=== PATIENT | female | born 1965 | race Caucasian/White ===

== ENCOUNTER 2018-01-18 13:18 | Emergency (ER) | payer MEDICAID, SELFPAY ==
[2018-01-18 13:27] VITALS: BP 118/73; PULSE 61; RESP 16; TEMP 36.7; O2SAT 94
[2018-01-18 13:47] VITALS: RESP 18
--- NOTE | 2018-01-18 14:03 | W.ED.GENAD ---
Discharge Plan Disposition Patient Disposition: HOME Condition: Stable Discharge Details Chief Complaint: Chest Pain Clinical Impression: Chest pain Primary Care Provider: Bertha Castillo ED Provider: Abbi Galindo Home Meds and New Rx's Prescriptions: Continue gabapentin 300 MG capsule 300 - 600 mg PO BID RF: 0 omeprazole 20 MG capsule,delayed release(DR/EC) 20 mg PO DAILY RF: 0 aspirin [Aspir-81] 81 MG tablet,delayed release (DR/EC) 81 mg PO DAILY Qty: 120 RF: 0 lisinopril 20 MG tablet 20 mg PO DAILY Qty: 30 RF: 1 atorvastatin 20 MG tablet 20 mg PO HS Qty: 30 RF: 1 fluoxetine [Prozac] 20 MG capsule 20 mg PO DAILY RF: 0 acetaminophen [Mapap Extra Strength] 500 MG tablet 1,000 mg PO PRN PRNRF: 0 Discharge Instructions Instructions: Chest Pain (ED) Additional Instructions: Please return immediately to the emergency department if you develop any new or worsening symptoms or if you become otherwise concerned. It is extremely important that you make an appointment to be seen this week by your primary care doctor in follow-up for this visit. Referrals: Bertha Castillo [Primary Care Provider] - Discharge Data Discharge Date/Time-TO BE ENTERED AT DEPARTURE: 01/18/18 19:27 Medical Decision Making MDM Narrative Medical decision making narrative: Lazara Gasca is a 53 y/o woman with history of hypertension, hyperlipidemia presenting to the emergency department with sharp left-sided chest pain that began while walking, did not worsen with continued walking, did not improve quickly with rest, but has resolved since arriving in the emergency department. On exam patient is very well and nontoxic-appearing. She has benign cardiopulmonary exam. Concern for muscular skeletal versus GERD versus ACS versus PE. Plan for EKG, chest x-ray, screening labs, telemetry. Will monitor and reassess. Patient reports that she took ASA prior to arrival. Patient has remained pain-free throughout her ER visit. Repeat EKG unchanged. Labs are nondiagnostic, repeat troponin okay. Patient with significant risk factors, however nature of chest pain atypical for ACS. Discussed admission to the hospital for monitoring/stress versus outpatient stress test and patient elects for outpatient follow-up with cardiology and outpatient stress test. Lengthy discussion with patient regarding return to emergency department precautions and importance of outpatient follow-up with PCP, cardiology, and stress test this week. She is amenable to the plan. Medical Records Medical records reviewed: Yes I reviewed the patient's medical records. Imaging Data Radiologic Study: Attestation: I personally reviewed and interpreted this imaging study as follows: Radiologist's impression: PA AND LATERAL CHEST: Comparison 07/13/17. The heart is normal in size. The lungs are clear. The mediastinal structures and pleura appear intact. CONCLUSION: Normal chest. Lab Data Lab results reviewed: Yes I reviewed the patient's lab results. ECG Data Attestation: I personally reviewed and interpreted this ECG (s) as follows: Interpretation: EKG shows normal sinus rhythm at 60 with left axis, poor R-wave progression, no acute ischemic changes. No STEMI, nondiagnostic EKG EKG shows sinus bradycardia at 51 with left axis, poor R-wave progression, no acute ischemic changes, unchanged from prior HPI - General Adult General Mode of arrival: ambulatory. Date/Time Provider Initiated Documentation: 01/18/18 14:03. Limitations to Documentation: no limitations. Information obtained by: patient, RN notes reviewed and old records reviewed. HPI Narrative: Lazara Gasca is a 53 y/o woman with h/o HLD, HTN, GERD presenting to the emergency department with chest pain. Patient reports that she was walking today when she noticed sharp pain in her left chest. Pain was mild. C/o tingling in the fingers of her left as well. Patient reports that she continued to walk home and felt no increase or decrease in the pain. Patient reports that resting did not change it. She reports that since arriving in the emergency department her pain has resolved completely. She denies cough, shortness of breath, palpitations, any other pain, nausea, vomiting, diarrhea, fevers, recent illness, recent travel. Never had similar pain in the past. Patient reports that she walks a similar distance at a similar rate frequently without any symptoms. Patient reports she had a stress test 1 year ago that was negative. Related Data Home Medications Medication Instructions Recorded Confirmed aspirin [Aspir-81] 81 mg PO DAILY #120 tablet. 09/15/16 01/18/18 atorvastatin 20 mg PO HS #30 tablet 09/15/16 01/18/18 lisinopril 20 mg PO DAILY #30 tablet 09/15/16 01/18/18 gabapentin 300 - 600 mg PO BID tab-cap 01/26/17 01/18/18 omeprazole 20 mg PO DAILY tab-cap 01/26/17 01/18/18 acetaminophen [Mapap Extra 1,000 mg PO PRN PRN 05/24/17 01/18/18 Strength] fluoxetine [Prozac] 20 mg PO DAILY 07/13/17 01/18/18 Previous Rx's Medication Instructions Recorded aspirin [Aspir-81] 81 mg PO DAILY #120 tablet. 09/15/16 atorvastatin 20 mg PO HS #30 tablet 09/15/16 lisinopril 20 mg PO DAILY #30 tablet 09/15/16 Allergies Allergy/AdvReac Type Severity Reaction Status Date / Time phenytoin [From Dilantin] Allergy Mild Skin Rash Unverified 01/18/18 13:30 clonidine AdvReac Mild Other (See Unverified 01/18/18 13:30 Comment) tramadol AdvReac Mild Nausea Unverified 01/18/18 13:30 General Stated Complaint: Chest Pain ARCELIA: 2 Review of Systems Review of Systems Constitutional: denies fevers Eyes: denies eye pain ENT: denies facial pain, dental pain, sore throat Cardiovascular: reports chest pain Respiratory: denies SOB, cough GI: denies abdominal pain, vomiting, diarrhea : denies flank pain MSK: denies back pain, neck pain, arthralgias, myalgias Skin: denies rash Neuro: denies headaches, lightheadedness, weakness PFSH Medical History Chest pain, unspecified Crushing injury Degeneration of lumbosacral intervertebral disc HTN (hypertension) History of heart attack Hyperlipidemia Low back pain Lumbar spondylosis Myofascial pain Sacroiliitis Social History Smoking/Tobacco Use Status: Never Exam Narrative Exam Narrative: Constitutional: well and [id number], pleasant, conversing normally HENT: head atraumatic, normocephalic normal inspection, mucous membranes moist Eyes: conjunctiva normal, sclera normal, pupils 3mm b/l Neck: no stridor, normal ROM, trachea midline Chest: normal inspection Resp: normal work of breathing, LCTAB Cardio: normal rate, normal rhythm, no murmur appreciated GI: abdomen soft, non-tender, non-distended Back: normal inspection, no rash Skin: warm, dry, normal color, no rash Neuro: alert, not altered, grossly non-focal, normal tone Ext: no edema Psych: normal mood, normal affect, normal behavior Course Vital Signs Temperature 36.7 C 01/18/18 13:27 Pulse 61 01/18/18 13:27 Respiratory Rate 16 01/18/18 13:27 Blood Pressure 118/73 01/18/18 13:27 Pulse Oximetry 94 L 01/18/18 13:27 Temperature 36.7 C 01/18/18 13:27 Pulse 61 01/18/18 13:27 Respiratory Rate 18 01/18/18 13:47 Blood Pressure 118/73 01/18/18 13:27 Pulse Oximetry 94 L 01/18/18 13:27
--- NOTE | 2018-01-18 14:12 | DI.RAD_ITS ---
SYMPTOMS/DIAGNOSIS: CHEST PAIN PA AND LATERAL CHEST: Comparison 07/13/17. The heart is normal in size. The lungs are clear. The mediastinal structures and pleura appear intact. CONCLUSION: Normal chest.
[2018-01-18 14:27] LABS: Abs Immature Grans 0.02 k/cumm (0.0-0.09); Absolute Basophil Count 0.04 k/cumm (0.0-0.2); Absolute Eosinophil Count 0.24 k/cumm (0.0-0.7); Absolute Monocyte Count 0.92 k/cumm (0.11-0.7); Absolute Neutrophil Count 4.82 k/cumm (1.2-6.7); Basophils % 0.5; Eosinophils % 2.7; Immature Grans % 0.2; Lymphocytes % 31.7; Mean Corp. HGB Concentration 32.5 g/dL (32.0-36.0); Mean Corpuscular Volume 89.3 fL (80-95); Monocytes % 10.4; Neutrophils % 54.5; Platelet Count 309 x1000/uL (130-400); RBC 4.48 m/cumm (4.00-5.20); RBC Distribution Width 13.3 % (11.7-14.6); White Blood Cell Count 8.84 k/cumm (4.4-10.8)
[2018-01-18 14:46] LABS: ALT 28 U/L (12-78); AST 19 U/L (15-37); Albumin 4.1 g/dL (3.4-5.0); Alkaline Phosphatase 93 U/L (46-116); BUN 19 mg/dL (7-18); Bilirubin, Total 0.5 mg/dL (0.2-1.0); CREATININE 0.92 mg/dL (0.55-1.02); Calcium 8.8 mg/dL (8.5-10.1); Chloride 104 mmol/L (98-107); Glucose 86 mg/dL (70-100); Sodium 140 mmol/L (136-145); Total Protein 7.6 g/dL (6.4-8.2)
[2018-01-18 14:49] LABS: Troponin I < 0.02 ng/mL (0.00-0.06)
[2018-01-18 15:03] LABS: D-Dimer 252 ng/mlFEU (<500)
[2018-01-18 15:43] VITALS: BP 120/73; PULSE 59; RESP 16; TEMP 36.9; O2SAT 95
[2018-01-18 18:14] LABS: Troponin I < 0.02 ng/mL (0.00-0.06)
--- NOTE | 2018-01-18 18:52 | ED.GENADUL_ITS ---
Discharge Plan Disposition Patient Disposition: HOME Condition: Stable Discharge Details Chief Complaint: Chest Pain Clinical Impression: Chest pain Primary Care Provider: Bertha Castillo ED Provider: Abbi Galindo Home Meds and New Rx's Prescriptions: Continue gabapentin 300 MG capsule 300 - 600 mg PO BID RF: 0 omeprazole 20 MG capsule,delayed release(DR/EC) 20 mg PO DAILY RF: 0 aspirin [Aspir-81] 81 MG tablet,delayed release (DR/EC) 81 mg PO DAILY Qty: 120 RF: 0 lisinopril 20 MG tablet 20 mg PO DAILY Qty: 30 RF: 1 atorvastatin 20 MG tablet 20 mg PO HS Qty: 30 RF: 1 fluoxetine [Prozac] 20 MG capsule 20 mg PO DAILY RF: 0 acetaminophen [Mapap Extra Strength] 500 MG tablet 1,000 mg PO PRN PRNRF: 0 Discharge Instructions Instructions: Chest Pain (ED) Additional Instructions: Please return immediately to the emergency department if you develop any new or worsening symptoms or if you become otherwise concerned. It is extremely important that you make an appointment to be seen this week by your primary care doctor in follow-up for this visit. Referrals: Bertha Castillo [Primary Care Provider] - Discharge Data Discharge Date/Time-TO BE ENTERED AT DEPARTURE: 01/18/18 19:27 Medical Decision Making MDM Narrative Medical decision making narrative: Lazara Gasca is a 53 y/o woman with history of hypertension, hyperlipidemia presenting to the emergency department with sharp left-sided chest pain that began while walking, did not worsen with continued walking, did not improve quickly with rest, but has resolved since arriving in the emergency department. On exam patient is very well and nontoxic -appearing. She has benign cardiopulmonary exam. Concern for muscular skeletal versus GERD versus ACS versus PE. Plan for EKG, chest x-ray, screening labs, telemetry. Will monitor and reassess. Patient reports that she took ASA prior to arrival. Patient has remained pain-free throughout her ER visit. Repeat EKG unchanged. Labs are nondiagnostic, repeat troponin okay. Patient with significant risk factors, however nature of chest pain atypical for ACS. Discussed admission to the hospital for monitoring/stress versus outpatient stress test and patient elects for outpatient follow-up with cardiology and outpatient stress test. Lengthy discussion with patient regarding return to emergency department precautions and importance of outpatient follow-up with PCP, cardiology, and stress test this week. She is amenable to the plan. Medical Records Medical records reviewed: Yes I reviewed the patient's medical records. Imaging Data Radiologic Study: Attestation: I personally reviewed and interpreted this imaging study as follows: Radiologist's impression: PA AND LATERAL CHEST: Comparison 07/13/17. The heart is normal in size. The lungs are clear. The mediastinal structures and pleura appear intact. CONCLUSION: Normal chest. Lab Data Lab results reviewed: Yes I reviewed the patient's lab results. ECG Data Attestation: I personally reviewed and interpreted this ECG (s) as follows: Interpretation: EKG shows normal sinus rhythm at 60 with left axis, poor R-wave progression, no acute ischemic changes. No STEMI, nondiagnostic EKG EKG shows sinus bradycardia at 51 with left axis, poor R-wave progression, no acute ischemic changes, unchanged from prior HPI - General Adult General Mode of arrival: ambulatory . Date/Time Provider Initiated Documentation: 01/18/18 14:03 . Limitations to Documentation: no limitations . Information obtained by: patient, RN notes reviewed and old records reviewed . HPI Narrative: Lazara Gasca is a 53 y/o woman with h/o HLD, HTN, GERD presenting to the emergency department with chest pain. Patient reports that she was walking today when she noticed sharp pain in her left chest. Pain was mild. C/o tingling in the fingers of her left as well. Patient reports that she continued to walk home and felt no increase or decrease in the pain. Patient reports that resting did not change it. She reports that since arriving in the emergency department her pain has resolved completely. She denies cough, shortness of breath, palpitations, any other pain, nausea, vomiting, diarrhea, fevers, recent illness, recent travel. Never had similar pain in the past. Patient reports that she walks a similar distance at a similar rate frequently without any symptoms. Patient reports she had a stress test 1 year ago that was negative. Related Data Home Medications Medication Instructions Recorded Confirmed aspirin [Aspir-81] 81 mg PO DAILY #120 tablet. 09/15/16 01/18/18 atorvastatin 20 mg PO HS #30 tablet 09/15/16 01/18/18 lisinopril 20 mg PO DAILY #30 tablet 09/15/16 01/18/18 gabapentin 300 - 600 mg PO BID tab-cap 01/26/17 01/18/18 omeprazole 20 mg PO DAILY tab-cap 01/26/17 01/18/18 acetaminophen [Mapap Extra 1,000 mg PO PRN PRN 05/24/17 01/18/18 Strength] fluoxetine [Prozac] 20 mg PO DAILY 07/13/17 01/18/18 Previous Rx's Medication Instructions Recorded aspirin [Aspir-81] 81 mg PO DAILY #120 tablet. 09/15/16 atorvastatin 20 mg PO HS #30 tablet 09/15/16 lisinopril 20 mg PO DAILY #30 tablet 09/15/16 Allergies Allergy/AdvReac Type Severity Reaction Status Date / Time phenytoin [From Dilantin] Allergy Mild Skin Rash Unverified 01/18/18 13:30 clonidine AdvReac Mild Other (See Unverified 01/18/18 13:30 Comment) tramadol AdvReac Mild Nausea Unverified 01/18/18 13:30 General Stated Complaint: Chest Pain ARCELIA: 2 Review of Systems Review of Systems Constitutional: denies fevers Eyes: denies eye pain ENT: denies facial pain, dental pain, sore throat Cardiovascular: reports chest pain Respiratory: denies SOB, cough GI: denies abdominal pain, vomiting, diarrhea : denies flank pain MSK: denies back pain, neck pain, arthralgias, myalgias Skin: denies rash Neuro: denies headaches, lightheadedness, weakness PFSH Medical History Chest pain, unspecified Crushing injury Degeneration of lumbosacral intervertebral disc HTN (hypertension) History of heart attack Hyperlipidemia Low back pain Lumbar spondylosis Myofascial pain Sacroiliitis Social History Smoking/Tobacco Use Status: Never Exam Narrative Exam Narrative: Constitutional: well and [id number], pleasant, conversing normally HENT: head atraumatic, normocephalic normal inspection, mucous membranes moist Eyes: conjunctiva normal, sclera normal, pupils 3mm b/l Neck: no stridor, normal ROM, trachea midline Chest: normal inspection Resp: normal work of breathing, LCTAB Cardio: normal rate, normal rhythm, no murmur appreciated GI: abdomen soft, non-tender, non-distended Back: normal inspection, no rash Skin: warm, dry, normal color, no rash Neuro: alert, not altered, grossly non-focal, normal tone Ext: no edema Psych: normal mood, normal affect, normal behavior Course Vital Signs Temperature 36.7 C 01/18/18 13:27 Pulse 61 01/18/18 13:27 Respiratory Rate 16 01/18/18 13:27 Blood Pressure 118/73 01/18/18 13:27 Pulse Oximetry 94 L 01/18/18 13:27 Temperature 36.7 C 01/18/18 13:27 Pulse 61 01/18/18 13:27 Respiratory Rate 18 01/18/18 13:47 Blood Pressure 118/73 01/18/18 13:27 Pulse Oximetry 94 L 01/18/18 13:27
--- NOTE | 2018-01-19 09:41 | PDOC.ERCMPRO ---
Care Management Progress Note 01/19/18-Pt seen on 01/18/18 for chest pain by Dr. Lora Galindo. F/U referral for this week faxed to [facility] as Jasper Castillo is Pt's PCP.
--- NOTE | 2018-01-19 09:42 | CMPROGNOTE_ITS ---
Care Management Progress Note 01/19/18-Pt seen on 01/18/18 for chest pain by Dr. Lora Galindo. F/U referral for this week faxed to [facility] as Jasper Castillo is Pt's PCP.
== END 2018-01-18 19:27 | disposition home or self-care (01) ==
PROVIDERS: Emergency Provider Student in an Organized Health Care Education/Training Program; PCP Nurse Practitioner Family
DX: R07.9 Chest pain, unspecified (principal); I25.2 Old myocardial infarction; I10 Essential (primary) hypertension
CPT/HCPCS: 36415; 80053; 93005; 99285; 71046; 84484; 85025; 85379; 93010

== ENCOUNTER 2018-04-19 10:43 | Day surgery (SDC) | payer MEDICAID, SELFPAY ==
--- NOTE | 2018-04-19 06:40 | W.COLOREPORT ---
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 Gasca is a pleasant 53-year-old female who was seen in the office for a screening colonoscopy. Risks, benefits and complications have been reviewed. Complications include but are not limited to bleeding, pain, perforation, missed small lesion/polyp, sore throat, aspiration and adverse reaction to the medications. Questions were entertained and answered to their satisfaction and they wished to proceed. No guarantees were given or implied. Prep: Miralax/Dulcolax Procedure Start Time: 13:29 Procedure End Time: 14:07 Retraction Time: 22 minutes Findings: Multiple adenomatous polyps Procedure Description: After informed consent was obtained the patient was taken to the procedure room and placed in a left decubitous position. Monitors were applied and a time out was done. The patients name, date of , procedure, allergies to medications and metal in their body was reviewed. The patient was then sedated. Once sedated and comfortable a rectal exam was done. External exam was normal. Internal exam revealed a normal sphincter tone and no palpable masses. The scope was then introduced and retro-flexed. No internal hemorrhoids were identified. The scope was then advanced to the cecum without difficulty. The TI and appendiceal orifice were identified. The prep was adequate. The scope was then slowly retracted over 22 minutes back into the rectum. Multiple polyps removed with cold forceps. One in the ascending colon, one in the transverse colon, one in the descending colon and 2 in the rectum. The scope was removed and the patient was woken up and taken back to Same day surgery in stable condition. The patient tolerated the procedure well and there were no immediate complications. Follow up: The patient should follow up in 3-5 years unless they develop changes in bowel habits or other new gastrointestinal complaints.
--- NOTE | 2018-04-19 06:41 | W.PM.DSUDISC ---
Discharge Plan Disposition Patient Disposition: HOME Condition: Good Discharge Details Reason For Visit: Colon Cancer Screening Attending Provider: Chloe Garland Primary Care Provider: Bertha Castillo Home Meds and New Rx's Prescriptions: Continued gabapentin 300 MG capsule 300 - 600 mg PO BID RF: 0 omeprazole 20 MG capsule,delayed release(DR/EC) 20 mg PO DAILY RF: 0 aspirin [Aspir-81] 81 MG tablet,delayed release (DR/EC) 81 mg PO DAILY Qty: 120 RF: 0 lisinopril 20 MG tablet 20 mg PO DAILY Qty: 30 RF: 1 atorvastatin 20 MG tablet 20 mg PO HS Qty: 30 RF: 1 fluoxetine [Prozac] 20 MG capsule 20 mg PO DAILY RF: 0 acetaminophen [Mapap Extra Strength] 500 MG tablet 1,000 mg PO PRN PRNRF: 0 Discontinued polyethylene glycol 3350 17 gram/dose powder 255 g PO ONCE Qty: 255 RF: 0 bisacodyl [Dulcolax (bisacodyl)] 5 mg tablet,delayed release (DR/EC) 5 mg PO ONCE Qty: 4 RF: 0 Discharge Instructions Instructions: Colonoscopy (DC), Colorectal Polyps (DC) Additional Instructions: Findings: Multiple polyps Follow up: 3-5 years New Medications: none Please call if you develop: fevers >101.5 Nausea or Vomiting Abdominal pain that is not transient DAY SURGERY UNIT POST COLONOSCOPY INSTRUCTIONS 1. Because there will be medication in your system for the next 24 hours, you may feel a little sleepy. Your coordination will be affected. Therefore: a. Do not drive or operate dangerous equipment for 24 hours. b. Do not drink alcohol beverages for 24 hours (not even beer). c. Plan to go home and rest for the day. 2. Generally there are no restrictions on your activity after a day or so has gone by, but you may feel a bit fatigued for a few days. 3 After you arrive home you may have a light meal and return to a normal diet as you can tolerate it without feeling sick to your stomach. 4. After surgery, you may feel pain or discomfort. This should be only transient, but if it persists please contact your doctor. 5. If there are any questions regarding the findings of your procedure, please feel free to contact your doctor. 6. If you are unable to contact your doctor with a problem, contact the hospital at [phone]. 7. Continue all your regular medications unless directed otherwise. I understand the above instructions and have no questions. Signature of Patient or Responsible Adult Escort Date/Time Name of Responsible Adult Escort Signature of Nurse Date/Time Activity:: Activity as Tolerated Diet:: As Tolerated Discharge Orders Discharge Orders: Discharge Order (Routine); Ordered 04/19/18 Ordered By: Chloe Garland DS: Diagnosis Discharge Diagnosis (1) Colorectal polyps: Status: Acute
[2018-04-19 11:18] VITALS: BP 128/76; PULSE 50; RESP 16; TEMP 37.4; O2SAT 98
[2018-04-19] MEDS: Lactated Ringers 1,000 ML 80 ML IV (11:35)
--- NOTE | 2018-04-19 13:50 | BOWEL_PTH ---
PATIENT: Lazara Gasca LOC: [facility] U#:[id number] AGE/SX: 53/F ROOM: RE04/19/[address]: Chloe Garland MD : [id number] BED: DIS: 04/19/2018 SPEC #: [id number] RECD: 04/19/18 18:13 STATUS: ANGUS REQ #: [id number] LUCAS: 04/19/18 13:[address]: Chloe Garland DEPT: Surgical Specimen RECD BY: Jovita Henson ENTERED: 04/19/18 18:14 SP TYPE: Bowel OTHR DR: Bertha Castillo Tissues: 1 - BIOPSY BOWEL 2 - BIOPSY BOWEL 3 - BIOPSY BOWEL 4 - BIOPSY BOWEL Procedures: GROSS AND MICRO LEVEL 4 Comments: [id number]
[2018-04-19 14:45] VITALS: BP 139/80; PULSE 49; RESP 16; TEMP 37.1; O2SAT 98
== END 2018-04-19 15:22 | disposition home or self-care (01) ==
LOC: SUR 10:44
PROVIDERS: PCP Nurse Practitioner Family; Visit Provider Surgery
PROC: 0DJD8ZZ Inspection of Lower Intestinal Tract, Via Natural or Artificial Opening Endoscopic (ICD-10-PCS; CPT 45378; principal; 2018-04-19 13:45)
DX: Z12.11 Encounter for screening for malignant neoplasm of colon (principal); D12.2 Benign neoplasm of ascending colon; D12.3 Benign neoplasm of transverse colon; D12.4 Benign neoplasm of descending colon; K62.1 Rectal polyp; I10 Essential (primary) hypertension
CPT/HCPCS: 45380; 88305

== ENCOUNTER 2018-05-03 15:31 | Outpatient (REF) | payer MEDICAID, SELFPAY ==
[2018-05-06 12:53] LABS: CA 125 7 U/mL (0-30)
== END 2018-05-03 15:51 ==
LOC: NCHCN 15:31
PROVIDERS: PCP Nurse Practitioner Family; Visit Provider Nurse Practitioner Family
DX: R10.32 Left lower quadrant pain (principal); Z80.41 Family history of malignant neoplasm of ovary
CPT/HCPCS: 86304

== ENCOUNTER 2018-06-28 15:10 | Outpatient (CLI) | payer MEDICAID, SELFPAY ==
--- NOTE | 2018-07-05 08:21 | HOLTER_ITS ---
HOLTER MONITOR DATE OF DICTATION July 03, 2018 TIME OF RECORDING June 28, 2018 DATE OF ANALYSIS July 01, 2018 REFERRING PHYSICIAN Rina Jay M.D. INDICATION Bradycardia. FINDINGS 1. Baseline sinus rhythm, 46-112 beats per minute, average 60 beats per minute. 2. Rare PAC, 6/2 days, No SVT, no AF. 3. Rare PVC, 1 couplet, and 1 triplet in 2 days, no VT. 4. No pauses. 5. SYMPTOMS - Chest pain x1 with sinus rhythm, 73 beats per minute. lightheaded x2 with sinus b radycardia, 54 and 58 beats per minute. Olegario Lloyd M.D. JF/greg T- 07/05/2018
== END 2018-06-28 15:30 ==
PROVIDERS: PCP Nurse Practitioner Family; Visit Provider Family Medicine
DX: R00.1 Bradycardia, unspecified (principal)
CPT/HCPCS: 93225

== ENCOUNTER 2018-07-01 09:14 | Outpatient (CLI) | payer MEDICAID, SELFPAY | END 2018-07-01 09:34 | PROVIDERS: PCP Nurse Practitioner Family; Visit Provider Family Medicine | DX: R00.1 Bradycardia, unspecified (principal) | CPT/HCPCS: 93226 ==

== ENCOUNTER 2018-08-07 17:23 | Emergency (ER) | payer MEDICAID, SELFPAY ==
[2018-08-07 17:26] VITALS: BP 129/68; PULSE 58; RESP 18; TEMP 36.8; O2SAT 95
--- NOTE | 2018-08-07 17:32 | DI.RAD_ITS ---
SYMPTOM/DIAGNOSIS: PAIN LT 5TH METATARSAL LEFT FOOT: Three views. No bone or joint abnormality is identified. The soft tissues are unremarkable. IMPRESSION: Negative examination.
--- NOTE | 2018-08-07 17:33 | W.ED.GENAD ---
Discharge Plan Disposition Patient Disposition: HOME Condition: Improving Discharge Details Chief Complaint: Orthopedic Clinical Impression: Strain of left foot Primary Care Provider: Bertha Castillo ED Provider: Thony Monroy Home Meds and New Rx's Prescriptions: Continued gabapentin 300 MG capsule 300 - 600 mg PO BID RF: 0 omeprazole 20 MG capsule,delayed release(DR/EC) 20 mg PO DAILY RF: 0 aspirin [Aspir-81] 81 MG tablet,delayed release (DR/EC) 81 mg PO DAILY Qty: 120 RF: 0 lisinopril 20 MG tablet 20 mg PO DAILY Qty: 30 RF: 1 atorvastatin 20 MG tablet 20 mg PO HS Qty: 30 RF: 1 fluoxetine [Prozac] 20 MG capsule 20 mg PO DAILY RF: 0 ibuprofen [Ibuprofen IB] 200 mg Tablet 600 mg PO QID PRNRF: 0 acetaminophen [Mapap Extra Strength] 500 MG tablet 1,000 mg PO PRN PRNRF: 0 Discharge Instructions Additional Instructions: Please wear a postop shoe or a hard soled shoe such as a clog for 2-3 weeks as needed. You may also obtain a carbon shank as a foot bed insert to keep a normal athletic shoes stiff. Use Tylenol if needed for pain in addition to ibuprofen. Return if you develop a fever, redness, worsening discomfort or any other concerns. Please follow-up with Bertha Castillo in clinic for recheck if not improving in 1 week's time. Medical Decision Making 53-year-old female presents with left lateral foot pain over 2 weeks time. Is atraumatic without history of injury. She has been ambulatory. she has not had a fever or rash. Her vital signs are unremarkable. She is tender along the fifth metatarsal proximally on exam. X-ray without underlying bony injury. Discussed with the patient she may have strain or subtle stress fracture that is not apparent on x-ray. Will treat with a postop shoe or hard soled shoe such as clog, which I discussed with her. She will follow-up in clinic for recheck if not improving. HPI General Mode of arrival: ambulatory. Date/Time Provider Initiated Documentation: 08/07/18 17:23. Limitations to Documentation: no limitations. Information obtained by: patient. History of Present Illness 53 year old F presents to the emergency department with the chief complaint of Left lateral foot pain for 2 weeks, worse today, worse with walking, described as moderate, Quality is described as aching and dull, and is localized to the left and lower extremity. Patient reports no radiation. Patient started experiencing this day(s) and it has been intermittent. Rest improves symptom(s), Other factors that worsen symptoms (Weightbearing) . Patient notes no other symptoms. and other (No injury); denies rash. Patient did receive the following treatments prior to arrival, NSAID Related Data Home Medications Medication Instructions Recorded Confirmed aspirin [Aspir-81] 81 mg PO DAILY #120 tablet. 09/15/16 08/07/18 atorvastatin 20 mg PO HS #30 tablet 09/15/16 08/07/18 lisinopril 20 mg PO DAILY #30 tablet 09/15/16 08/07/18 gabapentin 300 - 600 mg PO BID tab-cap 01/26/17 08/07/18 omeprazole 20 mg PO DAILY tab-cap 01/26/17 08/07/18 acetaminophen [Mapap Extra 1,000 mg PO PRN PRN 05/24/17 08/07/18 Strength] fluoxetine [Prozac] 20 mg PO DAILY 07/13/17 08/07/18 ibuprofen [Ibuprofen IB] 600 mg PO QID PRN 08/07/18 08/07/18 Previous Rx's Medication Instructions Recorded aspirin [Aspir-81] 81 mg PO DAILY #120 tablet. 09/15/16 atorvastatin 20 mg PO HS #30 tablet 09/15/16 lisinopril 20 mg PO DAILY #30 tablet 09/15/16 Allergies Allergy/AdvReac Type Severity Reaction Status Date / Time phenytoin [From Dilantin] Allergy Mild Skin Rash Unverified 08/07/18 17:30 trazodone Allergy Mild Verified 08/07/18 17:30 clonidine AdvReac Mild Other (See Unverified 08/07/18 17:30 Comment) tramadol AdvReac Mild Nausea Unverified 08/07/18 17:30 General Stated Complaint: Orthopedic ARCELIA: 4 Review of Systems Review of Systems 6 systems reviewed and otherwise negative. No numbness or tingling, no injury, no rash [facility] Medical History Colorectal polyps (Acute ~04/19/18) Chest pain, unspecified Crushing injury Degeneration of lumbosacral intervertebral disc HTN (hypertension) History of heart attack Hyperlipidemia Low back pain Lumbar spondylosis Myofascial pain Sacroiliitis Surgical History H/O colonoscopy (Chronic ~04/19/18) Social History Smoking/Tobacco Use Status: Never Alcohol Intake: never Drug use: Never Substance use type: does not use Do you feel safe at home: Yes Do you feel safe in your relationship?: Yes Exam Narrative Exam Narrative: GEN: awake, alert, oriented 3. Pleasant, well groomed, interactive. HEAD: Normocephalic, atraumatic EYES: PERRL, EOMI EXT: Full ROM, no edema, no rash. Tender left lateral foot, most at proximal metatarsal. 2+ DP. Sensation intact throughout. Capillary refill less than 2 seconds Neuro: Grossly normal neurologic exam, conversant, interactive. Psych: Speech fluent, thoughts congruent, affect normal Course Vital Signs Temperature 36.8 C 08/07/18 17:26 Pulse 58 L 08/07/18 17:26 Respiratory Rate 18 08/07/18 17:26 Blood Pressure 129/68 08/07/18 17:26 Pulse Oximetry 95 08/07/18 17:26 Temperature 36.8 C 08/07/18 17:26 Temperature Source Temporal Artery Scan 08/07/18 17:26 Pulse 58 L 08/07/18 17:26 Respiratory Rate 18 08/07/18 17:26 Respiratory Effort Non-Labored 08/07/18 17:29 Blood Pressure 129/68 08/07/18 17:26 Blood Pressure Position Sitting 08/07/18 17:26 Pulse Oximetry 95 08/07/18 17:26 Oxygen Delivery Method Room Air 08/07/18 17:26 Oxygen Flow Rate 0 08/07/18 17:26 Pain Level 4 08/07/18 17:31
--- NOTE | 2018-08-07 17:36 | ED.GENADUL_ITS ---
Discharge Plan Disposition Patient Disposition: HOME Condition: Improving Discharge Details Chief Complaint: Orthopedic Clinical Impression: Strain of left foot Primary Care Provider: Bertha Castillo ED Provider: Thony Monroy Home Meds and New Rx's Prescriptions: Continued gabapentin 300 MG capsule 300 - 600 mg PO BID RF: 0 omeprazole 20 MG capsule,delayed release(DR/EC) 20 mg PO DAILY RF: 0 aspirin [Aspir-81] 81 MG tablet,delayed release (DR/EC) 81 mg PO DAILY Qty: 120 RF: 0 lisinopril 20 MG tablet 20 mg PO DAILY Qty: 30 RF: 1 atorvastatin 20 MG tablet 20 mg PO HS Qty: 30 RF: 1 fluoxetine [Prozac] 20 MG capsule 20 mg PO DAILY RF: 0 ibuprofen [Ibuprofen IB] 200 mg Tablet 600 mg PO QID PRNRF: 0 acetaminophen [Mapap Extra Strength] 500 MG tablet 1,000 mg PO PRN PRNRF: 0 Discharge Instructions Additional Instructions: Please wear a postop shoe or a hard soled shoe such as a clog for 2-3 weeks as needed. You may also obtain a carbon shank as a foot bed insert to keep a normal athletic shoes stiff. Use Tylenol if needed for pain in addition to ibuprofen. Return if you develop a fever, redness, worsening discomfort or any other concerns. Please follow-up with Bertha Castillo in clinic for recheck if not improving in 1 week's time. Medical Decision Making 53-year-old female presents with left lateral foot pain over 2 weeks time. Is atraumatic without history of injury. She has been ambulatory. she has not had a fever or rash. Her vital signs are unremarkable. She is tender along the fifth metatarsal proximally on exam. X-ray without underlying bony injury. Discussed with the patient she may have strain or subtle stress fracture that is not apparent on x-ray. Will treat with a postop shoe or hard soled shoe such as clog, which I discussed with her. She will follow-up in clinic for recheck if not improving. HPI General Mode of arrival: ambulatory . Date/Time Provider Initiated Documentation: 08/07/18 17:23 . Limitations to Documentation: no limitations . Information obtained by: patient . History of Present Illness 53 year old F presents to the emergency department with the chief complaint of Left lateral foot pain for 2 weeks, worse today, worse with walking, described as moderate, Quality is described as aching and dull, and is localized to the left and lower extremity. Patient reports no radiation. Patient started experiencing this day(s) and it has been intermittent. Rest improves symptom(s), Other factors that worsen symptoms (Weightbearing) . Patient notes no other symptoms. and other (No injury); denies rash. Patient did receive the following treatments prior to arrival, NSAID Related Data Home Medications Medication Instructions Recorded Confirmed aspirin [Aspir-81] 81 mg PO DAILY #120 tablet. 09/15/16 08/07/18 atorvastatin 20 mg PO HS #30 tablet 09/15/16 08/07/18 lisinopril 20 mg PO DAILY #30 tablet 09/15/16 08/07/18 gabapentin 300 - 600 mg PO BID tab-cap 01/26/17 08/07/18 omeprazole 20 mg PO DAILY tab-cap 01/26/17 08/07/18 acetaminophen [Mapap Extra 1,000 mg PO PRN PRN 05/24/17 08/07/18 Strength] fluoxetine [Prozac] 20 mg PO DAILY 07/13/17 08/07/18 ibuprofen [Ibuprofen IB] 600 mg PO QID PRN 08/07/18 08/07/18 Previous Rx's Medication Instructions Recorded aspirin [Aspir-81] 81 mg PO DAILY #120 tablet. 09/15/16 atorvastatin 20 mg PO HS #30 tablet 09/15/16 lisinopril 20 mg PO DAILY #30 tablet 09/15/16 Allergies Allergy/AdvReac Type Severity Reaction Status Date / Time phenytoin [From Dilantin] Allergy Mild Skin Rash Unverified 08/07/18 17:30 trazodone Allergy Mild Verified 08/07/18 17:30 clonidine AdvReac Mild Other (See Unverified 08/07/18 17:30 Comment) tramadol AdvReac Mild Nausea Unverified 08/07/18 17:30 General Stated Complaint: Orthopedic ARCELIA: 4 Review of Systems Review of Systems 6 systems reviewed and otherwise negative. No numbness or tingling, no injury, no rash [facility] Medical History Colorectal polyps (Acute ~04/19/18) Chest pain, unspecified Crushing injury Degeneration of lumbosacral intervertebral disc HTN (hypertension) History of heart attack Hyperlipidemia Low back pain Lumbar spondylosis Myofascial pain Sacroiliitis Surgical History H/O colonoscopy (Chronic ~04/19/18) Social History Smoking/Tobacco Use Status: Never Alcohol Intake: never Drug use: Never Substance use type: does not use Do you feel safe at home: Yes Do you feel safe in your relationship?: Yes Exam Narrative Exam Narrative: GEN: awake, alert, oriented 3. Pleasant, well groomed, interactive. HEAD: Normocephalic, atraumatic EYES: PERRL, EOMI EXT: Full ROM, no edema, no rash. Tender left lateral foot, most at proximal metatarsal. 2+ DP. Sensation intact throughout. Capillary refill less than 2 seconds Neuro: Grossly normal neurologic exam, conversant, interactive. Psych: Speech fluent, thoughts congruent, affect normal Course Vital Signs Temperature 36.8 C 08/07/18 17:26 Pulse 58 L 08/07/18 17:26 Respiratory Rate 18 08/07/18 17:26 Blood Pressure 129/68 08/07/18 17:26 Pulse Oximetry 95 08/07/18 17:26 Temperature 36.8 C 08/07/18 17:26 Temperature Source Temporal Artery Scan 08/07/18 17:26 Pulse 58 L 08/07/18 17:26 Respiratory Rate 18 08/07/18 17:26 Respiratory Effort Non-Labored 08/07/18 17:29 Blood Pressure 129/68 08/07/18 17:26 Blood Pressure Position Sitting 08/07/18 17:26 Pulse Oximetry 95 08/07/18 17:26 Oxygen Delivery Method Room Air 08/07/18 17:26 Oxygen Flow Rate 0 08/07/18 17:26 Pain Level 4 08/07/18 17:31
--- NOTE | 2018-08-07 17:57 | DI.VRAD_ITS ---
EXAM: XR Right Foot Complete, 3 or more Views EXAM DATE/TIME: 08/07/2018 5:33 PM CLINICAL HISTORY: 53 years old, female; Pain; Foot; Left; Patient HX: Pain lateral prox left 5th metatar TECHNIQUE: Imaging protocol: XR Right foot 3 or more views. COMPARISON: No relevant prior studies available. FINDINGS: Bones/joints: Osseous anatomic alignment is well preserved. No acutely displaced fracture or dislocation. Joint spaces are well preserved. Soft tissues: Normal. IMPRESSION: Negative for acute skeletal pathology. Dictated and Authenticated by: Jesse Jacinto MD. Ordering:JHONATHAN Bhandari MD
== END 2018-08-07 18:03 | disposition home or self-care (01) ==
PROVIDERS: Emergency Provider Emergency Medicine; PCP Nurse Practitioner Family
DX: S96.912A Strain of unspecified muscle and tendon at ankle and foot level, left foot, initial encounter (principal); X58.XXXA Exposure to other specified factors, initial encounter
CPT/HCPCS: 29515; 99283; 73630; 99282

== ENCOUNTER 2018-12-01 07:26 | Emergency (ER) | payer MEDICAID, SELFPAY ==
[2018-12-01 07:29] VITALS: BP 140/71; PULSE 87; RESP 16; TEMP 36.7; O2SAT 97
--- NOTE | 2018-12-01 07:39 | ED.GENADUL_ITS ---
Discharge Plan Disposition Patient Disposition: STILL A PATIENT Condition: Good Discharge Details Chief Complaint: Headache Clinical Impression: Headache, migraine Primary Care Provider: Bertha Castillo ED Provider: Garth Noble Home Meds and New Rx's Prescriptions: New ondansetron 4 mg tablet,disintegrating 4 mg PO Q8H PRN (Reason: nausea and vomiting) Qty: 30 RF: 0 No Action gabapentin 300 MG capsule 300 - 600 mg PO BID RF: 0 omeprazole 20 MG capsule,delayed release(DR/EC) 20 mg PO DAILY RF: 0 aspirin [Aspir-81] 81 MG tablet,delayed release (DR/EC) 81 mg PO DAILY Qty: 120 RF: 0 lisinopril 20 MG tablet 20 mg PO DAILY Qty: 30 RF: 1 atorvastatin 20 MG tablet 20 mg PO HS Qty: 30 RF: 1 fluoxetine [Prozac] 20 MG capsule 20 mg PO DAILY RF: 0 ibuprofen [Ibuprofen IB] 200 mg Tablet 600 mg PO QID PRNRF: 0 acetaminophen [Mapap Extra Strength] 500 MG tablet 1,000 mg PO PRN PRNRF: 0 Discharge Instructions Instructions: Acute Headache (ED) Additional Instructions: Please avoid caffeine, processed food, and nitrates, please rest for the rest of the day. Please drink 8 to 10 cups of water per day. If you notice any worsening of your symptoms, or any new symptoms such as vomiting, diarrhea, fever, chills, shortness of breath, chest pain, numbness, weakness, or fainting , please return immediately to the emergency department for reevaluation. Please follow up with your primary care provider as soon as possible for reassessment and reevaluation. As always, it was a pleasure participating in your medical care today. Referrals: Bertha Castillo [Primary Care Provider] - Medical Decision Making <Mike Earl DO - Last Filed: 12/01/18 07:44> This is a very pleasant 53-year-old female past medical history of migraines, hypertension high cholesterol who presents for migraine headache. She had her headache started 3 days ago, unfortunately it only mildly improved with the sumatriptan. It is consistent with previous headaches that she has had in the past, including when she has had negative neuroimaging. She denies any red flags of fever chills neck pain or trauma. She feels that her symptoms are consistent with her previous migraine headaches. Exam demonstrates no focal neurologic deficits, normal vital signs, no other significant abnormalities. At this time signs and symptoms appear clinically consistent with migraine headache. We will give a migraine cocktail, rehydrate and reassess. No clear indication for further laboratory or imaging work-up at this time. Signs and symptoms are clinically inconsistent with meningitis, severe intracranial hemorrhage, or other acute process. The case will be signed out to my colleague Dr. Garth Noble for final disposition after migraine cocktail. <Garth Noble MD - Last Filed: 12/01/18 09:12> pt signed out to me pending reassessment after migraine meds. on my exam she is in no distress resting comfortably in bed in no distress. She has no focal neuro deficits and is ambulating unassisted with normal steady gait. MERINO is not worse of her life and started slowly and seems unlikely sah and no fevers, neck stiffness to suggest funnel coater infection. No findings on exam or history to suggest cavernous sinus thrombosis or cerebral venous thrombosis. She is feeling better and feels well enough to go home. will prescribe prn zofran and return precautions given HPI <Mike Earl DO - Last Filed: 12/01/18 07:44> General Date/Time Provider Initiated Documentation: 12/01/18 07:27 . HPI Narrative: This is a pleasant 53-year-old female with a past medical history of hypertension, high cholesterol, who presents today for evaluation of headache. She has a history of migraines in the past, she often takes sumatriptan for this, unfortunately this did not help her current headache. Headache is been present for the last 3 days, this sumatriptan did slightly improve her headache down from a 10 out of 10 to an 8 out of 10. Because she is unable to take multiple doses secondary to pharmaceutical recommendation she is coming here for headache relief. She states the headache is consistent with her previous migraines that she has had. It is made worse by loud noises, it is improved mildly by the sumatriptan. No associated fevers or neck pain. She denies any trauma. She has had neuroimaging in the past in conjunction with these headaches which was benign. The patient denies any headache red flags of worst headache of life, thunderclap headache, neck pain, fever, chills, concerning family history of polycystic kidney disease, Marfan syndrome, Meagan-Danlos syndrome, abdominal aortic aneurysm, aortic dissection, or intracranial aneurysm. Related Data Home Medications Medication Instructions Recorded Confirmed aspirin [Aspir-81] 81 mg PO DAILY #120 tablet. 09/15/16 08/07/18 atorvastatin 20 mg PO HS #30 tablet 09/15/16 08/07/18 lisinopril 20 mg PO DAILY #30 tablet 09/15/16 08/07/18 gabapentin 300 - 600 mg PO BID tab-cap 01/26/17 08/07/18 omeprazole 20 mg PO DAILY tab-cap 01/26/17 08/07/18 acetaminophen [Mapap Extra 1,000 mg PO PRN PRN 05/24/17 08/07/18 Strength] fluoxetine [Prozac] 20 mg PO DAILY 07/13/17 08/07/18 ibuprofen [Ibuprofen IB] 600 mg PO QID PRN 08/07/18 08/07/18 ondansetron 4 mg PO Q8H PRN #30 tab 12/01/18 Previous Rx's Medication Instructions Recorded aspirin [Aspir-81] 81 mg PO DAILY #120 tablet. 09/15/16 atorvastatin 20 mg PO HS #30 tablet 09/15/16 lisinopril 20 mg PO DAILY #30 tablet 09/15/16 ondansetron 4 mg PO Q8H PRN #30 tab 12/01/18 Allergies Allergy/AdvReac Type Severity Reaction Status Date / Time phenytoin [From Dilantin] Allergy Mild Skin Rash Unverified 08/07/18 17:30 trazodone Allergy Mild Verified 08/07/18 17:30 clonidine AdvReac Mild Other (See Unverified 08/07/18 17:30 Comment) tramadol AdvReac Mild Nausea Unverified 08/07/18 17:30 General Stated Complaint: Headache ARCELIA: 3 Review of Systems <Mike Earl DO - Last Filed: 12/01/18 07:44> Review of Systems All systems reviewed & are unremarkable except as noted in HPI and below PFSH <Mike Earl DO - Last Filed: 12/01/18 07:44> Social History Smoking/Tobacco Use Status: Never Alcohol Intake: never Drug use: Never Substance use type: does not use Do you feel safe at home: Yes Do you feel safe in your relationship?: Yes Exam <Mike Sherrie DO Mady - Last Filed: 12/01/18 07:44> Narrative Exam Narrative: 1.Const: Well-nourished, Well-developed, appearing stated age 2.Eyes: PERRL, no conjunctival injection, and symmetrical lids. 3.ENT: Atraumatic external nose and ears. Moist MM. Neck: Symmetric, trachea m idline, No thyromegaly. Patient demonstrates good movement of cervical neck. There is no nuchal rigidity, no nuchal tenderness. Patient is able to flex the neck without any difficulty or significant pain. Negative Kernig's and Brudzinski sign. 4.CVS: +S1/S2, No murmurs or gallops. Peripheral pulses 2+ and equal in all extremities. Brisk capillary refill in all extremities. 5.RESP: Unlabored respiratory effort. Clear to auscultation bilaterally. No wheezes rales or rhonchi 6.GI: Soft, Nontender/Nondistended, No hepatosplenomegaly. No guarding or rebound. 7.MSK: Normocephalic/Atraumatic, Extremities w/o deformity or ttp No cyanosis or clubbing, Normal movement of all extremities 8.Skin: Warm, Dry. No rashes or lesions. 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 Sensation grossly intact, no focal neurologic deficits. All 6 cardinal planes of vision are fully intact. No evidence of rotatory or vertical nystagmus. The patient demonstrated a normal [id number], good dexterity. There was no evidence of dysdiadochokinesia. Patient was able to ambulate without difficulty. There was no wide-based gait. Romberg, and [id number] are both normal on testing. Sensation was intact bilaterally as well as muscle strength bilaterally for all extremities. Patient was able to verbalize butter cup with no slurring, or miss pronunciation. 10.Psych: (AAO) x3. Appropriate mood and affect Course <Mike Sherrie DO Mady - Last Filed: 12/01/18 07:44> Vital Signs Temperature 36.7 C 12/01/18 07:29 Pulse 87 12/01/18 07:29 Respiratory Rate 16 07/31/19 07:29 Blood Pressure 140/71 12/01/18 07:29 Pulse Oximetry 97 12/01/18 07:29 Temperature 36.7 C 12/01/18 07:29 Temperature Source Temporal Artery Scan 12/01/18 07:29 Pulse 87 12/01/18 07:29 Respiratory Rate 16 12/01/18 07:29 Blood Pressure 140/71 12/01/18 07:29 Blood Pressure Position Sitting 12/01/18 07:29 Pulse Oximetry 97 12/01/18 07:29 Oxygen Delivery Method Room Air 12/01/18 07:29 Oxygen Flow Rate 0 12/01/18 07:29 Pain Level 8 12/01/18 07:29 Sign Out <Mike Earl DO - Last Filed: 12/01/18 07:44> Sign Out Data: Sign Out Comment: Pending resolution of headache after migraine cocktail. No clinical evidence of severe intracranial hemorrhage, or nuchal rigidity suggesting meningitis. Last updated by Mike Earl DO at 12/01/18 07:44
[2018-12-01] MEDS: Normal Saline 1,000 ML 1000 ML IV (07:47)
[2018-12-01] MEDS: Acetaminophen 500 MG TAB 1000 MG PO (07:57)
[2018-12-01] MEDS: diphenhydrAMINE 50 MG/ML VIAL 25 MG IVP (07:57)
[2018-12-01] MEDS: Ketorolac 15 MG/ML VIAL IVP (07:58)
[2018-12-01] MEDS: methylPREDNISolone SUCC 125 MG VIAL IVP (07:58)
[2018-12-01] MEDS: Prochlorperazine 10 MG/2 ML VIAL IVP (07:58)
--- NOTE | 2018-12-01 07:58 | NUR.NOTE ---
pt medicated as per mdo Nursing Note:
[2018-12-01 09:16] VITALS: BP 132/76; PULSE 81; RESP 16; TEMP 36.9; O2SAT 98
--- NOTE | 2018-12-01 09:17 | NUR.NOTE ---
iv removed dc reviewed with pt able to verblize understanding ambualtory steady on dc Nursing Note:
== END 2018-12-01 09:16 | disposition still patient (30) ==
PROVIDERS: Emergency Provider Emergency Medicine; PCP Nurse Practitioner Family
DX: G43.909 Migraine, unspecified, not intractable, without status migrainosus (principal); I10 Essential (primary) hypertension
CPT/HCPCS: 96361; 96374; 96375; 99284; J0780; J1200; J1885; J2930

== ENCOUNTER 2018-12-09 12:53 | Emergency (ER) | payer MEDICAID, SELFPAY ==
[2018-12-09 12:57] VITALS: BP 158/71; PULSE 60; RESP 16; TEMP 36.7; O2SAT 97
--- NOTE | 2018-12-09 13:25 | ED.GENADUL_ITS ---
Discharge Plan Disposition Patient Disposition: HOME Condition: Improving Discharge Details Chief Complaint: GenMedical Clinical Impression: General ill feeling, Myalgia Primary Care Provider: Bertha Castillo ED Provider: Thony Monroy Home Meds and New Rx's Prescriptions: Continued gabapentin 300 MG capsule 300 - 600 mg PO BID RF: 0 omeprazole 20 MG capsule,delayed release(DR/EC) 20 mg PO DAILY RF: 0 aspirin [Aspir-81] 81 MG tablet,delayed release (DR/EC) 81 mg PO DAILY Qty: 120 RF: 0 lisinopril 20 MG tablet 20 mg PO DAILY Qty: 30 RF: 1 atorvastatin 20 MG tablet 20 mg PO HS Qty: 30 RF: 1 fluoxetine [Prozac] 20 MG capsule 20 mg PO DAILY RF: 0 ibuprofen [Ibuprofen IB] 200 mg Tablet 600 mg PO QID PRNRF: 0 acetaminophen [Mapap Extra Strength] 500 MG tablet 1,000 mg PO PRN PRNRF: 0 ondansetron 4 mg tablet,disintegrating 4 mg PO Q8H PRN (Reason: nausea and vomiting) Qty: 30 RF: 0 Discharge Instructions Instructions: Musculoskeletal Pain (ED) Additional Instructions: Home to rest today. Small, frequent sips of fluids to maintain hydration Tylenol for needed for discomfort. As we discussed, return if you develop a fever, rash, shortness of breath, or any other acute concerns Discharge Data Discharge Date/Time-TO BE ENTERED AT DEPARTURE: 12/09/18 14:32 Medical Decision Making 53-year-old female presents with left aching arm pain and note of blood pressure 152 its morning at home beginning approximately 7 30-8. She states that she is had 2 days of a mild headache, dry cough, muscle aches that is located to the left arm as well as the left calf. No rash, no fever, denies chest pain or shortness of breath. She arrives to the ED 158/71, pulse 60, normal oxygenation. Differential diagnosis today includes benign process such as viral syndrome, muscular pain, must exclude ACS. Review of records notes that she has had a number of evaluations for atypical chest complaints including had exercise stress test in 2018 that was unremarkable. Chest x-ray without acute findings. Her laboratories are normal. Following the administration of ketorolac and small amount of fluids, Lab Data Lab results reviewed: Yes I reviewed the patient's lab results. Laboratory Results - last 24 hr 12/09/18 12/09/18 13:34 13:34 WBC 7.24 RBC 4.41 Hgb 13.0 Hct 39.3 MCV 89.1 MCH 29.5 MCHC 33.1 RDW 13.0 Plt Count 306 MPV 9.4 Immature Gran % 0.3 Neutrophils % 49.1 Lymphocytes % 35.4 Monocytes % 11.3 Eosinophils % 3.6 Basophils % 0.3 Absolute Neutrophils 3.56 Absolute Lymphocytes 2.56 Absolute Monocytes 0.82 H Absolute Eosinophils 0.26 Absolute Basophils 0.02 Sodium 141 Potassium 3.8 Chloride 104 Carbon Dioxide 28.3 Anion Gap 8.7 BUN 11 Creatinine 0.84 Estimated GFR/1.73 m2 >= 60.00 Glucose 87 Calcium 9.2 Magnesium 2.0 Total Bilirubin 0.5 AST 12 L ALT 37 Alkaline Phosphatase 84 Troponin I < 0.05 Total Protein 7.5 Albumin 4.2 ECG Data Attestation: I personally reviewed and interpreted this ECG (s) as follows: Interpretation: Normal sinus rhythm with a bradycardic rate of 52, the QRS is narrow, there is no ST segment elevation prep HPI General Mode of arrival: ambulatory . Date/Time Provider Initiated Documentation: 12/09/18 13:16 . Limitations to Documentation: no limitations . Information obtained by: patient . History of Present Illness 53 year old F presents to the emergency department with the chief complaint of Headache, cough, left arm pain, described as mild, Quality is described as dull and constant, and is localized to the head, left and upper extremity. Patient reports no radiation. Patient started experiencing this hour(s) and it has been constant. No relieving factors improve symptom(s), No exacerbating factors reported . Patient notes no other symptoms.. Patient did receive the following treatments prior to arrival, other (Tylenol) Related Data Home Medications Medication Instructions Recorded Confirmed aspirin [Aspir-81] 81 mg PO DAILY #120 tablet. 09/15/16 12/09/18 atorvastatin 20 mg PO HS #30 tablet 09/15/16 12/09/18 lisinopril 20 mg PO DAILY #30 tablet 09/15/16 12/09/18 gabapentin 300 - 600 mg PO BID tab-cap 01/26/17 12/09/18 omeprazole 20 mg PO DAILY tab-cap 01/26/17 12/09/18 acetaminophen [Mapap Extra 1,000 mg PO PRN PRN 05/24/17 12/09/18 Strength] fluoxetine [Prozac] 20 mg PO DAILY 07/13/17 12/09/18 ibuprofen [Ibuprofen IB] 600 mg PO QID PRN 08/07/18 12/09/18 ondansetron 4 mg PO Q8H PRN #30 tab 12/01/18 12/09/18 Previous Rx's Medication Instructions Recorded aspirin [Aspir-81] 81 mg PO DAILY #120 tablet. 09/15/16 atorvastatin 20 mg PO HS #30 tablet 09/15/16 lisinopril 20 mg PO DAILY #30 tablet 09/15/16 ondansetron 4 mg PO Q8H PRN #30 tab 12/01/18 Allergies Allergy/AdvReac Type Severity Reaction Status Date / Time phenytoin [From Dilantin] Allergy Mild Skin Rash Unverified 12/09/18 13:36 trazodone Allergy Mild Verified 12/09/18 13:36 clonidine AdvReac Mild Other (See Unverified 12/09/18 13:36 Comment) tramadol AdvReac Mild Nausea Unverified 12/09/18 13:36 General Stated Complaint: GenMedical ARCELIA: 4 Review of Systems Review of Systems 8 systems reviewed and otherwise negative. [facility] Social History Smoking/Tobacco Use Status: Never Alcohol Intake: never Drug use: Never Substance use type: does not use Do you feel safe at home: Yes Do you feel safe in your relationship?: Yes Exam Narrative Exam Narrative: GEN: awake, alert, oriented 3. Pleasant, well groomed, interactive. HEAD: Normocephalic, atraumatic ENT: Mucous membranes moist, oropharynx unremarkable, External ear exam unremarkable EYES: PERRL, EOMI NECK: Full ROM, no JARED, no menigismus CHEST/RESP: Nontender, clear to auscultation bilateral, no wheeze/rhonchi/rales CARDIOVASCULAR: RRR, no murmur, rub lexis. 2+ Rad pulse bilateral ABDOMEN: Soft, nontender, no mass. +Bowel sounds EXT: Full ROM, no edema, no rash. Nontender. Neuro: Grossly normal neurologic exam, conversant, interactive. Psych: Speech fluent, thoughts congruent, affect normal Course Vital Signs Temperature 36.7 C 12/09/18 12:57 Pulse 60 12/09/18 12:57 Respiratory Rate 16 12/09/18 12:57 Blood Pressure 158/71 H 12/09/18 12:57 Pulse Oximetry 97 12/09/18 12:57 Temperature 36.7 C 12/09/18 12:57 Temperature Source Skin 12/09/18 12:57 Pulse 60 12/09/18 12:57 Respiratory Rate 16 12/09/18 12:57 Blood Pressure 158/71 H 12/09/18 12:57 Blood Pressure Position Sitting 12/09/18 12:57 Pulse Oximetry 97 12/09/18 12:57 Oxygen Delivery Method Room Air 12/09/18 12:57 Oxygen Flow Rate 0 12/09/18 12:57
[2018-12-09] MEDS: Ketorolac 30 MG/ML VIAL IVP (13:35)
[2018-12-09 13:37] VITALS: RESP 15
--- NOTE | 2018-12-09 13:50 | DI.RAD_ITS ---
SYMPTOMS/DIAGNOSIS: LT ARM PAIN PA AND LATERAL CHEST: The heart is normal in size. The lungs are clear. The mediastinal structures and pleura appear intact. CONCLUSION: Normal chest.
[2018-12-09 13:57] LABS: Abs Immature Grans 0.02 k/cumm (0.0-0.09); Absolute Basophil Count 0.02 k/cumm (0.0-0.2); Absolute Eosinophil Count 0.26 k/cumm (0.0-0.7); Absolute Lymphocyte Count 2.56 k/cumm (1.2-3.4); Absolute Monocyte Count 0.82 k/cumm (0.11-0.7); Absolute Neutrophil Count 3.56 k/cumm (1.2-6.7); Basophils % 0.3; Eosinophils % 3.6; HCT 39.3 % (36.0-46.0); Immature Grans % 0.3; Lymphocytes % 35.4; Mean Corp. HGB Concentration 33.1 g/dL (32.0-36.0); Mean Corpuscular Hemoglobin 29.5 pg (27.0-33.0); Mean Corpuscular Volume 89.1 fL (80-95); Mean Platelet Volume 9.4 fL (8.0-11.0); Monocytes % 11.3; Neutrophils % 49.1; Platelet Count 306 x1000/uL (130-400); RBC 4.41 m/cumm (4.00-5.20); White Blood Cell Count 7.24 k/cumm (4.4-10.8)
[2018-12-09 14:03] LABS: ALT 37 U/L (12-78); AST 12 U/L (15-37); Albumin 4.2 g/dL (3.4-5.0); Alkaline Phosphatase 84 U/L (46-116); Anion Gap 8.7 mmol/L (3-11); BUN 11 mg/dL (7-18); Bilirubin, Total 0.5 mg/dL (0.2-1.0); CO2 28.3 mmol/L (21.0-32.0); CREATININE 0.84 mg/dL (0.55-1.02); Calcium 9.2 mg/dL (8.5-10.1); Chloride 104 mmol/L (98-107); Glucose 87 mg/dL (70-100); Potassium 3.8 mmol/L (3.5-5.1); Sodium 141 mmol/L (136-145); Total Protein 7.5 g/dL (6.4-8.2)
[2018-12-09 14:05] LABS: Troponin I < 0.05 ng/mL (0.00-0.06)
[2018-12-09 14:26] VITALS: BP 142/79; PULSE 67; RESP 16; TEMP 36.9; O2SAT 98
== END 2018-12-09 14:32 | disposition home or self-care (01) ==
PROVIDERS: Emergency Provider Emergency Medicine; PCP Nurse Practitioner Family
DX: M79.10 Myalgia, unspecified site (principal); R51 Headache; R05 Cough; I10 Essential (primary) hypertension
CPT/HCPCS: 36415; 80053; 93005; 96374; 99285; 71046; 83735; 84484; 85025; 93010; 99284; J1885

== ENCOUNTER 2019-01-31 14:17 | Outpatient (CLI) | payer MEDICAID, SELFPAY ==
--- NOTE | 2019-01-31 14:27 | DI.RAD_ITS ---
EXAM: XR HUMERUS LT CLINICAL HISTORY: LT ARM PAIN, M79.602. TECHNIQUE: 2D digital imaging was performed. COMPARISON: No exams were available for comparison FINDINGS: BONES: No acute fracture is present. No bony destructive lesion is seen. Visualized portion of elbow and shoulder joints are unremarkable. SOFT TISSUE: Normal. IMPRESSION: Unremarkable radiographs of the left humerus.
== END 2019-01-31 14:37 ==
PROVIDERS: PCP Nurse Practitioner Family; Visit Provider Nurse Practitioner Family
DX: M79.602 Pain in left arm (principal)
CPT/HCPCS: 73060

== ENCOUNTER 2019-03-29 00:22 | Outpatient (CLI) | payer MEDICAID, SELFPAY ==
--- NOTE | 2019-03-29 10:16 | DI.MAMMO_ITS ---
EXAM: MAMMO SCREENING CLINICAL HISTORY: SCREENING Z12.39 TECHNIQUE: Mammograms were interpreted according to the usual protocol including computer analysis w [employer] CAD system, tomosynthesis and C-view imaging. COMPARISON: [id number] FINDINGS: The breasts are composed of scattered areas of fibroglandular densities, breast density category B. No suspicious masses or suspicious microcalcifications are seen. There has been no significant change . IMPRESSION: Category 1, negative mammogram. Yearly screening mammography is recommended. BI-RADS Cat 1 - Negative Breast Density - Category B - Scattered areas of fibroglandular density
== END 2019-03-29 00:42 ==
PROVIDERS: PCP Nurse Practitioner Family; Visit Provider Family Medicine
DX: Z12.31 Encounter for screening mammogram for malignant neoplasm of breast (principal)
CPT/HCPCS: 77063; 77067

== ENCOUNTER 2019-06-02 12:21 | Observation (INO) | payer MEDICAID, SELFPAY ==
[2019-06-02] VITALS (8 sets, daily range): BP systolic 118–143; BP diastolic 69–80; PULSE 50–62; RESP 14–18; TEMP 36.6–37.8; O2SAT 94–99
[2019-06-02 13:18] LABS: Bilirubin Negative (Negative); Blood Trace-intact (Negative); Clarity Clear (Clear); Glucose Negative (Negative); Ketones Negative (Negative); Leukocyte Esterase Negative (Negative); Nitrite Negative (Negative)
[2019-06-02 13:27] LABS: Bacteria Few HPF (Negative); C & S Indicated? No; Casts Negative LPF (Negative); Crystals Negative HPF (Negative); Epithelial Cells Negative HPF (Negative); Mucus Negative (Negative); Other Cells Negative (Negative); RBC 0-2 HPF (0-2); WBC Negative HPF (0-5)
--- NOTE | 2019-06-02 13:27 | W.ED.GENAD ---
Discharge Plan Disposition Patient Disposition: [facility] INPATIENT Condition: Serious Discharge Details Chief Complaint: Chest Pain Clinical Impression: Chest pain Primary Care Provider: Cheryle Perdomo ED Provider: Julius Galindo Home Meds and New Rx's Prescriptions: No Action omeprazole 20 MG capsule,delayed release(DR/EC) 20 mg PO DAILY RF: 0 meloxicam 15 mg tablet 15 mg PO DAILY RF: 0 fluoxetine [Prozac] 20 mg capsule 40 mg PO DAILY RF: 0 magnesium oxide 400 mg magnesium capsule 400 mg PO DAILY RF: 0 nitroglycerin [Nitrostat] 0.4 mg tablet, sublingual 0.4 mg SL Q5-15M PRNRF: 0 amlodipine 2.5 mg tablet 2.5 mg PO DAILY RF: 0 gabapentin 300 mg capsule 300 mg PO TID RF: 0 topiramate [Topamax] 25 mg tablet 25 mg PO QHS Qty: 30 RF: 5 aspirin [Aspir-81] 81 MG tablet,delayed release (DR/EC) 81 mg PO DAILY Qty: 120 RF: 0 lisinopril 20 MG tablet 20 mg PO DAILY Qty: 30 RF: 1 atorvastatin 20 MG tablet 20 mg PO HS Qty: 30 RF: 1 ibuprofen [Ibuprofen IB] 200 mg Tablet 600 mg PO QID PRNRF: 0 acetaminophen [Mapap Extra Strength] 500 MG tablet 1,000 mg PO PRN PRNRF: 0 Medical Decision Making 54-year-old female with history of hypertension hyperlipidemia presents with chest pressure that started this morning around 1030. Patient also with low abdominal pain radiating to her low back. Screening ECG was reviewed and interpreted by me: Sinus bradycardia 51 bpm, left axis deviation, no STEMI, nondiagnostic. Labs reviewed: Initial troponin negative. CTA of the chest abdomen pelvis was interpreted by radiology as negative. Second ECG was reviewed and interpreted by me: Sinus bradycardia 53 bpm, left axis deviation, no significant change from prior ECG. Patient was given nitroglycerin x2 and pain significantly improved from 5 out of 10 to less than 1 out of 10. Patient took baby aspirin this morning. She was given additional aspirin 243 mg. Plan will be to hospitalize the patient for further rule out for ACS. HPI General Mode of arrival: ambulatory. Date/Time Provider Initiated Documentation: 06/02/19 12:37. Limitations to Documentation: no limitations. Information obtained by: patient. HPI Narrative: 54-year-old female with history of hyperlipidemia and hypertension presents with chief complaint of chest pain. Pain started around 1030 this morning and has persisted. Pain is described as pressure. Pressure is moderate. Pressure is localized to retrosternal. Pain does not worsen with inspiration. No associated nausea, diaphoresis, or shortness of breath. No leg swelling or calf pain. Patient does note she is felt tired for a couple weeks. She is also had some mild to moderate lower midline abdominal pain today that has radiated to her back. Related Data Home Medications Medication Instructions Recorded Confirmed aspirin [Aspir-81] 81 mg PO DAILY #120 tablet. 09/15/16 06/02/19 atorvastatin 20 mg PO HS #30 tab 09/15/16 06/02/19 lisinopril 20 mg PO DAILY #30 tab 09/15/16 06/02/19 omeprazole 20 mg PO DAILY tab-cap 01/26/17 06/02/19 acetaminophen [Mapap Extra 1,000 mg PO PRN PRN 05/24/17 06/02/19 Strength] ibuprofen [Ibuprofen IB] 600 mg PO QID PRN 08/07/18 06/02/19 amlodipine 2.5 mg tablet 2.5 mg PO DAILY 01/14/19 06/02/19 fluoxetine 20 mg capsule 40 mg PO DAILY cap 01/14/19 06/02/19 gabapentin 300 mg capsule 300 mg PO TID tab-cap 01/14/19 06/02/19 magnesium oxide 400 mg PO DAILY 01/14/19 06/02/19 meloxicam 15 mg tablet 15 mg PO DAILY 01/14/19 06/02/19 nitroglycerin 0.4 mg sublingual 0.4 mg SL Q5-15M PRN 01/14/19 06/02/19 tablet topiramate 25 mg tablet 25 mg PO QHS #30 tab 03/23/19 06/02/19 Previous Rx's Medication Instructions Recorded aspirin [Aspir-81] 81 mg PO DAILY #120 tablet. 09/15/16 atorvastatin 20 mg PO HS #30 tab 09/15/16 lisinopril 20 mg PO DAILY #30 tab 09/15/16 topiramate 25 mg tablet 25 mg PO QHS #30 tab 03/23/19 Allergies Allergy/AdvReac Type Severity Reaction Status Date / Time phenytoin [From Dilantin] Allergy Mild Skin Rash Unverified 06/02/19 09:40 trazodone Allergy Mild Verified 06/02/19 09:40 clonidine AdvReac Mild Other (See Unverified 06/02/19 09:40 Comment) tramadol AdvReac Mild Nausea Unverified 06/02/19 09:40 General Stated Complaint: Chest Pain ARCELIA: 3 Review of Systems All systems reviewed & are unremarkable except as noted in HPI and below Constitutional Constitutional: Reports fatigue Cardiovascular Cardiovascular: Reports chest pain Gastrointestinal Gastrointestinal: Reports abdominal pain Endocrine Endocrine: Reports fatigue PFSH Medical History Bradycardia (Acute) Colorectal polyps (Acute ~04/19/18) Degeneration of lumbosacral intervertebral disc HTN (hypertension) Hyperlipidemia Knee pain (Acute) Low back pain Migraine headache without aura (Acute) Myofascial pain Otalgia of left ear (Acute) Prinzmetal angina (Acute) Sacroiliitis Spinal stenosis (Acute) Thoracic back pain (Acute) Varicose veins of left lower extremity (Acute) Surgical History H/O colonoscopy (Chronic ~04/19/18) S/P appendectomy (Acute) S/P cholecystectomy (Acute) S/P tubal ligation (Acute) Status post carpal tunnel release of both wrists (Acute) Family History Mother , age 69 Heart disease Lung cancer Father No problems noted. Sister , age 58 Depression Hyperlipidemia Bone cancer Sister Depression Sister No problems noted. Brother Heart disease Social History Smoking/Tobacco Use Status: Never Alcohol Intake: never Drug use: Never Substance use type: does not use Caregiver/Support person: No Household members: none Housing: apartment Number of Children: 2 Communication Needs: None Pets and animals: Yes Pets and animals: cat(s) Sexually active: Yes Do you think of yourself as: straight/heterosexual Current gender identity: male What is your relationship status?: How often do you talk on the phone with friends or family?: three or more times per week How often do you get together with friends or relatives?: twice per week How often do you attend nondenominational or jehovah's witness services?: 1-3 times per year Do you belong to any clubs or organized social groups?: no Panel score (0-1 are the most socially isolated patients): 1 What type of physical activity do you participate in: walking Duration: 15-30 minutes/day Frequency: daily Lizzy/Anabaptism: No preference Special lizzy needs: No Seatbelt use: always 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 Do you feel safe at home: Yes Do you feel safe in your relationship?: Yes Exam Const General: cooperative and no acute distress HENMT Mouth: moist mucous membranes Eyes Conjunctivae: normal conjunctivae Sclera: normal sclerae Neck Neck: trachea midline and supple Resp Auscultation: clear to auscultation bilaterally, no rales, no rhonchi and no wheezes Cardio Jugular venous pressure: no JVD Rate: regular rate and not tachycardic Rhythm: regular rhythm GI Palpation: soft, not firm, no guarding, no masses, not rigid and tender other (Mid lower abdomen) Auscultation: normal bowel sounds Skin General skin exam: no rashes or lesions noted Neuro General: alert, awake, oriented x3 and tone normal Extrem General: no edema Psych Appearance: grossly normal Mental Status: mental status grossly normal Speech and Movement: speech and movement normal Course Vital Signs Vital signs: Vital Signs Temperature 36.6 C 06/02/19 12:25 Pulse 62 06/02/19 12:25 Respiratory Rate 16 06/02/19 12:25 Blood Pressure 128/69 06/02/19 12:25 Pulse Oximetry 99 06/02/19 12:25 Temperature 36.6 C 06/02/19 12:25 Temperature Source Skin 06/02/19 12:25 Pulse 62 06/02/19 12:25 Respiratory Rate 16 06/02/19 12:25 Respiratory Effort 06/02/19 12:31 Blood Pressure 128/69 06/02/19 12:25 Blood Pressure Position Sitting 06/02/19 12:25 Pulse Oximetry 99 06/02/19 12:25 Oxygen Delivery Method Room Air 06/02/19 12:25 Oxygen Flow Rate 0 06/02/19 12:25 Pain Level 5 06/02/19 12:25 Comment 06/02/19 12:25 Lab/Test Results Lab/Test Results: Laboratory Tests Range/Units 06/02/19 13:00 Urine Color (Yellow) Yellow Urine Clarity (Clear) Clear Urine pH (5-8) 7.0 Ur Specific [place] (1.005-1.025) 1.020 Urine Protein (Negative) mg/dL Negative Urine Ketones (Negative) mg/dL Negative Urine Blood (Negative) Trace-intact H Urine Nitrite (Negative) Negative Urine Bilirubin (Negative) Negative Urine Urobilinogen (Up TO 0.2) EU/dL 1.0 H Ur Leukocyte Esterase (Negative) Negative Urine RBC (0-2) HPF 0-2 Urine WBC (0-5) HPF Negative Ur Epithelial Cells (Negative) HPF Negative Urine Crystals (Negative) HPF Negative Urine Bacteria (Negative) HPF Few Urine Casts (Negative) LPF Negative Urine Mucus (Negative) Negative Urine Other (Negative) Negative Ur Culture Indicated? No Urine Glucose (Negative) mg/dL Negative
--- NOTE | 2019-06-02 13:46 | NUR.NOTE ---
To room 1 with c/o abd pain, back pain and chest pressure. Pt reports feeling tired x several weeks, resolved in past few days. Yesterday developed abd pain and back pain. Denies fevers, N/V/D, last BM today, normal. Denies dysuria, frequency, urgency. SB on monitor. #20 to RAC, labs drawn. Plan for CT.
[2019-06-02 13:50] LABS: Abs Immature Grans 0.02 k/cumm (0.0-0.09); Absolute Basophil Count 0.02 k/cumm (0.0-0.2); Absolute Eosinophil Count 0.23 k/cumm (0.0-0.7); Absolute Lymphocyte Count 2.32 k/cumm (1.2-3.4); Absolute Monocyte Count 0.77 k/cumm (0.11-0.7); Absolute Neutrophil Count 4.21 k/cumm (1.2-6.7); Basophils % 0.3; HCT 40.5 % (36.0-46.0); HGB 13.4 g/dL (12.0-15.5); Immature Grans % 0.3 %; Lymphocytes % 30.6; Mean Corp. HGB Concentration 33.1 g/dL (32.0-36.0); Mean Corpuscular Hemoglobin 28.7 pg (27.0-33.0); Mean Corpuscular Volume 86.7 fL (80-95); Mean Platelet Volume 9.7 fL (8.0-11.0); Monocytes % 10.2; Neutrophils % 55.6; Platelet Count 325 x1000/uL (130-400); RBC 4.67 m/cumm (4.00-5.20); RBC Distribution Width 13.4 % (11.7-14.6); White Blood Cell Count 7.57 k/cumm (4.4-10.8)
[2019-06-02 14:10] LABS: ALT 29 U/L (14-59); AST 16 U/L (15-37); Albumin 4.1 g/dL (3.4-5.0); Alkaline Phosphatase 104 U/L (46-116); BUN 12 mg/dL (7-18); Bilirubin, Total 0.3 mg/dL (0.2-1.0); CREATININE 0.88 mg/dL (0.55-1.02); Calcium 8.7 mg/dL (8.5-10.1); Chloride 105 mmol/L (98-107); Glucose 97 mg/dL (74-106); Lipase 164 U/L (73-393); Potassium 3.8 mmol/L (3.5-5.1); Sodium 143 mmol/L (136-145); Total Protein 7.3 g/dL (6.4-8.2)
[2019-06-02 14:12] LABS: Troponin I < 0.05 ng/Ml (<0.06)
--- NOTE | 2019-06-02 14:50 | DI.CT_ITS ---
EXAM: CT THORAX ABD/PEL CTA CLINICAL HISTORY: chest pain and midline lower abd pain radia 2 back TECHNIQUE: COMPARISON: No exams were available for comparison FINDINGS: CT angiography of chest pelvis was bolus infusion of cc of Omnipaque 350. The lungs are clear and we ll expanded. No mediastinal or hilar adenopathy. No thoracic aortic aneurysm or dissection. No pul monary embolus. No pleural effusion or pneumothorax. There may be mild hepatic steatosis. Prior cholecystectomy and probable prior appendectomy noted. S pleen and pancreas appear normal. No biliary dilatation. Kidneys are unremarkable with incidental s mall renal cysts bilaterally. Adrenals are normal. Abdominal aorta is of normal diameter and no alan or vascular abnormality is seen involving branches of the abdominal aorta. No abdominal or pelvic ad enopathy. No focal bowel pathology. No significant abdominal wall hernia. No gross erosive or dest ructive lesion seen involving the bones. There are changes of vacuum disc phenomenon at L2-3 consist ent with disc degeneration with associated endplate sclerosis and prominent endplate hypertrophic mary nges, all consistent with degenerative change.. IMPRESSION: Negative CT angiography chest abdomen pelvis
[2019-06-02] MEDS: Omnipaque 350 MG/ML 100 ML BTL IJ (14:55)
[2019-06-02] MEDS: Normal Saline - Diluent 50 ML VIAL IV (14:56)
[2019-06-02] MEDS: Aspirin 81 MG CHEW 243 MG PO (16:12)
--- NOTE | 2019-06-02 16:24 | NUR.NOTE ---
Addendum entered by Ivonne Padilla 06/02/19 16:27: Per MD Galindo 2nd dose nitro given. Original Note: med wtih 243 asa a/o. Pain from 5 to 3 after 1 nitro SL.
--- NOTE | 2019-06-02 16:37 | NUR.NOTE ---
Pain from 3 to 1 after 2nd nitro. Pt reports 6/10 MERINO s/p nitro.
[2019-06-02] MEDS: Acetaminophen 500 MG TAB PO (16:52)
[2019-06-02 17:18] LABS: Troponin I < 0.05 ng/Ml (<0.06)
--- NOTE | 2019-06-02 18:06 | NUR.NOTE ---
Pt reports pain free at this time. Report to
[2019-06-02 19:01] LABS: HCG Qual (Urine) Negative
[2019-06-02] MEDS: Gabapentin 300 MG CAP PO (20:16)
[2019-06-02] MEDS: Enoxaparin 40 MG/0.4 ML SYR SC (20:16)
[2019-06-02] MEDS: Normal Saline 1,000 ML 100 ML IV (20:17)
--- NOTE | 2019-06-02 21:27 | W.PM.HP.N ---
Date of service: 06/02/19 Time of Service: 21:27 Assessment and Plan Assessment and plan (1) Chest pain: Status: Acute Assessment and plan: Patient's heart score is 3 which is a low probability.Given that she has had a prior cardiac work-up and seen a truck engine assembler and given her history of the nature of her chest discomfort and the fact that she is able to be physically active in her job without exertional dyspnea or exertional chest discomfort I think her probability of her symptoms being ischemic in origin are low probability. Nevertheless is been a couple years since her last stress test and she does have a significant family history and she cannot recall whether the stress test was just a plain treadmill or whether it was done with any imaging and therefore think she deserves a repeat stress test with MPI. If this is negative I would recommend that she have a formal GI evaluation with EGD since she has significant symptoms of GERD without a formal diagnosis. Her third troponin is come back negative at less than 0.05. We will go ahead and schedule her for a treadmill exercise test with nuclear MPI study in the morning. I will also check her other risk factors including glycohemoglobin A1c and check her lipid levels in the morning History of Present Illness History of Present Illness Chief Complaint: Chest pain Narrative: 54-year-old female non-smoker with past medical history significant for essential hypertension hyperlipidemia both well controlled on medications in a prior cardiac work-up for atypical chest pain approximately 1 to 2 years ago including a stress test and consultation with a truck engine assembler. 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 She states this began around 10:30 AM not associate with a physical activity. Not associated with any dyspnea or diaphoresis or radiating pain. She was evaluated in the emergency department by Dr. Julius Galindo and work-up included routine labs including serial troponins that were normal times the first 2 sets. 2 EKGs which were performed while she was having chest discomfort both of which were normal. CT angiography of the chest abdomen pelvis were performed and were negative for pulmonary embolism or aortic aneurysm. No abdominal or pelvic adenopathy was seen and no focal bowel pathology was seen. Patient was given nitroglycerin 0.4 mg x 2 doses at 4:13 PM and 4:27 PM with alleviation of her discomfort which is been present since 10:30 AM. Because of her multiple risk factors for coronary artery disease including hypertension, hyperlipidemia, postmenopausal state as well as a significant family history (mother had her first heart attack at age 48 and at age 69 from lung cancer, patient's brother had an AR at the age of 55, maternal aunts and uncles had coronary artery disease) it was decided admit the patient for further testing. Of note patient has seen truck engine assembler at [facility] because of her atypical chest pain and also for evaluation of sinus bradycardia. She reports she has had a ZIO Patch as well as prior stress tests. Review of Systems All systems reviewed & are unremarkable except as noted in HPI and below PFSH Medical History (Updated 06/02/19 @ 22:42 by Jc Staley) Bradycardia (Acute) Colorectal polyps (Resolved ~04/19/18) Degeneration of lumbosacral intervertebral disc HTN (hypertension) Hyperlipidemia Knee pain (Acute) Low back pain Migraine headache without aura (Acute) Myofascial pain Otalgia of left ear (Acute) Prinzmetal angina (Acute) Sacroiliitis Spinal stenosis (Acute) Thoracic back pain (Acute) Varicose veins of left lower extremity (Acute) Surgical History (Updated 06/02/19 @ 22:42 by Jc Staley) H/O colonoscopy (Chronic ~04/19/18) S/P appendectomy (Acute) S/P cholecystectomy (Acute) S/P tubal ligation (Acute) Status post carpal tunnel release of both wrists (Acute) Family History Mother , age 69 Heart disease Lung cancer Father No problems noted. Sister , age 58 Depression Hyperlipidemia Bone cancer Sister Depression Sister No problems noted. Brother Heart disease Social History Smoking/Tobacco Use Status: Never Alcohol Intake: never Drug use: Never Substance use type: does not use Caregiver/Support person: No Household members: none Housing: apartment Number of Children: 2 Communication Needs: None Pets and animals: Yes Pets and animals: cat(s) Sexually active: Yes Do you think of yourself as: straight/heterosexual Current gender identity: male What is your relationship status?: How often do you talk on the phone with friends or family?: three or more times per week How often do you get together with friends or relatives?: twice per week How often do you attend sikhism or baptism services?: 1-3 times per year Do you belong to any clubs or organized social groups?: no Panel score (0-1 are the most socially isolated patients): 1 What type of physical activity do you participate in: walking Duration: 15-30 minutes/day Frequency: daily Lizzy/Hoahaoism: No preference Special lizzy needs: No Seatbelt use: always Drive intox or ride w/intox dedicated regional driver: No Do you feel safe at home: Yes Do you feel safe in your relationship?: Yes Meds Home Medications and Allergies Home Medications Medication Instructions Recorded Confirmed Type aspirin [Aspir-81] 81 mg PO DAILY #120 tablet. 09/15/16 06/02/19 Rx atorvastatin 20 mg PO HS #30 tab 09/15/16 06/02/19 Rx lisinopril 20 mg PO DAILY #30 tab 09/15/16 06/02/19 Rx omeprazole 20 mg PO DAILY tab-cap 01/26/17 06/02/19 History acetaminophen [Mapap Extra 1,000 mg PO PRN PRN 05/24/17 06/02/19 History Strength] ibuprofen [Ibuprofen IB] 600 mg PO QID PRN 08/07/18 06/02/19 History amlodipine 2.5 mg tablet 2.5 mg PO DAILY 01/14/19 06/02/19 History fluoxetine 20 mg capsule 40 mg PO DAILY cap 01/14/19 06/02/19 History gabapentin 300 mg capsule 300 mg PO TID tab-cap 01/14/19 06/02/19 History magnesium oxide 400 mg PO DAILY 01/14/19 06/02/19 History meloxicam 15 mg tablet 15 mg PO DAILY 01/14/19 06/02/19 History nitroglycerin 0.4 mg sublingual 0.4 mg SL Q5-15M PRN 01/14/19 06/02/19 History tablet topiramate 25 mg tablet 25 mg PO QHS #30 tab 03/23/19 06/02/19 Rx Allergies Allergy/AdvReac Type Severity Reaction Status Date / Time phenytoin [From Dilantin] Allergy Mild Skin Rash Unverified 06/02/19 09:40 trazodone Allergy Mild Verified 06/02/19 09:40 clonidine AdvReac Mild Other (See Unverified 06/02/19 09:40 Comment) tramadol AdvReac Mild Nausea Unverified 06/02/19 09:40 Exam Narrative Exam Narrative: Pleasant middle-aged female in no acute distress alert and oriented person place time and circumstance lying in bed watching TV. HEENT unremarkable. Neck supple nontender with no JVD normal carotid pulses no thyromegaly. Lungs are clear to auscultation. Heart is bradycardic at a rate of 48 bpm with no murmur rub or gallop. Abdomen is soft and nontender with normal active bowel sounds no palpable masses no bruits. Extremities without peripheral cyanosis or edema. Neuro exam nonfocal with no gross motor or sensory deficits. Genitalia rectal exam deferred. Results Imaging EKG: image reviewed Labs Result diagrams: 06/02/19 13:40 06/02/19 13:40 Labs: Laboratory Results - last 24 hr 06/02/19 06/02/19 06/02/19 13:00 13:40 13:40 WBC 7.57 RBC 4.67 Hgb 13.4 Hct 40.5 MCV 86.7 MCH 28.7 MCHC 33.1 RDW 13.4 Plt Count 325 MPV 9.7 Immature Gran % 0.3 Neutrophils % 55.6 Lymphocytes % 30.6 Monocytes % 10.2 Eosinophils % 3.0 Basophils % 0.3 Absolute Neutrophils 4.21 Absolute Lymphocytes 2.32 Absolute Monocytes 0.77 H Absolute Eosinophils 0.23 Absolute Basophils 0.02 Sodium 143 Potassium 3.8 Chloride 105 Carbon Dioxide 26.0 Anion Gap 12.0 H BUN 12 Creatinine 0.88 Estimated GFR/1.73 m2 >= 60.00 Glucose 97 Calcium 8.7 Total Bilirubin 0.3 AST 16 ALT 29 Alkaline Phosphatase 104 Troponin I < 0.05 Total Protein 7.3 Albumin 4.1 Lipase 164 Urine Color Yellow Urine Clarity Clear Urine pH 7.0 Ur Specific [place] 1.020 Urine Protein Negative Urine Ketones Negative Urine Blood Trace-intact H Urine Nitrite Negative Urine Bilirubin Negative Urine Urobilinogen 1.0 H Ur Leukocyte Esterase Negative Urine RBC 0-2 Urine WBC Negative Ur Epithelial Cells Negative Urine Crystals Negative Urine Bacteria Few Urine Casts Negative Urine Mucus Negative Urine Other Negative Ur Culture Indicated? No Urine Glucose Negative Urine HCG, Qual Negative 06/02/19 16:50 WBC RBC Hgb Hct MCV MCH MCHC RDW Plt Count MPV Immature Gran % Neutrophils % Lymphocytes % Monocytes % Eosinophils % Basophils % Absolute Neutrophils Absolute Lymphocytes Absolute Monocytes Absolute Eosinophils Absolute Basophils Sodium Potassium Chloride Carbon Dioxide Anion Gap BUN Creatinine Estimated GFR/1.73 m2 Glucose Calcium Total Bilirubin AST ALT Alkaline Phosphatase Troponin I < 0.05 Total Protein Albumin Lipase Urine Color Urine Clarity Urine pH Ur Specific [place] Urine Protein Urine Ketones Urine Blood Urine Nitrite Urine Bilirubin Urine Urobilinogen Ur Leukocyte Esterase Urine RBC Urine WBC Ur Epithelial Cells Urine Crystals Urine Bacteria Urine Casts Urine Mucus Urine Other Ur Culture Indicated? Urine Glucose Urine HCG, Qual Last Vital Signs Temp 37.8 C H 06/02/19 18:27 Pulse 53 L 06/02/19 18:27 Resp 16 06/02/19 18:27 BP 132/73 06/02/19 18:27 Pulse Ox 96 06/02/19 18:27
[2019-06-02 22:09] LABS: Troponin I < 0.05 ng/Ml (<0.06)
[2019-06-02] MEDS: Topiramate 25 MG TAB PO (22:30)
[2019-06-02] MEDS: Atorvastatin 20 MG TAB PO (22:30)
[2019-06-02] MEDS: Normal Saline Flush 10 ML SYR IVP (22:31)
[2019-06-03 00:28] VITALS: BP 110/69; PULSE 54; RESP 18; TEMP 36.7; O2SAT 95
[2019-06-03] MEDS: Acetaminophen 325 MG TAB PO ×2 (02:56→08:55)
[2019-06-03 03:20] VITALS: BP 128/78; PULSE 46; RESP 18; TEMP 36.8; O2SAT 97
[2019-06-03 07:50] VITALS: BP 122/73; PULSE 46; RESP 18; TEMP 37; O2SAT 96
[2019-06-03 07:51] LABS: Calculated LDL 95 mg/dL (<100); Cholesterol 153 mg/dL (<200); HDL Cholesterol 35 mg/dL (40-60); Triglyceride 116 mg/dL (<150)
[2019-06-03] MEDS: Aspirin E.C. 81 MG TABEC PO (08:21)
[2019-06-03] MEDS: FLUoxetine 20 MG CAP 40 MG PO (08:21)
[2019-06-03] MEDS: Omeprazole 20 MG CAPCR PO (08:22)
[2019-06-03] MEDS: Magnesium Oxide 400 MG TAB PO (08:22)
[2019-06-03] MEDS: Lisinopril 20 MG TAB PO (08:22)
[2019-06-03] MEDS: amLODIPine 2.5 MG TAB PO (08:22)
[2019-06-03] MEDS: Gabapentin 300 MG CAP PO (08:22)
--- NOTE | 2019-06-03 10:55 | W.PM.DS.N ---
Date of service: 06/03/19 Time of Service: 10:56 DS: Diagnosis Discharge Diagnosis (1) Chest pain: Start date: 06/03/19 Start time: 10:56 Status: Acute Asessment and Plan: Does not appear ischemic. Resolved. Would recommend outpatient stress test due to family history. Also recommend follow up with GI as this could be a component of esophegeal spasm. She suffers severe GERD. Discharge Plan Disposition Patient Disposition: HOME Condition: Good Discharge Details Chief Complaint: Chest Pain Clinical Impression: Chest pain Reason For Visit: CHEST PAIN Admit Date/Time: 06/02/19 17:42 Admit Provider: Jc Staley Attending Provider: Jc Staley Primary Care Provider: Cheryle Perdomo ED Provider: Julius Galindo Hospital Course Hospital Course: 54 y.o female admitted from [facility] for chest pain. PMH of HLD, HTN, and GERD. CP resolved in ED yesterday with two doses of nitro. Overnight telemetry revealing SB 40-50's. Serial troponins negative. EKG x 2 normal in the ED CTA in ED normal. At this time she is appropriate for outpatient stress test. She feels well enough to go home. She is being discharged home. She denies CP, SOB N/V/D. Home Meds and New Rx's Prescriptions: Continued omeprazole 20 MG capsule,delayed release(DR/EC) 20 mg PO DAILY RF: 0 meloxicam 15 mg tablet 15 mg PO DAILY RF: 0 fluoxetine [Prozac] 20 mg capsule 40 mg PO DAILY RF: 0 magnesium oxide 400 mg magnesium capsule 400 mg PO DAILY RF: 0 nitroglycerin [Nitrostat] 0.4 mg tablet, sublingual 0.4 mg SL Q5-15M PRNRF: 0 amlodipine 2.5 mg tablet 2.5 mg PO DAILY RF: 0 gabapentin 300 mg capsule 300 mg PO TID RF: 0 topiramate [Topamax] 25 mg tablet 25 mg PO QHS Qty: 30 RF: 5 aspirin [Aspir-81] 81 MG tablet,delayed release (DR/EC) 81 mg PO DAILY Qty: 120 RF: 0 lisinopril 20 MG tablet 20 mg PO DAILY Qty: 30 RF: 1 atorvastatin 20 MG tablet 20 mg PO HS Qty: 30 RF: 1 ibuprofen [Ibuprofen IB] 200 mg Tablet 600 mg PO QID PRNRF: 0 acetaminophen [Mapap Extra Strength] 500 MG tablet 1,000 mg PO PRN PRNRF: 0 Discharge Instructions Instructions: Chest Pain (DC), Esophageal Spasm (GEN) Additional Instructions: Follow up with PCP as scheduled Follow up with outpatient nuclear for stress test. Activity:: Activity as Tolerated Equipment/Supplies:: No Equipment Needed Diet:: As Tolerated Discharge Orders Discharge Orders: Discharge Order (Routine); Ordered 06/03/19 Ordered By: Juju Maldonado Other Ambulatory Orders: Nuclear Medicine Stress Test (Outpt) (ONCE) Timeframe: [id number] Location: None Selected Ordered By: Juju Maldonado DS: Summary Status at Discharge Functional status at discharge: independent ambulation Overall status at discharge: patient is back to baseline Mental Status: mental status grossly normal Speech and Movement: speech and movement normal Mood: congruent mood Affect: normal affect Exam Narrative Exam Narrative: Pleasant middle-aged female in no acute distress alert and oriented person place time, sitting up in bed. HEENT unremarkable. Neck supple nontender with no JVD normal carotid pulses no thyromegaly. Lungs are clear to auscultation. Heart is bradycardic at a rate of 48 bpm with no murmur rub or gallop. Abdomen is soft and nontender with normal active bowel sounds no palpable masses no bruits. Extremities without peripheral cyanosis or edema. Neuro exam nonfocal with no gross motor or sensory deficits. Genitalia rectal exam deferred. Psych Mental Status: mental status grossly normal Speech and Movement: speech and movement normal Mood: congruent mood Affect: normal affect DS: Data Vitals/I&O Vitals and I&O: Vital Signs Temperature 37 C 06/03/19 07:50 Temperature Source Tympanic 06/03/19 07:50 Pulse 46 L 06/03/19 07:50 Pulse Rhythm Regular 06/03/19 09:00 Respiratory Rate 18 06/03/19 07:50 Respiratory Effort Non-Labored 06/03/19 09:00 Respiratory Depth Normal 06/03/19 09:00 Respiratory Pattern Normal 06/03/19 09:00 Blood Pressure 122/73 06/03/19 07:50 Blood Pressure Position Sitting 06/02/19 12:25 Pulse Oximetry 96 06/03/19 07:50 Oxygen Delivery Method Room Air 06/03/19 07:50 Oxygen Flow Rate 0 06/03/19 07:50 Pain Level 3 06/03/19 08:55 Comment 06/02/19 12:25 Intake & Output 06/02/19 06/02/19 06/03/19 11:59 23:59 11:59 Intake Total 660 / 660 1480 / 1480 Output Total 1700 / 1700 Balance 660 / 660 -220 / -220 Weight 73.028 kg 72.4 kg Intake: IV 10 10 1000 / 1000 Oral 650 / 650 480 / 480 Output: Urine 1700 / 1700 Other: Urine Color Yellow Urine Appearance Clear Urine Odor Normal Voiding Methods Toilet Data Completed and Pending Completed studies during hospitalization [Text1]: Exam(s) a CT:CT thorax & abd/pel CTA EXAM: CT THORAX ABD/PEL CTA CLINICAL HISTORY: chest pain and midline lower abd pain radia 2 back TECHNIQUE: COMPARISON: No exams were available for comparison FINDINGS: CT angiography of chest pelvis was bolus infusion of cc of Omnipaque 350. The lungs are clear and well expanded. No mediastinal or hilar adenopathy. No thoracic aortic aneurysm or dissection. No pulmonary embolus. No pleural effusion or pneumothorax. There may be mild hepatic steatosis. Prior cholecystectomy and probable prior appendectomy noted. Spleen and pancreas appear normal. No biliary dilatation. Kidneys are unremarkable with incidental small renal cysts bilaterally. Adrenals are normal. Abdominal aorta is of normal diameter and no major vascular abnormality is seen involving branches of the abdominal aorta. No abdominal or pelvic adenopathy. No focal bowel pathology. No significant abdominal wall hernia. No gross erosive or destructive lesion seen involving the bones. There are changes of vacuum disc phenomenon at L2-3 consistent with disc degeneration with associated endplate sclerosis and prominent endplate hypertrophic changes, all consistent with degenerative change.. IMPRESSION: Negative CT angiography chest abdomen pelvis Labs on day of discharge: Labs from last 24 hours 06/03/19 06/02/19 06/02/19 06:45 21:40 16:50 WBC RBC Hgb Hct MCV MCH MCHC RDW Plt Count MPV Immature Gran % Neutrophils % Lymphocytes % Monocytes % Eosinophils % Basophils % Absolute Neutrophils Absolute Lymphocytes Absolute Monocytes Absolute Eosinophils Absolute Basophils Sodium Potassium Chloride Carbon Dioxide Anion Gap BUN Creatinine Estimated GFR/1.73 m2 Glucose Calcium Total Bilirubin AST ALT Alkaline Phosphatase Troponin I < 0.05 < 0.05 Total Protein Albumin Triglycerides 116 Total Cholesterol 153 LDL Cholesterol, Calc 95 HDL Cholesterol 35 L Lipase Urine Color Urine Clarity Urine pH Ur Specific [place] Urine Protein Urine Ketones Urine Blood Urine Nitrite Urine Bilirubin Urine Urobilinogen Ur Leukocyte Esterase Urine RBC Urine WBC Ur Epithelial Cells Urine Crystals Urine Bacteria Urine Casts Urine Mucus Urine Other Ur Culture Indicated? Urine Glucose Urine HCG, Qual 06/02/19 06/02/19 06/02/19 13:40 13:40 13:00 WBC 7.57 RBC 4.67 Hgb 13.4 Hct 40.5 MCV 86.7 MCH 28.7 MCHC 33.1 RDW 13.4 Plt Count 325 MPV 9.7 Immature Gran % 0.3 Neutrophils % 55.6 Lymphocytes % 30.6 Monocytes % 10.2 Eosinophils % 3.0 Basophils % 0.3 Absolute Neutrophils 4.21 Absolute Lymphocytes 2.32 Absolute Monocytes 0.77 H Absolute Eosinophils 0.23 Absolute Basophils 0.02 Sodium 143 Potassium 3.8 Chloride 105 Carbon Dioxide 26.0 Anion Gap 12.0 H BUN 12 Creatinine 0.88 Estimated GFR/1.73 m2 >= 60.00 Glucose 97 Calcium 8.7 Total Bilirubin 0.3 AST 16 ALT 29 Alkaline Phosphatase 104 Troponin I < 0.05 Total Protein 7.3 Albumin 4.1 Triglycerides Total Cholesterol LDL Cholesterol, Calc HDL Cholesterol Lipase 164 Urine Color Yellow Urine Clarity Clear Urine pH 7.0 Ur Specific [place] 1.020 Urine Protein Negative Urine Ketones Negative Urine Blood Trace-intact H Urine Nitrite Negative Urine Bilirubin Negative Urine Urobilinogen 1.0 H Ur Leukocyte Esterase Negative Urine RBC 0-2 Urine WBC Negative Ur Epithelial Cells Negative Urine Crystals Negative Urine Bacteria Few Urine Casts Negative Urine Mucus Negative Urine Other Negative Ur Culture Indicated? No Urine Glucose Negative Urine HCG, Qual Negative PFSH Medical History Bradycardia (Acute) Colorectal polyps (Resolved ~04/19/18) Degeneration of lumbosacral intervertebral disc HTN (hypertension) Hyperlipidemia Knee pain (Acute) Low back pain Migraine headache without aura (Acute) Myofascial pain Otalgia of left ear (Acute) Prinzmetal angina (Acute) Sacroiliitis Spinal stenosis (Acute) Thoracic back pain (Acute) Varicose veins of left lower extremity (Acute) Surgical History H/O colonoscopy (Chronic ~04/19/18) S/P appendectomy (Acute) S/P cholecystectomy (Acute) S/P tubal ligation (Acute) Status post carpal tunnel release of both wrists (Acute) Family History Mother , age 69 Heart disease Lung cancer Father No problems noted. Sister , age 58 Depression Hyperlipidemia Bone cancer Sister Depression Sister No problems noted. Brother Heart disease Social History Smoking/Tobacco Use Status: Never Alcohol Intake: never Drug use: Never Substance use type: does not use Caregiver/Support person: No Household members: none Housing: apartment Number of Children: 2 Communication Needs: None Pets and animals: Yes Pets and animals: cat(s) Sexually active: Yes Do you think of yourself as: straight/heterosexual Current gender identity: male What is your relationship status?: How often do you talk on the phone with friends or family?: three or more times per week How often do you get together with friends or relatives?: twice per week How often do you attend sikhism or bahai services?: 1-3 times per year Do you belong to any clubs or organized social groups?: no Panel score (0-1 are the most socially isolated patients): 1 What type of physical activity do you participate in: walking Duration: 15-30 minutes/day Frequency: daily Lizzy/Hoahaoism: No preference Special lizzy needs: No Seatbelt use: always Drive intox or ride w/intox dedicated driver: No Do you feel safe at home: Yes Do you feel safe in your relationship?: Yes
[2019-06-03 11:10] VITALS: BP 127/73; PULSE 50; RESP 20; TEMP 37.1; O2SAT 95
--- NOTE | 2019-06-03 17:09 | INITIAL_ITS ---
- If Service Date Differs Date of service: 06/03/19 Time of Service: 17:09 Care Management Initial Assess REASON FOR HOSPITALIZATION:: Chest Pain PAST MEDICAL HISTORY/PAST SURGICAL HISTORY:: Medical History (Updated 06/02/19 @ 22:42 by Jc Staley). Bradycardia (Acute). Colorectal polyps (Resolved ~04/19/18). Degeneration of lumbosacral intervertebral disc. HTN (hypertension). Hyperlipidemia. Knee pain (Acute). Low back pain. Migraine headache without aura (Acute). Myofascial pain. Otalgia of left ear (Acute). Prinzmetal angina (Acute). Sacroiliitis. Spinal stenosis (Acute). Thoracic back pain (Acute). Varicose veins of left lower extremity (Acute). Surgical History (Updated 06/02/19 @ 22:42 by Jc Staley). H/O colonoscopy (Chronic ~04/19/18). S/P appendectomy (Acute). S/P cholecystectomy (Acute). S/P tubal ligation (Acute). Status post carpal tunnel release of both wrists (Acute) PREVIOUS FUNCTIONAL STATUS/SOCIAL/FAMILY SUPPORTS:: Lazara lives in [facility] in an apartment alone, and her boyfriend Finn lives in another apartment in her building. 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 She has two adult children, one who lives in [place], [place], and one who lives a couple hours away. Lazara uses [facility] transportation, but otherwise is independent at baseline. CURRENT FUNCTIONAL STATUS:: Lazara was sitting up in bed when CM met with her. Her boyfriend Finn was in the room. She reported that she will be going home soon, per MD. She also stated that she would have her MPI test as an outpatient. CM will continue to follow. ADVANCE DIRECTIVES:: None on file Has patient been provided with information about the portal?: Yes Did the patient sign up for the portal?: Yes (previously signed up) CODE STATUS:: Full Code INSURANCE COVERAGE / FINANCIAL ISSUES:: [employer] CURRENT HOME/COMMUNITY SERVICES/EQUIPMENT:: Lazara uses [facility]. PRIMARY CARE PHYSICIAN:: Cheryle Perdomo POTENTIAL DISCHARGE NEEDS:: Evaluations for further needs, follow up appointments PATIENT/FAMILY EDUCATION NEEDS:: Review discharge instructions regarding medications and activity levels, discussion of self care needs including ask me three ANTICIPATED BARRIERS TO DISCHARGE:: None identified at this time. TRANSPORTATION:: Lazara's boyfriend, Finn will drive her home via private vehicle. PLAN:: Anticipate Lazara will return home with no additional services once medically cleared. Her boyfriend, Finn will drive her home via private vehicle when ready. She will follow up with her PCP, and for her MPI outpatient, as recommended. CM will continue to follow.
--- NOTE | 2019-06-03 17:35 | PDOC.CMDIS ---
- If Service Date Differs Date of service: 06/03/19 Time of Service: 17:35 LACE Index Scoring Tool - Questions: Length of Stay (in days): 2 Acuity (Admit via E.D.?): Yes E.D. Visits: 4 - Answers: Total Score: 9 Risk of Readmission: Low Risk Care Management Discharge Reason for Hospitalization: Chest Pain Discharge Plan: Lazara will return home with no additional services at this time. Her boyfriend will drive her home via private vehicle. She will follow up with her PCP, and for her outpatient MPI test, as recommended. She is agreeable to the plan. Patient/Family Education Needs: Review discharge instructions regarding activity levels and medications, discussion of self care needs including ask me three
== END 2019-06-03 12:18 | disposition home or self-care (01) ==
LOC: ER 17:58 → MS 18:17
PROVIDERS: Admitting Provider Internal Medicine; Emergency Provider Student in an Organized Health Care Education/Training Program; PCP Nurse Practitioner; Visit Provider Internal Medicine
DX: R07.9 Chest pain, unspecified (principal); E78.5 Hyperlipidemia, unspecified; I10 Essential (primary) hypertension; K21.9 Gastro-esophageal reflux disease without esophagitis; F32.9 Major depressive disorder, single episode, unspecified
CPT/HCPCS: 36415; 74177; 80053; 80061; 83690; 93005; 99219; 99239; 99285; J1650; 81003; 81015; 81025; 84484; 85025; 93010; 99217; G0378; J3490

== ENCOUNTER 2019-06-20 01:18 | Outpatient (CLI) | payer MEDICAID, SELFPAY ==
--- NOTE | 2019-06-20 | DI.NM_ITS ---
APPROVED REPORT Exam: Exercise Treadmill Patient Location: Out-Patient Room/Bed: Stress Nurse: Steph Mckeon RN BMI: 25.82 Baseline Rhythm: Sinus Bradycardia Indications: Chest pain. Bradycardia. Medical History Medical History: Angina, Depression, HTN, Hyperlipidemia, GERD Cardiac Medications: Lisinopril. Amlodipine. Aspirin. Omeprazole. Atorvastatin., Allergies: Dilantin. Tramadol. Clonidine. Trazadone. Cardiac Risk Factors: HTN, Hyperlipidemia, FHX of CAD Pretest Chest Pain Characteristics: Non-exertional Chest pain Exercise History: Physically active Physical Disabilities: Back Lung Sounds: Clear to auscultation Heart Sounds: Bradycardia Stress Test Details Test: Exercise stress testing was performed using a Michael protocol. Nuclear Acquisition: Rest Tc-99m/Stress Tc-99m 1 day Rest Isotope: Tc-99m Sestamibi. Dose: 11.0 Date: 06/20/2019 Injection Time: 0930 Stress Isotope: Tc-99m Sestamibi. Dose: 37.0 Date: 06/20/2019 Injection Time: 1050 HR Resting HR Supine: 43 bpm Max Heart Rate (APMHR): 167 bpm Target HR (85% APMHR): 141 bpm Max HR Achieved: 150 bpm % of APMHR: 89 Recovery HR: 62 bpm HR response to stress: Normal HR response to stress BP Resting BP Supine: 140/80 mmHg Resting BP Standin/76 mmHg Max BP: 150/86 mmHg Recovery BP: 138/72 mmHg BP response to stress: Blunted blood pressure response to stress. ECG Resting ECG: Sinus Bradycardia Stress ECG: Sinus Tachycardia ST Change: No significant ST segment changes Arrhythmia: None Recovery ECG: Sinus Rhythm Recovery ST Change: No siginificant ST segment changes Recovery Arrhythmia: None Clinical Reason for Termination: Fatigue Stress Symptoms: General Fatigue Exercise duration: 6 min00 sec Highest Stage Reached: Stage 2: 2.5 mph at 12% grade. Exercise capacity: 7.05 METs Functional Capacity: Average Capacity Stress ECG Conclusion 1. Patient exercised on the Michael protocol and completed stage II, a workload of 7 METS. She achieve d 89% of predicted heart rate for age 2. She had no symptoms to suggest angina 3. Electrocardiographically there was no evidence of myocardial ischemia with exercise Protocol Used: Michael Protocol Stress Test Summary STAGE Time (mins) Speed (mph) Grade (%) HR BP SYMPTOMS METS Supine 43 140/80 Standing 49 138/76 1 3 1.7 10 107 148/86 4.6 2 6 2.5 12 150 150/86 7 3 9 3.4 14 10.2 4 12 4.2 16 12.9 5 15 5.0 18 17.2 1 min recovery 133 146/80 3 min recovery 62 144/72 6 min recovery 65 138/72 MPI Conclusion No evidence of myocardial ischemia or prior infarction. EF 58%
== END 2019-06-20 01:38 ==
PROVIDERS: PCP Nurse Practitioner; Visit Provider Nurse Practitioner Family
DX: R07.9 Chest pain, unspecified (principal); R00.1 Bradycardia, unspecified; I10 Essential (primary) hypertension; E78.5 Hyperlipidemia, unspecified; K21.9 Gastro-esophageal reflux disease without esophagitis; F32.9 Major depressive disorder, single episode, unspecified
CPT/HCPCS: 78452; 93017

== ENCOUNTER → 2019-12-12 14:32 | Outpatient (BNVA) | payer MEDICARE, MEDICAID, SELFPAY | PROVIDERS: PCP Nurse Practitioner; Referring Provider Nurse Practitioner; Visit Provider Nurse Practitioner Adult Health | DX: G43.009 Migraine without aura, not intractable, without status migrainosus (principal) | CPT/HCPCS: 99213 ==

== ENCOUNTER 2019-12-19 10:48 | Outpatient (CLI) | payer MEDICARE, MEDICAID, SELFPAY ==
--- NOTE | 2019-12-19 13:00 | DI.RAD_ITS ---
EXAM: XR KNEE RT 3V AP,LAT,MANSI CLINICAL HISTORY: pain medial joint, right knee, x 2 months, M25.561. TECHNIQUE: 2D digital imaging was performed. COMPARISON: No exams were available for comparison FINDINGS: BONES: No acute fracture is present. No bony destructive lesion is seen. JOINTS: The knee is normally aligned. No joint effusion is seen. Minimal periarticular spurring. SOFT TISSUE: Normal. IMPRESSION: Mild degenerative changes. DATA REPOSITORY: RADIATION DOSE DELIVERED:
== END 2019-12-19 11:08 ==
PROVIDERS: PCP Nurse Practitioner; Visit Provider Physician Assistant
DX: M17.11 Unilateral primary osteoarthritis, right knee (principal); M25.561 Pain in right knee
CPT/HCPCS: 73562

== ENCOUNTER → 2020-01-10 10:29 | Outpatient (BNVA) | payer MEDICARE, MEDICAID, SELFPAY | PROVIDERS: PCP Nurse Practitioner; Referring Provider Nurse Practitioner; Visit Provider Orthopaedic Surgery | DX: M25.561 Pain in right knee (principal); M70.51 Other bursitis of knee, right knee; M23.91 Unspecified internal derangement of right knee; I10 Essential (primary) hypertension | CPT/HCPCS: 99203; 99214 ==

== ENCOUNTER 2020-02-06 09:39 | Emergency (ER) | payer MEDICARE, MEDICAID, SELFPAY ==
[2020-02-06] VITALS (35 sets, daily range): BP systolic 109–137; BP diastolic 55–71; PULSE 46–78; RESP 12–24; TEMP 36.2–36.8; O2SAT 95–99
--- NOTE | 2020-02-06 09:30 | RT.EKG_ITS ---
APPROVED REPORT Exam: Resting ECG Patient Location: E HR:56 bpm ECG Measurements Heart Rate 56 AXIS OH 159 P 45 QRSd 96 QRS -35 QT 444 T 38 QTc 430 Conclusion Sinus bradycardia...rate< 60 sinus bradycardia at 56, left axis, non-specific ST changes and PRWP present on prior, non-diagnostic EKG
--- NOTE | 2020-02-06 09:40 | ED.GENADUL_ITS ---
Discharge Plan Disposition Patient Disposition: HOME Condition: Stable Discharge Details Clinical Impression: Chest pain, Hypokalemia Primary Care Provider: Cheryle Perdomo ED Provider: Gisela Jarvis Home Meds and New Rx's Prescriptions: Continued topiramate [Topamax] 50 mg tablet 50 mg PO QHS Qty: 30 RF: 2 prochlorperazine maleate 5 mg tablet See Rx Instructions PO TID PRN (Reason: nausea and vomiting) Qty: 30 RF: 2 amlodipine 2.5 mg tablet 2.5 mg PO DAILY Qty: 90 RF: 4 atorvastatin 20 mg tablet 20 mg PO HS Qty: 90 RF: 4 lisinopril 5 mg tablet 5 mg PO DAILY Qty: 90 RF: 4 magnesium oxide 400 mg magnesium capsule 400 mg PO DAILY RF: 0 nitroglycerin [Nitrostat] 0.4 mg tablet, sublingual 0.4 mg SL Q5-15M PRNRF: 0 gabapentin 300 mg capsule 300 mg PO TID Qty: 240 RF: 4 omeprazole 20 mg capsule,delayed release(DR/EC) 20 mg PO DAILY Qty: 90 RF: 3 fluoxetine 40 mg capsule 40 mg PO DAILY Qty: 90 RF: 3 aspirin [Aspir-81] 81 mg tablet,delayed release (DR/EC) 81 mg PO DAILY Qty: 120 RF: 3 ibuprofen [Ibuprofen IB] 200 mg Tablet 600 mg PO QID PRNRF: 0 acetaminophen [Mapap Extra Strength] 500 MG tablet 1,000 mg PO PRN PRNRF: 0 Discharge Instructions Instructions: Chest Pain (ED), Hypokalemia (ED) Additional Instructions: Please encourage water intake. Your labs and imaging are reassuring here today. However, I do feel that you need close follow-up with your outside salesman as well as repeat stress test. Please call to schedule follow-up appointment. I have also asked her care management team to help facilitate this appointment. If you develop fever/chills, increased pain, shortness of breath or other new/worsening symptoms please seek care urgently once again. Referrals: Cheryle Perdomo, DIVORCE MEDIATOR [Primary Care Provider] - Beny Toledo [ [facility] STAFF PHYSICIAN] - Discharge Data Discharge Date/Time-TO BE ENTERED AT DEPARTURE: 02/06/20 14:53 Medical Decision Making Patient is a pleasant 55-year-old female with past medical history pertinent for hypertension, hyperlipidemia, migraine, Prinzmetal angina. She is presenting today with chief complaint of chest pain. She reports that this weekend she was laying low secondary to a migraine. She reports that yesterday while lying around she began having some centralized chest discomfort. She reports that the chest discomfort has persisted. Denies any exacerbating factors, has not taken anything to help with her discomfort. She states that she awoke this morning with pain rating into the left shoulder and down the left arm. She denies any shortness of breath. No nausea. Denies any pain in the back. States that her migraine has been improving. Also noted her blood pressure be elevated at 150 which is unusual for her. Patient reports she took her medications this morning including metoprolol and baby aspirin. Exam reveals comfortable appearing, nontoxic female. Normal cardiac exam. No lower extremity edema. 2+ distal pulses in all extremities. Lungs are clear to auscultation. Concern for ACS. Patient's mother had TN at 50. Will give sublingual nitro, augment her aspirin, obtain baseline labs. EKG was reviewed by Dr. Galindo. Patient does have some abnormal T waves but this is unchanged from previous with no acute ischemic changes noted. Patient is bradycardic with a rate in the 50s but she did take her metoprolol this morning. Patient had a stress test in 2018. At that time overall impression was a normal study after maximal exercise. Patient reports that her chest pain is improving and is now down from 6 to a 4. However, her headache did get worse. Will give morphine to help with the persistent discomfort. Patient did drop her pressure to 109. Reassessed the patient. She reports her pain is much improved. Headache is now gone. I reviewed the chest x-ray did not appreciate any acute abnormalities, waiting for read from radiologist. Labs reviewed. No leukocytosis. Stable H&H. Potassium slightly low at 3.3, will replenish this orally here. Anion gap elevated 12.3, she is receiving fluids while here. Initial troponin is less than 0.05. Discussed these findings with the patient. We will continue to monitor. If symptoms worsen this morning I do feel that repeat troponin would be appropriate. Repeat troponin is less than 0.05. Repeat EKG unchanged. Patient continues to be asymptomatic since the initial intervention. Her symptoms are nonexertional. They are somewhat atypical. However, with her family history I am concerned for true anginal pain. I do feel that the patient would benefit from stress testing. She and I discussed inpatient versus outpatient management and she would prefer discharge home at this time. She does have a outside salesman in [place]. I have asked our care management team to help arrange for follow-up with them as well as outpatient stress test. Patient was given very strict return precautions. She lives locally. She does have nitro and I encouraged her to use this if her symptoms return. All of her questions and concerns were addressed and she is in agreement this plan. HPI General Mode of arrival: ambulatory . Date/Time Provider Initiated Documentation: 02/06/20 09:40 . Limitations to Documentation: no limitations . Information obtained by: patient, RN notes reviewed and old records reviewed . History of Present Illness 55 year old F presents to the emergency department with the chief complaint of chest pain, described as moderate, with intensity rated at 6. Quality is described as aching, and is localized to the chest. Patient extremity (left shoulder and down left arm). Patient started experiencing this day(s) (1) and it has been constant. No relieving factors improve symptom(s), No exacerbating factors reported . Patient notes chest pain and headaches (reports migraine over sara weekend, now improving); denies cough, diaphoresis, fever/chills, loss of appetite, nausea/vomiting, rash, shortness of breath and weakness. Patient did receive the following treatments prior to arrival, none Related Data Home Medications Medication Instructions Recorded Confirmed acetaminophen [Mapap Extra 1,000 mg PO PRN PRN 05/24/17 02/06/20 Strength] ibuprofen [Ibuprofen IB] 600 mg PO QID PRN 08/07/18 02/06/20 magnesium oxide 400 mg PO DAILY 01/14/19 02/06/20 nitroglycerin 0.4 mg sublingual 0.4 mg SL Q5-15M PRN 01/14/19 02/06/20 tablet gabapentin 300 mg capsule 300 mg PO TID #240 tab-cap 07/14/19 02/06/20 omeprazole 20 mg capsule,delayed 20 mg PO DAILY #90 tab-cap 07/26/19 02/06/20 release fluoxetine 40 mg capsule 40 mg PO DAILY #90 cap 09/07/19 02/06/20 amlodipine 2.5 mg tablet 2.5 mg PO DAILY #90 tab 10/04/19 02/06/20 atorvastatin 20 mg tablet 20 mg PO HS #90 tab 10/04/19 02/06/20 lisinopril 5 mg tablet 5 mg PO DAILY #90 tab 10/04/19 02/06/20 aspirin 81 mg tablet,delayed 81 mg PO DAILY #120 tablet. 11/29/19 02/06/20 release prochlorperazine maleate 5 mg See Rx Instructions PO TID PRN #30 12/12/19 02/06/20 tablet tab topiramate 50 mg tablet 50 mg PO QHS #30 tab 12/12/19 02/06/20 Previous Rx's Medication Instructions Recorded gabapentin 300 mg capsule 300 mg PO TID #240 tab-cap 07/14/19 omeprazole 20 mg capsule,delayed 20 mg PO DAILY #90 tab-cap 07/26/19 release fluoxetine 40 mg capsule 40 mg PO DAILY #90 cap 09/07/19 amlodipine 2.5 mg tablet 2.5 mg PO DAILY #90 tab 10/04/19 atorvastatin 20 mg tablet 20 mg PO HS #90 tab 10/04/19 lisinopril 5 mg tablet 5 mg PO DAILY #90 tab 10/04/19 aspirin 81 mg tablet,delayed 81 mg PO DAILY #120 tablet. 11/29/19 release prochlorperazine maleate 5 mg See Rx Instructions PO TID PRN #30 12/12/19 tablet tab topiramate 50 mg tablet 50 mg PO QHS #30 tab 12/12/19 Allergies Allergy/AdvReac Type Severity Reaction Status Date / Time phenytoin [From Dilantin] Allergy Mild Skin Rash Unverified 02/06/20 09:50 trazodone Allergy Mild Verified 02/06/20 09:50 clonidine AdvReac Mild Other (See Unverified 02/06/20 09:50 Comment) tramadol AdvReac Mild Nausea Unverified 02/06/20 09:50 General ARCELIA: 3 Review of Systems Constitutional Constitutional: Reports as per HPI, Denies chills, Denies fever(s), Reports headache(s), Denies lethargy and Denies poor appetite Eyes Eyes: Denies change in vision ENT Ears, Nose, Mouth, and Throat: Denies dizziness and Reports headache(s) Cardiovascular Cardiovascular: Reports as per HPI, Denies dyspnea and Denies dyspnea on exertion Respiratory Respiratory: Reports as per HPI, Denies chest congestion, Denies cough, Denies pain on inspiration, Denies pain with cough, Denies dyspnea, Denies dyspnea on exertion and Denies wheezing Gastrointestinal Gastrointestinal: Reports as per HPI, Denies abdominal pain, Denies diarrhea, Denies nausea and Denies vomiting Musculoskeletal Musculoskeletal: Reports as per HPI and Denies back pain Integumentary/Breasts Skin/Breast: Reports as per HPI and Denies rash Neurologic Neurologic: Reports as per HPI, Denies dizziness and Reports headache(s) Allergic/Immunologic Allergic/Immunologic: Denies wheezing [facility] [place] Medical History Bradycardia Colonoscopy planned Overdue for screening colonoscopy - 51 yrs old at 01/16/2016, no record of colo. Scheduled for screening colo 04/19/18 (consult 04/01/18) Colorectal polyps (~04/19/18) Degeneration of lumbosacral intervertebral disc Fatigue HTN (hypertension) Hyperlipidemia Internal derangement of right knee Knee pain Low back pain Migraine headache without aura Myofascial pain Otalgia of left ear Pes anserine bursitis Prinzmetal angina Sacroiliitis Spinal stenosis Thoracic back pain Varicose veins of left lower extremity Surgical History H/O colonoscopy (~04/19/18) S/P appendectomy S/P cholecystectomy S/P tubal ligation Status post carpal tunnel release of both wrists Family History Mother , age 69 Heart disease Lung cancer Father No problems noted. Sister , age 58 Depression Hyperlipidemia Bone cancer Sister Depression Sister No problems noted. Brother Heart disease Daughter Asthma Daughter No problems noted. Social History Smoking/Tobacco Use Status: Never Second Hand Exposure: No Alcohol Intake: former Drug use: Never Substance use type: does not use Caregiver/Support person: No Household members: none Housing: apartment Number of Children: 2 Communication Needs: None Pets and animals: Yes Pets and animals: cat(s) Sexually active: Yes Do you think of yourself as: straight/heterosexual Current gender identity: male What is your relationship status?: How often do you talk on the phone with friends or family?: three or more times per week How often do you get together with friends or relatives?: three or more times per week How often do you attend mosque or mandaeism services?: 1-3 times per year Do you belong to any clubs or organized social groups?: no Panel score (0-1 are the most socially isolated patients): 1 What type of physical activity do you participate in: walking Duration: < 15 minutes/day Frequency: 3-4 times per week Lizzy/Christianity: None Special lizzy needs: No Seatbelt use: always Helmet use: Yes Helmet use: always Drive intox or ride w/intox warehouse delivery driver: No Do you feel safe at home: Yes Do you feel safe in your relationship?: Yes Exam Const General: cooperative, healthy appearing, comfortable, no acute distress and well developed Nutritional Appearance: average body habitus and well nourished Orientation: alert, awake and oriented x3 HENMT Head: normal to inspection Ears: hearing grossly normal bilaterally Mouth: moist mucous membranes Chest Chest: normal inspection of the chest, normal palpation of entire chest wall and no crepitus Resp Effort & Inspection: normal respiratory effort, able to speak in complete sentences and no respiratory distress Auscultation: clear to auscultation bilaterally, no rales, no rhonchi and no wheezes Cardio Rate: regular rate Rhythm: regular rhythm Heart Sounds: S1 normal and S2 normal GI Inspection: normal to inspection, no edema and non-distended Palpation: soft, no hepatosplenomegaly, not firm, no guarding, not rigid and nontender Auscultation: normal bowel sounds Back/Spine/Pelvis Back: no CVA tenderness Thoracic/Lumbar Spine: thoracic and lumbar spine normal to inspection Skin General skin exam: no rashes or lesions noted Trauma: no lacerations or abrasions Neuro General: patient alert, patient awake and patient oriented x3 Cognition: normal cognition Speech: speech normal Gait: normal gait Extrem General: normal to inspection, capillary refill normal, no pedal edema, no calf tenderness and normal gait Psych Appearance: grossly normal and well kempt Mental Status: mental status grossly normal Speech and Movement: speech and movement normal
--- NOTE | 2020-02-06 09:45 | DI.RAD_ITS ---
EXAM: XR CHEST 2V PA LATERAL CLINICAL HISTORY: CP TECHNIQUE: 2D digital imaging was performed. COMPARISON: CR XR CHEST 2V PA LATERAL from 12/09/2018 FINDINGS: The heart is not enlarged. The lungs are clear and well expanded. No pleural effusion seen. Mediastin al contours appear intact. IMPRESSION: Normal chest RADIATION DOSE DELIVERED: Total DLP
[2020-02-06] MEDS: Aspirin 81 MG CHEW 243 MG CH (09:56)
[2020-02-06] MEDS: nitroGLYcerin 0.4 MG TAB SL (09:57)
[2020-02-06 10:34] LABS: Abs Immature Grans 0.01 10^3/uL (0.0-0.06); Absolute Basophil Count 0.04 10^3/uL (0.0-0.2); Absolute Eosinophil Count 0.24 10^3/uL (0.0-0.7); Absolute Lymphocyte Count 2.19 10^3/uL (1.2-3.4); Absolute Monocyte Count 0.52 10^3/uL (0.1-0.8); Absolute Neutrophil Count 3.23 10^3/uL (1.2-6.7); Basophils % 0.6; Eosinophils % 3.9; HCT 39.8 % (36.0-46.0); HGB 13.2 g/dL (11.2-15.7); Immature Grans % 0.2; Lymphocytes % 35.2; MCHC 33.2 % (32.0-36.0); MCV 87.5 fL (80-95); MPV 9.9 fL (8.0-11.0); Monocytes % 8.3; Neutrophils % 51.8; Nucleated RBC 0 %; Platelet Count 308 10^3/uL (130-400); RBC 4.55 10^6/uL (3.93-5.22); RDW 12.8 % (11.7-14.6); RDW-SD 40.6 fL; WBC 6.23 10^3/uL (4.4-10.8)
[2020-02-06 10:49] LABS: PTT Activated 22.7 sec (21.0-31.4); Prothrombin Time 10.1 sec (9.3-11.0)
[2020-02-06 10:57] LABS: ALT 53 U/L (14-59); AST 29 U/L (15-37); Alkaline Phosphatase 91 U/L (46-116); Anion Gap 12.3 mmol/L (3-11); BUN 9 mg/dL (7-18); Bilirubin, Total 0.7 mg/dL (0.2-1.0); CO2 23.7 mmol/L (21.0-32.0); CREATININE 0.95 mg/dL (0.55-1.02); Calcium 9.3 mg/dL (8.5-10.1); Chloride 104 mmol/L (98-107); Glucose 117 mg/dL (74-106); Potassium 3.3 mmol/L (3.5-5.1); Sodium 140 mmol/L (136-145); Total Protein 7.3 g/dL (6.4-8.2); Troponin I < 0.05 ng/mL (<0.06)
[2020-02-06] MEDS: Potassium Chloride 20 MEQ TABCR PO (11:14)
--- NOTE | 2020-02-06 12:45 | RT.EKG_ITS ---
APPROVED REPORT Exam: Resting ECG Patient Location: E HR:52 bpm ECG Measurements Heart Rate 52 AXIS RI 178 P 45 QRSd 91 QRS -29 QT 456 T -6 QTc 424 Conclusion Sinus bradycardia...rate< 60 Low voltage, precordial leads...precordial leads <1.0mV Nonspecific T abnormalities, anterior leads...T <-0.10mV, V2-V4 No STEMI, non-diagnostic EKG
[2020-02-06 13:19] LABS: Troponin I < 0.05 ng/mL (<0.06)
== END 2020-02-06 14:53 | disposition home or self-care (01) ==
PROVIDERS: Emergency Provider Physician Assistant; PCP Nurse Practitioner
DX: E87.6 Hypokalemia (principal); R07.9 Chest pain, unspecified; I10 Essential (primary) hypertension; I20.1 Angina pectoris with documented spasm
CPT/HCPCS: 36415; 80053; 93005; 96374; 99285; 71046; 83735; 84484; 85025; 85610; 85730; 93010

== ENCOUNTER → 2020-02-07 10:34 | Outpatient (BNVA) | payer MEDICARE, MEDICAID, SELFPAY | PROVIDERS: PCP Nurse Practitioner; Referring Provider Nurse Practitioner; Visit Provider Orthopaedic Surgery | DX: M70.51 Other bursitis of knee, right knee (principal); I10 Essential (primary) hypertension | CPT/HCPCS: 20610; 99213; J1030 ==

== ENCOUNTER 2020-02-18 11:50 | Observation (INO) | payer MEDICARE, MEDICAID, SELFPAY ==
[2020-02-18] VITALS (72 sets, daily range): BP systolic 96–154; BP diastolic 51–86; PULSE 46–75; RESP 12–28; TEMP 36.6–36.8; O2SAT 94–99
--- NOTE | 2020-02-18 11:45 | RT.EKG_ITS ---
APPROVED REPORT Exam: Resting ECG Patient Location: E HR:50 bpm ECG Measurements Heart Rate 50 AXIS HI 176 P 31 QRSd 99 QRS -30 QT 453 T 1 QTc 415 Conclusion Sinus bradycardia...rate< 60 no STEMI
[2020-02-18 12:18] LABS: Abs Immature Grans 0.02 10^3/uL (0.0-0.06); Absolute Basophil Count 0.05 10^3/uL (0.0-0.2); Absolute Eosinophil Count 0.22 10^3/uL (0.0-0.7); Absolute Lymphocyte Count 2.47 10^3/uL (1.2-3.4); Absolute Monocyte Count 0.83 10^3/uL (0.1-0.8); Absolute Neutrophil Count 4.49 10^3/uL (1.2-6.7); Basophils % 0.6; Eosinophils % 2.7; HCT 40.4 % (36.0-46.0); Immature Grans % 0.2; Lymphocytes % 30.6; MCH 28.3 pg (27.0-33.0); MCHC 32.2 % (32.0-36.0); MCV 87.8 fL (80-95); MPV 9.6 fL (8.0-11.0); Monocytes % 10.3; Neutrophils % 55.6; Nucleated RBC 0 %; Platelet Count 334 10^3/uL (130-400); RDW 12.8 % (11.7-14.6); RDW-SD 41.1 fL; WBC 8.08 10^3/uL (4.4-10.8)
--- NOTE | 2020-02-18 12:30 | DI.CT_ITS ---
EXAM: CT CHEST PE CTA CLINICAL HISTORY: chest pressure, dizzy, recent left calf pain. TECHNIQUE: Imaging Protocol: Axial CT angiography was performed with multi-slice acquisition and mu lti-planar and/or 3D reconstructions. CONTRAST MATERIAL: Intravenous: Omnipaque 350 Contrast volume:69 cc COMPARISON: CT CT THORAX ABD/PEL CTA from 06/02/2019 FINDINGS: Pulmonary Arteries: No evidence of filling defect to suggest pulmonary emboli. Tracheobronchial tree: Patent where visualized. Mediastinum and Cristine: No dominant adenopathy or fluid collection. Pulmonary parenchyma: Limited evaluation due to expiratory changes. No focal infiltrate Pleura: No effusion or pneumothorax. Heart: The heart is not dilated. No coronary artery calcifications are seen. Aorta: Thoracic aorta non-dilated. Upper abdomen: Unremarkable. Bones: Degenerative disc changes and Schmorl's nodes. Tubes, Catheters, and Lines: None IMPRESSION: No evidence of pulmonary embolism or other acute abnormality.. RADIATION DOSE DELIVERED: 441.75mGy.cm Total DLP DATA REPOSITORY: All CT scans at this facility are submitted to the National Radiology Data Registry (NRDR) Dose Index Registry (DIR) with the [employer] (ACR). RADIATION OPTIMIZATION: All CT scans at this facility use at least one of these dose optimization te chniques: automated exposure control; mA and/or kV adjustment per patient size (includes targeted exa ms where dose is matched to clinical indication); or iterative reconstruction.
[2020-02-18 12:33] LABS: ALT 32 U/L (14-59); AST 20 U/L (15-37); Albumin 4.1 g/dL (3.4-5.0); Alkaline Phosphatase 103 U/L (46-116); Anion Gap 9.1 mmol/L (3-11); BUN 10 mg/dL (7-18); Bilirubin, Total 0.6 mg/dL (0.2-1.0); CO2 23.9 mmol/L (21.0-32.0); CREATININE 0.89 mg/dL (0.55-1.02); Calcium 9.3 mg/dL (8.5-10.1); Chloride 104 mmol/L (98-107); Glucose 90 mg/dL (74-106); Potassium 3.5 mmol/L (3.5-5.1); Sodium 137 mmol/L (136-145); Total Protein 7.4 g/dL (6.4-8.2)
[2020-02-18 12:34] LABS: Troponin I < 0.05 ng/mL (<0.06)
--- NOTE | 2020-02-18 12:42 | W.ED.GENAD ---
Discharge Plan Disposition Patient Disposition: [facility] INPATIENT Condition: Serious Discharge Details Clinical Impression: Chest pain Primary Care Provider: Cheryle Perdomo ED Provider: Julius Galindo Home Meds and New Rx's Prescriptions: No Action topiramate [Topamax] 50 mg tablet 50 mg PO QHS Qty: 30 RF: 2 prochlorperazine maleate 5 mg tablet See Rx Instructions PO TID PRN (Reason: nausea and vomiting) Qty: 30 RF: 2 amlodipine 2.5 mg tablet 2.5 mg PO DAILY Qty: 90 RF: 4 atorvastatin 20 mg tablet 20 mg PO HS Qty: 90 RF: 4 lisinopril 5 mg tablet 5 mg PO DAILY Qty: 90 RF: 4 magnesium oxide 400 mg magnesium capsule 400 mg PO DAILY RF: 0 nitroglycerin [Nitrostat] 0.4 mg tablet, sublingual 0.4 mg SL Q5-15M PRNRF: 0 gabapentin 300 mg capsule 300 mg PO TID Qty: 240 RF: 4 omeprazole 20 mg capsule,delayed release(DR/EC) 20 mg PO DAILY Qty: 90 RF: 3 fluoxetine 40 mg capsule 40 mg PO DAILY Qty: 90 RF: 3 aspirin [Aspir-81] 81 mg tablet,delayed release (DR/EC) 81 mg PO DAILY Qty: 120 RF: 3 ibuprofen [Ibuprofen IB] 200 mg Tablet 600 mg PO QID PRNRF: 0 acetaminophen [Mapap Extra Strength] 500 MG tablet 1,000 mg PO PRN PRNRF: 0 Medical Decision Making 1258??55-year-old female with past medical history significant for hypertension, hypercholesterolemia, Prinzmetal angina, here with chest pain that is persistent over the past 1 to 2 hours, improved after single sublingual nitro, also with associated lightheadedness and diaphoresis. Concern for ACS. Screening ECG was reviewed and interpreted by me: Please see report, sinus bradycardia noted, no STEMI, no significant changes from prior ECG 02/06/2020. Plan to check troponin. Patient currently has low normal blood pressure. Patient received additional sublingual nitroglycerin after IV fluid bolus. Patient is saturating well in no respiratory distress but given dizziness and recent left calf pain, consider acute pulmonary embolism. Will obtain CT of the chest. --Patient reassessed: BP improved after light IV fluid bolus, patient given sublingual nitro and pain did improve from 4/10 to 2/10. Initial labs reviewed and nondiagnostic. Initial troponin negative. 1517 --repeat ECG was reviewed and interpreted by me: There are subtle dynamic changes noted in V2 V3 where T wave inversion seems more apparent. Plan to start nitroglycerin infusion and heparin infusion. Delta troponin pending. -- CT chest interpreted by radiology: IMPRESSION: 1. No pulmonary embolism or aortic dissection. 2. Interval increase in prominence of interstitial thickening with prominent interstitial vessels and patchy ground-glass densities favors pulmonary edema over infectious/inflammatory process. This could be cardiogenic with borderline enlarged heart. 3. Low lungs volume. Delta trop neg. Patient reassessed and chest pain-free on nitroglycerin infusion. Plan to admit. --I spoke with Dr. De La Rosa, on-call hospitalist, discussed ED presentation and course including diagnostics, he will admit the patient. A repeat ECG was obtained and reviewed and interpreted by me: No STEMI, T wave inversion in lead V2 slightly less pronounced but fairly similar, V3 persist. Lab Data Lab results reviewed: Yes I reviewed the patient's lab results. Labs: Laboratory Tests Range/Units 02/18/20 02/18/20 02/18/20 12:05 12:05 12:05 WBC (4.4-10.8) 10^3/uL 8.08 RBC (3.93-5.22) 10^6/uL 4.60 Hgb (11.2-15.7) g/dL 13.0 Hct (36.0-46.0) % 40.4 MCV (80-95) fL 87.8 MCH (27.0-33.0) pg 28.3 MCHC (32.0-36.0) % 32.2 RDW (11.7-14.6) % 12.8 Plt Count (130-400) 10^3/uL 334 MPV (8.0-11.0) fL 9.6 Immature Gran % 0.2 Neutrophils % 55.6 Lymphocytes % 30.6 Monocytes % 10.3 Eosinophils % 2.7 Basophils % 0.6 Nucleated RBC % % 0 Absolute Neutrophils (1.2-6.7) 10^3/uL 4.49 Absolute Lymphocytes (1.2-3.4) 10^3/uL 2.47 Absolute Monocytes (0.1-0.8) 10^3/uL 0.83 H Absolute Eosinophils (0.0-0.7) 10^3/uL 0.22 Absolute Basophils (0.0-0.2) 10^3/uL 0.05 APTT (21.0-31.4) sec 22.7 Sodium (136-145) mmol/L 137 Potassium (3.5-5.1) mmol/L 3.5 Chloride (98-107) mmol/L 104 Carbon Dioxide (21.0-32.0) mmol/L 23.9 Anion Gap (3-11) mmol/L 9.1 BUN (7-18) mg/dL 10 Creatinine (0.55-1.02) mg/dL 0.89 Estimated GFR/1.73 m2 (mL/min/1.73m2) >= 60.00 Glucose (74-106) mg/dL 90 Calcium (8.5-10.1) mg/dL 9.3 Total Bilirubin (0.2-1.0) mg/dL 0.6 AST (15-37) U/L 20 ALT (14-59) U/L 32 Alkaline Phosphatase (46-116) U/L 103 Troponin I (<0.06) ng/mL < 0.05 Total Protein (6.4-8.2) g/dL 7.4 Albumin (3.4-5.0) g/dL 4.1 Range/Units 02/18/20 15:05 WBC (4.4-10.8) 10^3/uL RBC (3.93-5.22) 10^6/uL Hgb (11.2-15.7) g/dL Hct (36.0-46.0) % MCV (80-95) fL MCH (27.0-33.0) pg MCHC (32.0-36.0) % RDW (11.7-14.6) % Plt Count (130-400) 10^3/uL MPV (8.0-11.0) fL Immature Gran % Neutrophils % Lymphocytes % Monocytes % Eosinophils % Basophils % Nucleated RBC % % Absolute Neutrophils (1.2-6.7) 10^3/uL Absolute Lymphocytes (1.2-3.4) 10^3/uL Absolute Monocytes (0.1-0.8) 10^3/uL Absolute Eosinophils (0.0-0.7) 10^3/uL Absolute Basophils (0.0-0.2) 10^3/uL APTT (21.0-31.4) sec Sodium (136-145) mmol/L Potassium (3.5-5.1) mmol/L Chloride (98-107) mmol/L Carbon Dioxide (21.0-32.0) mmol/L Anion Gap (3-11) mmol/L BUN (7-18) mg/dL Creatinine (0.55-1.02) mg/dL Estimated GFR/1.73 m2 (mL/min/1.73m2) Glucose (74-106) mg/dL Calcium (8.5-10.1) mg/dL Total Bilirubin (0.2-1.0) mg/dL AST (15-37) U/L ALT (14-59) U/L Alkaline Phosphatase (46-116) U/L Troponin I (<0.06) ng/mL < 0.05 Total Protein (6.4-8.2) g/dL Albumin (3.4-5.0) g/dL HPI General Mode of arrival: ambulatory. Date/Time Provider Initiated Documentation: 02/18/20 12:05. Limitations to Documentation: no limitations. Information obtained by: patient. HPI Narrative: 55-year-old female with past medical history pertinent for hypertension, hyperlipidemia, migraine, Prinzmetal angina, presents with chief complaint of chest pain. Patient notes she has had persistent chest pain since 11a this morning. Pain is localized to central chest and radiated to her left arm. She had associated lightheadedness as well as diaphoresis. Patient took sublingual nitroglycerin x1 and pain improved from 8/10-3/10. Pain has persisted and is currently 3/10. Patient does note that she has had some discomfort in her left calf recently with no swelling or inflammation. No pain currently. She denies shortness of breath at this time. Patient was seen here in the emergency department for migraine headache and also chest pain 12 days ago. She notes since discharge she has had intermittent chest discomfort, episodes brief in duration. Patient last had a stress test in 2018. Related Data Home Medications Medication Instructions Recorded Confirmed acetaminophen [Mapap Extra 1,000 mg PO PRN PRN 05/24/17 02/18/20 Strength] ibuprofen [Ibuprofen IB] 600 mg PO QID PRN 08/07/18 02/18/20 magnesium oxide 400 mg PO DAILY 01/14/19 02/18/20 nitroglycerin 0.4 mg sublingual 0.4 mg SL Q5-15M PRN 01/14/19 02/18/20 tablet gabapentin 300 mg capsule 300 mg PO TID #240 tab-cap 07/14/19 02/18/20 omeprazole 20 mg capsule,delayed 20 mg PO DAILY #90 tab-cap 07/26/19 02/18/20 release fluoxetine 40 mg capsule 40 mg PO DAILY #90 cap 09/07/19 02/18/20 amlodipine 2.5 mg tablet 2.5 mg PO DAILY #90 tab 10/04/19 02/18/20 atorvastatin 20 mg tablet 20 mg PO HS #90 tab 10/04/19 02/18/20 lisinopril 5 mg tablet 5 mg PO DAILY #90 tab 10/04/19 02/18/20 aspirin 81 mg tablet,delayed 81 mg PO DAILY #120 tablet. 11/29/19 02/18/20 release prochlorperazine maleate 5 mg See Rx Instructions PO TID PRN #30 12/12/19 02/18/20 tablet tab topiramate 50 mg tablet 50 mg PO QHS #30 tab 12/12/19 02/18/20 Previous Rx's Medication Instructions Recorded gabapentin 300 mg capsule 300 mg PO TID #240 tab-cap 07/14/19 omeprazole 20 mg capsule,delayed 20 mg PO DAILY #90 tab-cap 07/26/19 release fluoxetine 40 mg capsule 40 mg PO DAILY #90 cap 09/07/19 amlodipine 2.5 mg tablet 2.5 mg PO DAILY #90 tab 10/04/19 atorvastatin 20 mg tablet 20 mg PO HS #90 tab 10/04/19 lisinopril 5 mg tablet 5 mg PO DAILY #90 tab 10/04/19 aspirin 81 mg tablet,delayed 81 mg PO DAILY #120 tablet. 11/29/19 release prochlorperazine maleate 5 mg See Rx Instructions PO TID PRN #30 12/12/19 tablet tab topiramate 50 mg tablet 50 mg PO QHS #30 tab 12/12/19 Allergies Allergy/AdvReac Type Severity Reaction Status Date / Time phenytoin [From Dilantin] Allergy Mild Skin Rash Unverified 02/18/20 12:02 clonidine AdvReac Mild hypotension Unverified 02/18/20 12:17 tramadol AdvReac Mild Nausea Unverified 02/18/20 12:02 trazodone AdvReac Mild GI UPSET Verified 02/18/20 12:18 General Stated Complaint: Chest Pain ARCELIA: 2 Review of Systems All systems reviewed & are unremarkable except as noted in HPI and below Constitutional Constitutional: Denies fever(s) Cardiovascular Cardiovascular: Reports as per HPI Respiratory Respiratory: Reports as per HPI FORMERLY [facility], [facility] Medical History Bradycardia Colonoscopy planned Overdue for screening colonoscopy - 51 yrs old at 01/16/2016, no record of colo. Scheduled for screening colo 04/19/18 (consult 04/01/18) Colorectal polyps (~04/19/18) Degeneration of lumbosacral intervertebral disc Fatigue HTN (hypertension) Hyperlipidemia Internal derangement of right knee Knee pain Low back pain Migraine headache without aura Myofascial pain Otalgia of left ear Pes anserine bursitis Pes anserinus bursitis of right knee Injection: 02/07/20 Prinzmetal angina Sacroiliitis Spinal stenosis Thoracic back pain Varicose veins of left lower extremity Surgical History H/O colonoscopy (~04/19/18) S/P appendectomy S/P cholecystectomy S/P tubal ligation Status post carpal tunnel release of both wrists Family History Mother , age 69 Heart disease Lung cancer Father No problems noted. Sister , age 58 Depression Hyperlipidemia Bone cancer Sister Depression Sister No problems noted. Brother Heart disease Daughter Asthma Daughter No problems noted. Social History Smoking/Tobacco Use Status: Never Second Hand Exposure: No Alcohol Intake: former Drug use: Never Substance use type: does not use Caregiver/Support person: No Household members: none Housing: apartment Number of Children: 2 Communication Needs: None Pets and animals: Yes Pets and animals: cat(s) Sexually active: Yes Do you think of yourself as: straight/heterosexual Current gender identity: male What is your relationship status?: How often do you talk on the phone with friends or family?: three or more times per week How often do you get together with friends or relatives?: three or more times per week How often do you attend baptism or temple services?: 1-3 times per year Do you belong to any clubs or organized social groups?: no Panel score (0-1 are the most socially isolated patients): 1 What type of physical activity do you participate in: walking Duration: < 15 minutes/day Frequency: 3-4 times per week Lizzy/Congregation: None Special lizzy needs: No Seatbelt use: always Helmet use: Yes Helmet use: always Drive intox or ride w/intox drivers' cash clerk: No Do you feel safe at home: Yes Do you feel safe in your relationship?: Yes Exam Const General: cooperative and no acute distress HENMT Mouth: moist mucous membranes Eyes Conjunctivae: normal conjunctivae Sclera: normal sclerae Neck Neck: trachea midline and supple Resp Auscultation: clear to auscultation bilaterally, no rales, no rhonchi and no wheezes Cardio Rate: regular rate and not tachycardic Rhythm: regular rhythm GI Palpation: soft, not firm, no guarding, no masses, not rigid and nontender Skin General skin exam: no rashes or lesions noted Neuro General: patient alert, patient awake and tone normal Extrem General: no calf tenderness and no edema Psych Appearance: grossly normal Mental Status: mental status grossly normal Course Vital Signs Vital signs: Vital Signs Temperature 36.6 C 02/18/20 11:56 Pulse 56 L 02/18/20 11:56 Respiratory Rate 16 02/18/20 11:56 Blood Pressure 132/62 02/18/20 11:56 Pulse Oximetry 97 02/18/20 11:56 Temperature 36.6 C 02/18/20 11:56 Temperature Source Skin 02/18/20 11:56 Pulse 55 L 02/18/20 11:56 Pulse 60 02/18/20 11:56 Respiratory Rate 12 02/18/20 12:04 Respiratory Effort Non-Labored 02/18/20 12:04 Respiratory Depth Normal 02/18/20 12:04 Respiratory Pattern Normal 02/18/20 12:04 Blood Pressure 132/62 02/18/20 11:56 Blood Pressure Mean 80 02/18/20 11:56 Blood Pressure Position Supine 02/18/20 11:56 Pulse Oximetry 98 02/18/20 11:56 Oxygen Delivery Method Room Air 02/18/20 11:56 Oxygen Flow Rate 0 02/18/20 11:56 Pain Level 0 02/18/20 11:56 Lab/Test Results Lab/Test Results: Laboratory Tests Range/Units 02/18/20 02/18/20 12:05 12:05 WBC (4.4-10.8) 10^3/uL 8.08 RBC (3.93-5.22) 10^6/uL 4.60 Hgb (11.2-15.7) g/dL 13.0 Hct (36.0-46.0) % 40.4 MCV (80-95) fL 87.8 MCH (27.0-33.0) pg 28.3 MCHC (32.0-36.0) % 32.2 RDW (11.7-14.6) % 12.8 Plt Count (130-400) 10^3/uL 334 MPV (8.0-11.0) fL 9.6 Immature Gran % 0.2 Neutrophils % 55.6 Lymphocytes % 30.6 Monocytes % 10.3 Eosinophils % 2.7 Basophils % 0.6 Nucleated RBC % % 0 Absolute Neutrophils (1.2-6.7) 10^3/uL 4.49 Absolute Lymphocytes (1.2-3.4) 10^3/uL 2.47 Absolute Monocytes (0.1-0.8) 10^3/uL 0.83 H Absolute Eosinophils (0.0-0.7) 10^3/uL 0.22 Absolute Basophils (0.0-0.2) 10^3/uL 0.05 Sodium (136-145) mmol/L 137 Potassium (3.5-5.1) mmol/L 3.5 Chloride (98-107) mmol/L 104 Carbon Dioxide (21.0-32.0) mmol/L 23.9 Anion Gap (3-11) mmol/L 9.1 BUN (7-18) mg/dL 10 Creatinine (0.55-1.02) mg/dL 0.89 Estimated GFR/1.73 m2 (mL/min/1.73m2) >= 60.00 Glucose (74-106) mg/dL 90 Calcium (8.5-10.1) mg/dL 9.3 Total Bilirubin (0.2-1.0) mg/dL 0.6 AST (15-37) U/L 20 ALT (14-59) U/L 32 Alkaline Phosphatase (46-116) U/L 103 Troponin I (<0.06) ng/mL < 0.05 Total Protein (6.4-8.2) g/dL 7.4 Albumin (3.4-5.0) g/dL 4.1 Critical Care Time Critical Care Time Critical Care Time: Yes Total Critical Care Time: 40 Attestation: I spent greater than 40 minutes addressing this patient's immediate life threats. Please see MDM section of note. This time was spent engaged in work directly related to the patient's care, exclusive of separate procedures, and failure to initiate these interventions would have likely resulted in clinically significant or life threatening deterioration in the patient's condition.
[2020-02-18] MEDS: Normal Saline 500 ML IV (12:52)
[2020-02-18] MEDS: Aspirin 81 MG CHEW 243 MG CH (12:52)
[2020-02-18] MEDS: Omnipaque 350 MG/ML 100 ML BTL IJ (13:19)
--- NOTE | 2020-02-18 13:41 | DI.VRAD_ITS ---
PROCEDURE INFORMATION: Exam: CT Angiography Chest With Contrast Exam date and time: 02/18/2020 1:15 PM Age: 55 years old Clinical indication: Chest pain TECHNIQUE: Imaging protocol: Computed tomographic angiography of the chest with intravenous contrast. 3D rendering (Not supervised by radiologist): MIP and/or 3D reconstructed images were created by the technologist. COMPARISON: CT THORAX ABD/PEL CTA 06/02/2019 2:50 PM FINDINGS: Pulmonary arteries: There is no filling defect to suggest pulmonary embolism. There is no aortic dissection. Aorta: See Pulmonary arteries finding. Lungs: There has been interval increase in bilateral reticular interstitial thickening, vascular prominence and patchy ground-glass densities, most pronounced in perihilar and basilar lungs. There is a linear subsegmental atelectasis in left lingular segment. Lungs volumes are low. There is dependent atelectasis bilaterally. Pleural space: Unremarkable. No pneumothorax. No pleural effusion. Heart: Heart is borderline in size. Mediastinal space: There is a small hiatal hernia. Lymph nodes: Unremarkable. No enlarged lymph nodes. Bones/joints: No acute abnormality in osseous structures. There are scattered Schmorl's nodes and calcifications of discs in midthoracic vertebrae. Soft tissues: Unremarkable. IMPRESSION: 1. No pulmonary embolism or aortic dissection. 2. Interval increase in prominence of interstitial thickening with prominent interstitial vessels and patchy ground-glass densities favors pulmonary edema over infectious/inflammatory process. This could be cardiogenic with borderline enlarged heart. 3. Low lungs volume. Dictated and Authenticated by: Bharat Smith MD. Ordering:PUNEET Madrid MD
--- NOTE | 2020-02-18 14:45 | RT.EKG_ITS ---
APPROVED REPORT Exam: Resting ECG Patient Location: E HR:53 bpm ECG Measurements Heart Rate 53 AXIS [place] 160 P 38 QRSd 103 QRS -33 QT 494 T 36 QTc 462 Conclusion Sinus bradycardia...rate< 60 Left ventricular hypertrophy...multiple LVH criteria Twave inv V2-3
[2020-02-18] MEDS: Acetaminophen 325 MG TAB 650 MG PO (14:55)
[2020-02-18 15:28] LABS: PTT Activated 22.7 sec (21.0-31.4)
[2020-02-18 15:30] LABS: Troponin I < 0.05 ng/mL (<0.06)
--- NOTE | 2020-02-18 16:15 | RT.EKG_ITS ---
APPROVED REPORT Exam: Resting ECG Patient Location: E HR:50 bpm ECG Measurements Heart Rate 50 AXIS [place] 164 P 25 QRSd 98 QRS -33 QT 491 T 11 QTc 447 Conclusion Sinus bradycardia...rate< 60 biphasic T V2, t wave inv V3
--- NOTE | 2020-02-18 16:28 | W.PM.HP.N ---
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 Beny Toledo in [facility] upon discharge Qualifiers: Chest pain type: unspecified Qualified Code(s): R07.9 - Chest pain, unspecified (2) Bradycardia: Status: Chronic Assessment and plan: avoid AV yuliana blocking drugs; if treating for Prinzmetal's angina then I would titrate her amlodipine rather than diltiazem or verapamil d/t her bradycardia (3) Hyperlipidemia: Status: Chronic Assessment and plan: check lipid profile; continue her atorvastatin dose of 20 mg HS History of Present Illness History of Present Illness Chief Complaint: Chest pain Narrative: 55-year-old female with history essential hypertension, hyperlipidemia, non-smoker with a history of symptomatic bradycardia, atypical chest pain which is been evaluated in the remote past with cardiac catheterization and more recently with a stress MPI study in June 20, 2019 which was negative for ischemia. She recently presented to the emergency department February 06, 2020 in which she complained of nonexertional chest pain with radiation her left shoulder down her left arm she was evaluated with serial EKGs and serial troponin levels all which came back negative. Chest pain had resolved and she was discharged home from the emergency department with instruction to follow-up with her wire technician in [facility]. She has been scheduled for an outpatient stress MPI and follow-up with her wire technician done at [facility] March 21, 2020. She ordinarily sees Dr. Beny Toledo. Patient reports acute onset of chest tightness with radiation to her left shoulder and down her left arm beginning this morning around 11 AM while driving home from the gas station to her home in [facility]. She was babysitting her granddaughter. When the pain did not let up with the use of a single sublingual nitroglycerin she called her daughter who came home to seed cone picker the granddaughter and to take the patient to the emergency department. She had associated symptoms of dizziness and lightheadedness but did not have syncope. She had some nausea but no vomiting. Some mild dyspnea. There was no physical activity with the episode. She had diagnostic work-up in the emergency room department at [facility] that include serial EKGs, CTA of her chest, labs including serial troponin levels. Initial EKG did not show any acute ischemia but she has some chronic non-specific ST-T changes in the precordial leads V2-V3. Serial troponin levels were negative x 2 sets. CTA of her chest did not show any aneurysm nor PE but some bibasilar ground glass changes. The rest of her labs were unremarkable. She was given a 2nd NTG SL which improved her CP but did not resolve it. She was finally put on NTG drip which resolved her CP. Dr. Galindo put her on heparin drip along w/ the NTG drip. She is admitted to the ICU for treatment of atypical angina; r/o ACS. Review of Systems All systems reviewed & are unremarkable except as noted in HPI and below Cardiovascular Cardiovascular: Reports as per HPI Respiratory Respiratory: Reports as per HPI [facility] Medical History Bradycardia Colonoscopy planned Overdue for screening colonoscopy - 51 yrs old at 01/16/2016, no record of colo. Scheduled for screening colo 04/19/18 (consult 04/01/18) Colorectal polyps (~04/19/18) Degeneration of lumbosacral intervertebral disc Fatigue HTN (hypertension) Hyperlipidemia Internal derangement of right knee Knee pain Low back pain Migraine headache without aura Myofascial pain Otalgia of left ear Pes anserine bursitis Pes anserinus bursitis of right knee Injection: 02/07/20 Prinzmetal angina Sacroiliitis Spinal stenosis Thoracic back pain Varicose veins of left lower extremity Surgical History H/O colonoscopy (~04/19/18) S/P appendectomy S/P cholecystectomy S/P tubal ligation Status post carpal tunnel release of both wrists Family History Mother , age 69 Heart disease Lung cancer Father No problems noted. Sister , age 58 Depression Hyperlipidemia Bone cancer Sister Depression Sister No problems noted. Brother Heart disease Daughter Asthma Daughter No problems noted. Social History Smoking/Tobacco Use Status: Never Second Hand Exposure: No Alcohol Intake: former Drug use: Never Substance use type: does not use Caregiver/Support person: No Household members: none Housing: apartment Number of Children: 2 Communication Needs: None Pets and animals: Yes Pets and animals: cat(s) Sexually active: Yes Do you think of yourself as: straight/heterosexual Current gender identity: male What is your relationship status?: How often do you talk on the phone with friends or family?: three or more times per week How often do you get together with friends or relatives?: three or more times per week How often do you attend adventist or sabianism services?: 1-3 times per year Do you belong to any clubs or organized social groups?: no Panel score (0-1 are the most socially isolated patients): 1 What type of physical activity do you participate in: walking Duration: < 15 minutes/day Frequency: 3-4 times per week Lizzy/Rastafari: None Special lizzy needs: No Seatbelt use: always Helmet use: Yes Helmet use: always Drive intox or ride w/intox bulk truck driver: No Do you feel safe at home: Yes Do you feel safe in your relationship?: Yes Meds Home Medications and Allergies Home Medications Medication Instructions Recorded Confirmed Type acetaminophen [Mapap Extra 1,000 mg PO PRN PRN 05/24/17 02/18/20 History Strength] ibuprofen [Ibuprofen IB] 600 mg PO QID PRN 08/07/18 02/18/20 History magnesium oxide 400 mg PO DAILY 01/14/19 02/18/20 History nitroglycerin 0.4 mg sublingual 0.4 mg SL Q5-15M PRN 01/14/19 02/18/20 History tablet gabapentin 300 mg capsule 300 mg PO TID #240 tab-cap 07/14/19 02/18/20 Rx omeprazole 20 mg capsule,delayed 20 mg PO DAILY #90 tab-cap 07/26/19 02/18/20 Rx release fluoxetine 40 mg capsule 40 mg PO DAILY #90 cap 09/07/19 02/18/20 Rx amlodipine 2.5 mg tablet 2.5 mg PO DAILY #90 tab 10/04/19 02/18/20 Rx atorvastatin 20 mg tablet 20 mg PO HS #90 tab 10/04/19 02/18/20 Rx lisinopril 5 mg tablet 5 mg PO DAILY #90 tab 10/04/19 02/18/20 Rx aspirin 81 mg tablet,delayed 81 mg PO DAILY #120 tablet. 11/29/19 02/18/20 Rx release prochlorperazine maleate 5 mg See Rx Instructions PO TID PRN #30 12/12/19 02/18/20 Rx tablet tab topiramate 50 mg tablet 50 mg PO QHS #30 tab 12/12/19 02/18/20 Rx Allergies Allergy/AdvReac Type Severity Reaction Status Date / Time phenytoin [From Dilantin] Allergy Mild Skin Rash Unverified 02/18/20 12:02 clonidine AdvReac Mild hypotension Unverified 02/18/20 12:17 tramadol AdvReac Mild Nausea Unverified 02/18/20 12:02 trazodone AdvReac Mild GI UPSET Verified 02/18/20 12:18 Exam Narrative Exam Narrative: Middle age female lying on [facility], currently in N.A.D; A&O x 3 HEENT: unremarkable Neck: no JVD, thyromegaly; normal carotid pulses; supple, nontender Lungs: clear to auscultation Cor: regular, bradycardia; no murmur, rub or gallop Abd: soft, nontender; no bruits Extremities: no C/C/E Neuro: grossly intact, non-focal Results Labs Result diagrams: 02/18/20 12:05 02/18/20 12:05 Labs: Laboratory Results - last 24 hr 02/18/20 02/18/20 02/18/20 12:05 12:05 12:05 WBC 8.08 RBC 4.60 Hgb 13.0 Hct 40.4 MCV 87.8 MCH 28.3 MCHC 32.2 RDW 12.8 Plt Count 334 MPV 9.6 Immature Gran % 0.2 Neutrophils % 55.6 Lymphocytes % 30.6 Monocytes % 10.3 Eosinophils % 2.7 Basophils % 0.6 Nucleated RBC % 0 Absolute Neutrophils 4.49 Absolute Lymphocytes 2.47 Absolute Monocytes 0.83 H Absolute Eosinophils 0.22 Absolute Basophils 0.05 APTT 22.7 Sodium 137 Potassium 3.5 Chloride 104 Carbon Dioxide 23.9 Anion Gap 9.1 BUN 10 Creatinine 0.89 Estimated GFR/1.73 m2 >= 60.00 Glucose 90 Calcium 9.3 Total Bilirubin 0.6 AST 20 ALT 32 Alkaline Phosphatase 103 Troponin I < 0.05 Total Protein 7.4 Albumin 4.1 02/18/20 15:05 WBC RBC Hgb Hct MCV MCH MCHC RDW Plt Count MPV Immature Gran % Neutrophils % Lymphocytes % Monocytes % Eosinophils % Basophils % Nucleated RBC % Absolute Neutrophils Absolute Lymphocytes Absolute Monocytes Absolute Eosinophils Absolute Basophils APTT Sodium Potassium Chloride Carbon Dioxide Anion Gap BUN Creatinine Estimated GFR/1.73 m2 Glucose Calcium Total Bilirubin AST ALT Alkaline Phosphatase Troponin I < 0.05 Total Protein Albumin Last Vital Signs Temp 36.6 C 02/18/20 11:56 Pulse 54 L 02/18/20 16:00 Resp 21 02/18/20 16:01 BP 128/69 02/18/20 16:00 Pulse Ox 97 02/18/20 16:01 COVID-19 Screening Have you,or household,traveled outside [facility] in last 14 days?: No Had IN PERSON contact w/suspected or confirmed C-19 person: No
--- NOTE | 2020-02-18 17:50 | NUR.NOTE ---
Nursing Note: PT care report transferred to NEWS CAMERAMANJYOTI Lizarraga. At the time of transfer the PT is alert and oriented, vitals stable. See MAR for rate of infusions.
--- NOTE | 2020-02-18 17:56 | NUR.NOTE ---
Nursing Note: Name and phone number of patient's daughter was given to ICU; Janina. Patient gave permission to Dr. Galindo to speak with her daughter. Graciela Salgado [phone]
[2020-02-18] MEDS: Acetaminophen 325 MG TAB PO ×2 (18:36→22:30)
[2020-02-18 18:52] LABS: Troponin I < 0.05 ng/mL (<0.06)
[2020-02-18 21:37] LABS: Troponin I < 0.05 ng/mL (<0.06)
[2020-02-18] MEDS: Atorvastatin 20 MG TAB PO (21:44)
[2020-02-18] MEDS: Gabapentin 300 MG CAP PO (21:45)
[2020-02-18] MEDS: Topiramate 50 MG TAB PO (21:45)
[2020-02-18 21:58] LABS: PTT Activated 58.6 sec (21.0-31.4)
[2020-02-19] VITALS (31 sets, daily range): BP systolic 105–146; BP diastolic 55–75; PULSE 45–63; RESP 13–21; TEMP 36–36.6; O2SAT 99–100
[2020-02-19] MEDS: Acetaminophen 325 MG TAB PO (03:55)
[2020-02-19 07:38] LABS: PTT Activated 56.1 sec (21.0-31.4)
[2020-02-19 07:41] LABS: Calculated LDL 120 mg/dL (<100); Cholesterol 183 mg/dL (<200); HDL Cholesterol 40 mg/dL (40-60); Triglyceride 117 mg/dL (<150)
[2020-02-19 07:50] LABS: COVID-19 RT-PCR UVMMC Result Negative (Negative)
--- NOTE | 2020-02-19 08:29 | PDOC.CMIN ---
- If Service Date Differs Date of service: 02/19/20 Time of Service: 14:45 Care Management Initial Assess REASON FOR HOSPITALIZATION:: Angina PAST MEDICAL HISTORY/PAST SURGICAL HISTORY:: Medical History (Updated 06/02/19 @ 22:42 by Jc Staley). Bradycardia (Acute). Colorectal polyps (Resolved ~04/19/18). Degeneration of lumbosacral intervertebral disc. HTN (hypertension). Hyperlipidemia. Knee pain (Acute). Low back pain. Migraine headache without aura (Acute). Myofascial pain. Otalgia of left ear (Acute). Prinzmetal angina (Acute). Sacroiliitis. Spinal stenosis (Acute). Thoracic back pain (Acute). Varicose veins of left lower extremity (Acute). Surgical History (Updated 06/02/19 @ 22:42 by Jc Staley). H/O colonoscopy (Chronic ~04/19/18). S/P appendectomy (Acute). S/P cholecystectomy (Acute). S/P tubal ligation (Acute). Status post carpal tunnel release of both wrists (Acute) PREVIOUS FUNCTIONAL STATUS/SOCIAL/FAMILY SUPPORTS:: Lazara resides in [facility] in an apartment alone, and her boyfriend Finn lives in another apartment in her building. 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 She has two adult children, one who lives in [place], [place], and one who lives a couple hours away. Lazara uses [employer] transportation, but otherwise is independent at baseline. CURRENT FUNCTIONAL STATUS:: Lazara has ruled out for NV and will return home per MD. She will follow up as an outpatient for an MPI Stress test in [place]. ADVANCE DIRECTIVES:: None on file Has patient been provided with info about the portal/API?: Yes Did the patient sign up for the portal?: Yes (Previously) CODE STATUS:: Full Code INSURANCE COVERAGE / FINANCIAL ISSUES:: [employer]EN CURRENT HOME/COMMUNITY SERVICES/EQUIPMENT:: Lazara uses [facility]. PRIMARY CARE PHYSICIAN:: Cheryle Perdomo POTENTIAL DISCHARGE NEEDS:: Evaluations for further needs, follow up appointments PATIENT/FAMILY EDUCATION NEEDS:: Review discharge instructions regarding medications and activity levels, discussion of self care needs including ask me three ANTICIPATED BARRIERS TO DISCHARGE:: None identified at this time TRANSPORTATION:: Lazara's boyfriend, Finn will drive her home via private vehicle. PLAN:: Lazara will return home with no additional services once medically cleared. Her boyfriend, Finn will drive her home via private vehicle when ready. She will follow up with her PCP, and for her MPI outpatient, as recommended.
[2020-02-19] MEDS: Magnesium Oxide 400 MG TAB PO (09:27)
[2020-02-19] MEDS: Gabapentin 300 MG CAP PO (09:27)
[2020-02-19] MEDS: Omeprazole 20 MG CAPCR PO (09:27)
[2020-02-19] MEDS: Lisinopril 5 MG TAB PO (09:27)
[2020-02-19] MEDS: FLUoxetine 20 MG CAP 40 MG PO (09:27)
[2020-02-19] MEDS: Aspirin E.C. 81 MG TABEC PO (09:27)
[2020-02-19] MEDS: Ibuprofen 600 MG TAB (09:28)
--- NOTE | 2020-02-19 12:13 | W.PM.DS.N ---
Date of service: 02/19/20 Time of Service: 12:14 DS: Diagnosis Discharge Diagnosis (1) Chest pain: Status: Acute Asessment and Plan: Patient was treated for ACS with heparin drip and nitroglycerin drip however her troponin levels all came back negative x4 sets. EKG showed chronic nonspecific ST abnormalities across the precordial leads that did not change. CT of her chest showed no aneurysm and no pulmonary emboli. She does have some groundglass interstitial changes in the both bases which will need followed up as an outpatient. It is recommended that she see a mobile sales technician for follow-up. (2) Bradycardia: Status: Chronic Asessment and Plan: Patient has chronic sinus bradycardia but normal blood pressures. She should follow-up with her supervising fire marshal Dr. Beny whitmore to discuss whether or not she needs a cardiac event recorder to assess any correlation of her bradycardia with her symptoms. (3) Hyperlipidemia: Status: Chronic Asessment and Plan: Lipid profile was checked while she was hospitalized and her triglycerides were normal at 117 and her total cholesterol level was normal at 183 but her LDL was mildly elevated at 120 with a normal low HDL of 40. She is currently on atorvastatin 20 mg nightly. Her dose was not changed but it is recommended that her PCP coordinate with her supervising fire marshal regarding risk factor reduction including increasing her statin dose to get her LDL level under 100. (4) Abnormal CT of the chest: Status: Acute Asessment and Plan: CT of her chest showed patchy groundglass densities in both bases. It is recommended that this be followed up by a mobile sales technician and I would recommend high-resolution CT scan of her chest. Discharge Plan Disposition Patient Disposition: HOME Condition: Improving Discharge Details Reason For Visit: ANGINA Admit Date/Time: 02/18/20 16:28 Admit Provider: Jc Staley Attending Provider: Jc Staley Primary Care Provider: [facility] Hospital Course: 55-year-old female with a past medical history of essential hypertension, chronic sinus bradycardia, hyperlipidemia and atypical chest pain with previous negative stress MPI June 20, 2019 presented to the emergency department with ongoing prolonged chest tightness with radiation to her left shoulder down her left arm not associated with any physical activity. Patient had taken 1 nitroglycerin at home with no relief and upon presentation the emergency department had serial EKGs and troponin level drawn as well as undergoing a CTA of her chest. She was given additional sublingual nitroglycerin with no significant improvement in her chest pain and then was started on nitroglycerin drip afterwards her chest pain gradually eased off. CTA of her chest showed no pulmonary embolism or aortic dissection. However there was some prominent interstitial thickening and patchy groundglass densities in the bases and perihilar areas. However the patient had no symptoms referable to any acute pulmonary process. Specifically she had no cough and no hypoxemia no dyspnea. Laboratory studies include CBC which was within normal limits CMP was within normal limits. Serial troponin I levels were less than 0.05x4 sets. Patient was started on heparin drip by the emergency room physician out of concern for unstable angina. Patient's EKGs demonstrate sinus bradycardia with some nonspecific ST-T wave abnormalities across the precordial leads which were similar to her previous findings from February 06, 2020. Patient was hospitalized overnight after being started on nitroglycerin drip and heparin drip. Because of a severe headache caused by the nitroglycerin the nitroglycerin drip was discontinued. The next morning patient had intermittent twinges of pain that would last for couple minutes located over the left precordial area above her left breast and radiating into her shoulder. As there is no evidence for acute ischemic EKG changes or troponin changes and because of the fleeting nature of her chest discomfort at rest was felt that this is unlikely to be ischemic pain. Patient already has an outpatient follow-up with her supervising fire marshal Dr. Beny whitmore and a scheduled stress test at [facility] within the next 1 to 2 weeks. Was felt that the patient could be discharged home with close follow-up by her supervising fire marshal with the caveat that if she has severe chest discomfort and dyspnea she should return to the emergency department. Home Meds and New Rx's Prescriptions: Continued topiramate [Topamax] 50 mg tablet 50 mg PO QHS Qty: 30 RF: 2 prochlorperazine maleate 5 mg tablet See Rx Instructions PO TID PRN (Reason: nausea and vomiting) Qty: 30 RF: 2 amlodipine 2.5 mg tablet 2.5 mg PO DAILY Qty: 90 RF: 4 atorvastatin 20 mg tablet 20 mg PO HS Qty: 90 RF: 4 lisinopril 5 mg tablet 5 mg PO DAILY Qty: 90 RF: 4 magnesium oxide 400 mg magnesium capsule 400 mg PO DAILY RF: 0 nitroglycerin [Nitrostat] 0.4 mg tablet, sublingual 0.4 mg SL Q5-15M PRNRF: 0 gabapentin 300 mg capsule 300 mg PO TID Qty: 240 RF: 4 omeprazole 20 mg capsule,delayed release(DR/EC) 20 mg PO DAILY Qty: 90 RF: 3 fluoxetine 40 mg capsule 40 mg PO DAILY Qty: 90 RF: 3 aspirin [Aspir-81] 81 mg tablet,delayed release (DR/EC) 81 mg PO DAILY Qty: 120 RF: 3 ibuprofen [Ibuprofen IB] 200 mg Tablet 600 mg PO QID PRNRF: 0 acetaminophen [Mapap Extra Strength] 500 MG tablet 1,000 mg PO PRN PRNRF: 0 Discharge Instructions Instructions: Chest Pain (DC) Additional Instructions: Keep your follow-up with Dr. Beny whitmore in [facility] and follow-up with your scheduled outpatient stress test [facility]. If you have recurrent unrelenting chest pains and dyspnea please return to the nearest hospital. Activity:: Activity as Tolerated Equipment/Supplies:: No Equipment Needed Diet:: Normal Diet Discharge Orders Discharge Orders: Discharge Order (Routine); Ordered 02/19/20 Ordered By: Jc Staley DS: Summary Status at Discharge Functional status at discharge: independent ambulation Overall status at discharge: patient is back to baseline Mental Status: mental status grossly normal Speech and Movement: speech and movement normal Mood: congruent mood Affect: normal affect Exam Narrative Exam Narrative: Middle-age female lying in bed in no distress. She is alert and oriented person place time circumstance. She is watching TV and appears to be quite comfortable. Lungs are clear to auscultation. Heart is regular but bradycardic no appreciable murmur rub or gallop. Chest wall is nontender. Psych Mental Status: mental status grossly normal Speech and Movement: speech and movement normal Mood: congruent mood Affect: normal affect DS: Data Vitals/I&O Vitals and I&O: Vital Signs Temperature 36.6 C 02/19/20 10:31 Temperature Source Temporal Artery Scan 02/19/20 10:31 Pulse 50 L 02/19/20 10:19 Pulse 57 L 02/19/20 10:19 Respiratory Rate 17 02/19/20 10:19 Respiratory Effort Non-Labored 10/18/20 10:31 Respiratory Depth Normal 02/19/20 10:31 Respiratory Pattern Normal 02/19/20 10:31 Blood Pressure 129/68 02/19/20 10:19 Blood Pressure Mean 81 02/19/20 10:19 Blood Pressure Position Supine 02/19/20 10:31 Pulse Oximetry 100 02/19/20 10:31 Oxygen Delivery Method Room Air 02/19/20 10:31 Oxygen Flow Rate 0 02/19/20 10:31 Pain Level 0 02/19/20 10:31 Intake & Output 02/18/20 02/19/20 02/19/20 23:59 11:59 23:59 Intake Total 987.725 / 987.725 843.7 / 843.7 Output Total 200 / 200 1560 / 1560 Balance 787.725 / 787.725 -716.3 / -716.3 Weight 75.8 kg 76 kg Intake: IV 587.725 / 587.725 3.7 / 3.7 Oral 400 / 400 840 / 840 Output: Urine 200 / 200 1560 / 1560 Other: Urine Color Yellow Yellow Urine Appearance Clear Clear Urine Odor Normal Normal Comment Mixed with stool. Stool Size Moderate Stool Characteristics Soft Voiding Methods Bedside Commode Bedside Commode Data Completed and Pending Labs on day of discharge: Labs from last 24 hours 02/19/20 02/19/20 02/18/20 06:35 06:35 21:30 WBC RBC Hgb Hct MCV MCH MCHC RDW Plt Count MPV Immature Gran % Neutrophils % Lymphocytes % Monocytes % Eosinophils % Basophils % Nucleated RBC % Absolute Neutrophils Absolute Lymphocytes Absolute Monocytes Absolute Eosinophils Absolute Basophils APTT 56.1 H 58.6 H D Sodium Potassium Chloride Carbon Dioxide Anion Gap BUN Creatinine Estimated GFR/1.73 m2 Glucose Calcium Total Bilirubin AST ALT Alkaline Phosphatase Troponin I Total Protein Albumin Triglycerides 117 Total Cholesterol 183 LDL Cholesterol, Calc 120 H HDL Cholesterol 40 COVID-19 PCR Nasopharyn COVID-19 PCR Ref Test Perform Site 02/18/20 02/18/20 02/18/20 21:10 19:47 18:20 WBC RBC Hgb Hct MCV MCH MCHC RDW Plt Count MPV Immature Gran % Neutrophils % Lymphocytes % Monocytes % Eosinophils % Basophils % Nucleated RBC % Absolute Neutrophils Absolute Lymphocytes Absolute Monocytes Absolute Eosinophils Absolute Basophils APTT Cancelled Sodium Potassium Chloride Carbon Dioxide Anion Gap BUN Creatinine Estimated GFR/1.73 m2 Glucose Calcium Total Bilirubin AST ALT Alkaline Phosphatase Troponin I < 0.05 < 0.05 Total Protein Albumin Triglycerides Total Cholesterol LDL Cholesterol, Calc HDL Cholesterol COVID-19 PCR Nasopharyn COVID-19 PCR Ref Test Perform Site 02/18/20 02/18/20 02/18/20 16:30 15:05 12:05 WBC RBC Hgb Hct MCV MCH MCHC RDW Plt Count MPV Immature Gran % Neutrophils % Lymphocytes % Monocytes % Eosinophils % Basophils % Nucleated RBC % Absolute Neutrophils Absolute Lymphocytes Absolute Monocytes Absolute Eosinophils Absolute Basophils APTT 22.7 Sodium Potassium Chloride Carbon Dioxide Anion Gap BUN Creatinine Estimated GFR/1.73 m2 Glucose Calcium Total Bilirubin AST ALT Alkaline Phosphatase Troponin I < 0.05 Total Protein Albumin Triglycerides Total Cholesterol LDL Cholesterol, Calc HDL Cholesterol COVID-19 PCR Negative Nasopharyn COVID-19 PCR Not Applicable Ref Test Perform Site [facility] 02/18/20 02/18/20 12:05 12:05 WBC 8.08 RBC 4.60 Hgb 13.0 Hct 40.4 MCV 87.8 MCH 28.3 MCHC 32.2 RDW 12.8 Plt Count 334 MPV 9.6 Immature Gran % 0.2 Neutrophils % 55.6 Lymphocytes % 30.6 Monocytes % 10.3 Eosinophils % 2.7 Basophils % 0.6 Nucleated RBC % 0 Absolute Neutrophils 4.49 Absolute Lymphocytes 2.47 Absolute Monocytes 0.83 H Absolute Eosinophils 0.22 Absolute Basophils 0.05 APTT Sodium 137 Potassium 3.5 Chloride 104 Carbon Dioxide 23.9 Anion Gap 9.1 BUN 10 Creatinine 0.89 Estimated GFR/1.73 m2 >= 60.00 Glucose 90 Calcium 9.3 Total Bilirubin 0.6 AST 20 ALT 32 Alkaline Phosphatase 103 Troponin I < 0.05 Total Protein 7.4 Albumin 4.1 Triglycerides Total Cholesterol LDL Cholesterol, Calc HDL Cholesterol COVID-19 PCR Nasopharyn COVID-19 PCR Ref Test Perform Site [facility] Medical History (Updated 02/19/20 @ 12:23 by Jc Staley) Bradycardia Colonoscopy planned Overdue for screening colonoscopy - 51 yrs old at 01/16/2016, no record of colo. Scheduled for screening colo 04/19/18 (consult 04/01/18) Colorectal polyps (~04/19/18) Degeneration of lumbosacral intervertebral disc Fatigue HTN (hypertension) Hyperlipidemia Internal derangement of right knee Knee pain Low back pain Migraine headache without aura Myofascial pain Otalgia of left ear Pes anserine bursitis Pes anserinus bursitis of right knee Injection: 02/07/20 Prinzmetal angina Sacroiliitis Spinal stenosis Thoracic back pain Varicose veins of left lower extremity Surgical History H/O colonoscopy (~04/19/18) S/P appendectomy S/P cholecystectomy S/P tubal ligation Status post carpal tunnel release of both wrists Family History Mother , age 69 Heart disease Lung cancer Father No problems noted. Sister , age 58 Depression Hyperlipidemia Bone cancer Sister Depression Sister No problems noted. Brother Heart disease Daughter Asthma Daughter No problems noted. Social History Smoking/Tobacco Use Status: Never Second Hand Exposure: No Alcohol Intake: former Drug use: Never Substance use type: does not use Caregiver/Support person: No Household members: none Housing: apartment Number of Children: 2 Communication Needs: None Pets and animals: Yes Pets and animals: cat(s) Sexually active: Yes Do you think of yourself as: straight/heterosexual Current gender identity: male What is your relationship status?: How often do you talk on the phone with friends or family?: three or more times per week How often do you get together with friends or relatives?: three or more times per week How often do you attend rastafari or jainism services?: 1-3 times per year Do you belong to any clubs or organized social groups?: no Panel score (0-1 are the most socially isolated patients): 1 What type of physical activity do you participate in: walking Duration: < 15 minutes/day Frequency: 3-4 times per week Lizzy/Episcopalian: None Special lizzy needs: No Seatbelt use: always Helmet use: Yes Helmet use: always Drive intox or ride w/intox commercial driver: No Do you feel safe at home: Yes Do you feel safe in your relationship?: Yes
== END 2020-02-19 13:00 | disposition home or self-care (01) ==
LOC: ER 16:51 → ICU 17:33
PROVIDERS: Family Medicine; Admitting Provider Internal Medicine; Emergency Provider Student in an Organized Health Care Education/Training Program; PCP Nurse Practitioner; Visit Provider Internal Medicine
DX: R07.89 Other chest pain (principal); R00.1 Bradycardia, unspecified; R94.31 Abnormal electrocardiogram [ECG] [EKG]; E78.5 Hyperlipidemia, unspecified; I10 Essential (primary) hypertension; R53.83 Other fatigue; M54.5 Low back pain; M46.1 Sacroiliitis, not elsewhere classified; M48.00 Spinal stenosis, site unspecified; I83.90 Asymptomatic varicose veins of unspecified lower extremity; G43.009 Migraine without aura, not intractable, without status migrainosus; R91.8 Other nonspecific abnormal finding of lung field
CPT/HCPCS: 36415; 71275; 80053; 80061; 93005; 96361; 96365; 96366; 96368; 96376; 99220; 99238; 99291; U0003; 84484; 85025; 85730; 93010; 99217; G0378; J3490

== ENCOUNTER 2020-02-21 11:12 | Emergency (ER) | payer MEDICARE, MEDICAID, SELFPAY ==
[2020-02-21] VITALS (52 sets, daily range): BP systolic 105–143; BP diastolic 59–86; PULSE 56–77; RESP 12–25; TEMP 36.7; O2SAT 93–98
--- NOTE | 2020-02-21 11:15 | RT.EKG_ITS ---
APPROVED REPORT Exam: Resting ECG Patient Location: E HR:59 bpm ECG Measurements Heart Rate 59 AXIS AR 161 P 48 QRSd 96 QRS -38 QT 429 T 45 QTc 427 Conclusion Sinus bradycardia...rate< 60 Low voltage, precordial leads...precordial leads <1.0mV Probable LVH with secondary repol abnrm...multiple LVH criteria. No acute change from previous. No STEMI. I have reviewed and interpreted ECG and agree with software generated interpretation.
--- NOTE | 2020-02-21 11:24 | W.ED.GENAD ---
Discharge Plan Disposition Patient Disposition: HOME Condition: Stable Discharge Details Clinical Impression: Atypical chest pain, Chronic chest pain Primary Care Provider: Cheryle Perdomo ED Provider: Jyoti Meyer Home Meds and New Rx's Prescriptions: New isosorbide mononitrate 30 mg tablet extended release 24 hr 30 mg PO DAILY Qty: 30 RF: 0 Continued topiramate [Topamax] 50 mg tablet 50 mg PO QHS Qty: 30 RF: 2 prochlorperazine maleate 5 mg tablet See Rx Instructions PO TID PRN (Reason: nausea and vomiting) Qty: 30 RF: 2 amlodipine 2.5 mg tablet 2.5 mg PO DAILY Qty: 90 RF: 4 atorvastatin 20 mg tablet 20 mg PO HS Qty: 90 RF: 4 lisinopril 5 mg tablet 5 mg PO DAILY Qty: 90 RF: 4 magnesium oxide 400 mg magnesium capsule 400 mg PO DAILY RF: 0 nitroglycerin [Nitrostat] 0.4 mg tablet, sublingual 0.4 mg SL Q5-15M PRNRF: 0 gabapentin 300 mg capsule 300 mg PO TID Qty: 240 RF: 4 omeprazole 20 mg capsule,delayed release(DR/EC) 20 mg PO DAILY Qty: 90 RF: 3 fluoxetine 40 mg capsule 40 mg PO DAILY Qty: 90 RF: 3 aspirin [Aspir-81] 81 mg tablet,delayed release (DR/EC) 81 mg PO DAILY Qty: 120 RF: 3 ibuprofen [Ibuprofen IB] 200 mg Tablet 600 mg PO QID PRNRF: 0 acetaminophen [Mapap Extra Strength] 500 MG tablet 1,000 mg PO PRN PRNRF: 0 Discharge Instructions Instructions: Chest Pain (ED), Chronic Pain (ED) Additional Instructions: Drink plenty of fluids and get plenty of rest. Take the Imdur as directed. Take your regular medications as directed. Call Dr. Nuñez's office today or tomorrow to schedule an outpatient coronary CTA (computed tomography angiography) for further evaluation before your follow-up appointment with him next week. You have been scheduled for an outpatient cardiac stress test here at [facility] on 02/22 at 2:30pm. Return immediately to the emergency department with any worsening or new concerning symptoms. Discharge Data Discharge Date/Time-TO BE ENTERED AT DEPARTURE: 02/21/20 16:35 Discharge Physician: Jyoti Meyer Medical Decision Making 1125 -- 55-year-old female with a history of hypertension, hyperlipidemia, Prinzmetal's angina recently admitted here for chest pain rule out with negative work-up and thought to be nonischemic chest pain with plan for outpatient stress test who presents for persistent left-sided chest pain with radiation to her left arm over the past 3 days with worsening episode today while sitting and doing laundry. EKG on arrival notes a rate of 59, sinus no acute ST-T wave ischemic changes. BP mildly hypertensive, otherwise vitals within normal limits. Patient appears anxious. As chest pain has been constant, this does not classically fit a cardiac etiology of chest pain. Considering patient's age and history, will obtain a cardiac work-up, chest x-ray and give a full dose aspirin and a dose of Ativan and reassess. 1225 --labs and imaging reviewed and unremarkable. Patient reassessed and states only minimal relief in chest pain, down from 6/10-5/10. Will give nitro and reassess. We will plan on repeat troponin. 1255 --patient had improvement of chest pain after 2 nitro, now /. She is declining any further nitro due to headache. We will continue IV fluids and give a dose of Tylenol. Unable to obtain an exercise stress test here inpatient until . Case d/w hospitalist and he recommends discussing with pt's medical writer Dr. Toledo as pt had unremarkable workup for chest pain here 2 days ago. 1430 --Case discussed with [facility] cardiology who discussed with Dr. Toledo and they do not feel that this is cardiac in etiology and recommend an outpatient coronary CTA which we are unable to do here but can be done at [place]. They are recommending that patient call Dr. Nuñez's office to have them order this outpatient coronary CTA. They recommend starting Imdur 30 mg once daily. Repeat troponin negative. Repeat EKG unchanged. Patient reassessed and she states she would prefer to go home at this time. We will schedule patient for an outpatient exercise stress test in 2 days while awaiting the coronary CTA. Heart score of 3 which is low risk based on patient's age, risk factors, slightly suspicious history with 2 - troponins and 2 unremarkable EKGs. Usual and customary return precautions given prior to discharge. Medical Records Medical records reviewed: Yes I reviewed the patient's medical records. Imaging Data Radiologic Study: Radiologist's impression: XR CHEST 2V PA LATERAL CLINICAL HISTORY: sob, chest pain, r/o acute disease TECHNIQUE: 2D digital imaging was performed. COMPARISON: CR XR CHEST 2V PA LATERAL from 02/06/2020 FINDINGS: The lungs are suboptimally inflated on the PA view. Heart size is normal. The lungs appear clear. There are mild degenerative changes in the spine. IMPRESSION: No acute abnormality. Lab Data Lab results reviewed: Yes I reviewed the patient's lab results. Labs: Laboratory Tests Range/Units 02/21/20 02/21/20 02/21/20 11:30 11:30 11:30 WBC (4.4-10.8) 10^3/uL 8.17 RBC (3.93-5.22) 10^6/uL 4.66 Hgb (11.2-15.7) g/dL 13.5 Hct (36.0-46.0) % 41.2 MCV (80-95) fL 88.4 MCH (27.0-33.0) pg 29.0 MCHC (32.0-36.0) % 32.8 RDW (11.7-14.6) % 12.8 Plt Count (130-400) 10^3/uL 341 MPV (8.0-11.0) fL 9.6 Immature Gran % 0.2 Neutrophils % 60.5 Lymphocytes % 27.4 Monocytes % 8.1 Eosinophils % 3.3 Basophils % 0.5 Nucleated RBC % % 0 Absolute Neutrophils (1.2-6.7) 10^3/uL 4.94 Absolute Lymphocytes (1.2-3.4) 10^3/uL 2.24 Absolute Monocytes (0.1-0.8) 10^3/uL 0.66 Absolute Eosinophils (0.0-0.7) 10^3/uL 0.27 Absolute Basophils (0.0-0.2) 10^3/uL 0.04 PT (9.3-11.0) sec 9.9 INR (0.9-1.1) 1.0 APTT (21.0-31.4) sec 22.4 Sodium (136-145) mmol/L 139 Potassium (3.5-5.1) mmol/L 3.4 L Chloride (98-107) mmol/L 104 Carbon Dioxide (21.0-32.0) mmol/L 25.3 Anion Gap (3-11) mmol/L 9.7 BUN (7-18) mg/dL 13 Creatinine (0.55-1.02) mg/dL 0.91 Estimated GFR/1.73 m2 (mL/min/1.73m2) >= 60.00 Glucose (74-106) mg/dL 115 H Calcium (8.5-10.1) mg/dL 9.2 Magnesium (1.8-2.4) mg/dL 1.9 Total Bilirubin (0.2-1.0) mg/dL 0.5 AST (15-37) U/L 36 ALT (14-59) U/L 49 Alkaline Phosphatase (46-116) U/L 106 Troponin I (<0.06) ng/mL < 0.05 Total Protein (6.4-8.2) g/dL 8.0 Albumin (3.4-5.0) g/dL 4.3 Range/Units 02/21/20 14:30 WBC (4.4-10.8) 10^3/uL RBC (3.93-5.22) 10^6/uL Hgb (11.2-15.7) g/dL Hct (36.0-46.0) % MCV (80-95) fL MCH (27.0-33.0) pg MCHC (32.0-36.0) % RDW (11.7-14.6) % Plt Count (130-400) 10^3/uL MPV (8.0-11.0) fL Immature Gran % Neutrophils % Lymphocytes % Monocytes % Eosinophils % Basophils % Nucleated RBC % % Absolute Neutrophils (1.2-6.7) 10^3/uL Absolute Lymphocytes (1.2-3.4) 10^3/uL Absolute Monocytes (0.1-0.8) 10^3/uL Absolute Eosinophils (0.0-0.7) 10^3/uL Absolute Basophils (0.0-0.2) 10^3/uL PT (9.3-11.0) sec INR (0.9-1.1) APTT (21.0-31.4) sec Sodium (136-145) mmol/L Potassium (3.5-5.1) mmol/L Chloride (98-107) mmol/L Carbon Dioxide (21.0-32.0) mmol/L Anion Gap (3-11) mmol/L BUN (7-18) mg/dL Creatinine (0.55-1.02) mg/dL Estimated GFR/1.73 m2 (mL/min/1.73m2) Glucose (74-106) mg/dL Calcium (8.5-10.1) mg/dL Magnesium (1.8-2.4) mg/dL Total Bilirubin (0.2-1.0) mg/dL AST (15-37) U/L ALT (14-59) U/L Alkaline Phosphatase (46-116) U/L Troponin I (<0.06) ng/mL < 0.05 Total Protein (6.4-8.2) g/dL Albumin (3.4-5.0) g/dL ECG Data Attestation: I personally reviewed and interpreted this ECG (s) as follows: Interpretation: #1 -- Rate of 59, sinus, no acute ST elevation or depression. TX 161. QRS 96. QTc 427. #2 -- Rate of 63, sinus, no acute ST elevation or depression. TX 166. QRS 95. QTc 457. HPI General Mode of arrival: ambulatory. Date/Time Provider Initiated Documentation: 02/21/20 11:13. Limitations to Documentation: no limitations. Information obtained by: patient. HPI Narrative: Patient is a 55-year-old female with a history of hypertension, hyperlipidemia, Prinzmetal's angina presents for left-sided chest pain for the past 4 days, worse this morning while sitting and folding laundry at home. Patient was seen here in the ED and admitted for nitro responsive chest pain rule out 4 days ago and discharged after for negative troponins and unremarkable EKGs. She had been started on a nitro drip at that time but due to a headache this was stopped. It was thought at that time that patient had nonischemic chest pain. The plan was for follow-up at [facility] for an outpatient stress test with medical writer Dr. Beny Toledo. Last myocardial perfusion scan negative for ischemia with an EF of 58% in June 2019. Patient states her chest pain has been ongoing since she was discharged from here 2 days ago but became more intense while sitting and folding laundry today. She describes the pain as throbbing, left-sided with radiation down to her left wrist. She admits to shortness of breath that started during this episode. She states 4 days ago when the chest pain for started she had dizziness with this but not today. Today she denies any nausea, vomiting, dizziness, fever, cough or leg pain. She states her pain was 8/10 and throbbing at its worst today and now feels like pressure and 6/10. Patient took a baby aspirin today but was unable to find her nitro. Related Data Home Medications Medication Instructions Recorded Confirmed acetaminophen [Mapap Extra 1,000 mg PO PRN PRN 05/24/17 02/21/20 Strength] ibuprofen [Ibuprofen IB] 600 mg PO QID PRN 08/07/18 02/21/20 magnesium oxide 400 mg PO DAILY 01/14/19 02/21/20 nitroglycerin 0.4 mg sublingual 0.4 mg SL Q5-15M PRN 01/14/19 02/21/20 tablet gabapentin 300 mg capsule 300 mg PO TID #240 tab-cap 07/14/19 02/21/20 omeprazole 20 mg capsule,delayed 20 mg PO DAILY #90 tab-cap 07/26/19 02/21/20 release fluoxetine 40 mg capsule 40 mg PO DAILY #90 cap 09/07/19 02/21/20 amlodipine 2.5 mg tablet 2.5 mg PO DAILY #90 tab 10/04/19 02/21/20 atorvastatin 20 mg tablet 20 mg PO HS #90 tab 10/04/19 02/21/20 lisinopril 5 mg tablet 5 mg PO DAILY #90 tab 10/04/19 02/21/20 aspirin 81 mg tablet,delayed 81 mg PO DAILY #120 tablet. 11/29/19 02/21/20 release prochlorperazine maleate 5 mg See Rx Instructions PO TID PRN #30 12/12/19 02/21/20 tablet tab topiramate 50 mg tablet 50 mg PO QHS #30 tab 12/12/19 02/21/20 isosorbide mononitrate 30 mg PO DAILY #30 tab 02/21/20 Previous Rx's Medication Instructions Recorded gabapentin 300 mg capsule 300 mg PO TID #240 tab-cap 07/14/19 omeprazole 20 mg capsule,delayed 20 mg PO DAILY #90 tab-cap 03/24/20 release fluoxetine 40 mg capsule 40 mg PO DAILY #90 cap 09/07/19 amlodipine 2.5 mg tablet 2.5 mg PO DAILY #90 tab 10/04/19 atorvastatin 20 mg tablet 20 mg PO HS #90 tab 10/04/19 lisinopril 5 mg tablet 5 mg PO DAILY #90 tab 10/04/19 aspirin 81 mg tablet,delayed 81 mg PO DAILY #120 tablet. 11/29/19 release prochlorperazine maleate 5 mg See Rx Instructions PO TID PRN #30 12/12/19 tablet tab topiramate 50 mg tablet 50 mg PO QHS #30 tab 12/12/19 isosorbide mononitrate 30 mg PO DAILY #30 tab 02/21/20 Allergies Allergy/AdvReac Type Severity Reaction Status Date / Time phenytoin [From Dilantin] Allergy Mild Skin Rash Unverified 02/21/20 11:21 clonidine AdvReac Mild hypotension Unverified 02/21/20 11:21 tramadol AdvReac Mild Nausea Unverified 02/21/20 11:21 trazodone AdvReac Mild GI UPSET Verified 02/21/20 11:21 General Stated Complaint: Chest Pain ARCELIA: 2 Review of Systems All systems reviewed & are unremarkable except as noted in HPI and below Constitutional Constitutional: Reports as per HPI, Denies chills and Denies fever(s) Eyes Eyes: Denies blurry vision ENT Ears, Nose, Mouth, and Throat: Denies dizziness, Denies sore throat and Denies throat swelling Cardiovascular Cardiovascular: Reports chest pain and Reports dyspnea Respiratory Respiratory: Denies cough and Reports dyspnea Gastrointestinal Gastrointestinal: Denies abdominal pain, Denies diarrhea and Denies vomiting Genitourinary Genitourinary: Denies hematuria and Denies dysuria Musculoskeletal Musculoskeletal: Denies back pain and Denies numbness Integumentary/Breasts Skin/Breast: Denies lesions and Denies rash Neurologic Neurologic: Denies dizziness, Denies localized weakness and Denies numbness Allergic/Immunologic Allergic/Immunologic: Denies throat swelling [facility] Medical History (Updated 02/21/20 @ 15:19 by Jyoti Meyer DO) Bradycardia Colonoscopy planned Overdue for screening colonoscopy - 51 yrs old at 01/16/2016, no record of colo. Scheduled for screening colo 04/19/18 (consult 04/01/18) Colorectal polyps (~04/19/18) Degeneration of lumbosacral intervertebral disc Fatigue HTN (hypertension) Hyperlipidemia Internal derangement of right knee Knee pain Low back pain Migraine headache without aura Myofascial pain Otalgia of left ear Pes anserine bursitis Pes anserinus bursitis of right knee Injection: 02/07/20 Prinzmetal angina Sacroiliitis Spinal stenosis Thoracic back pain Varicose veins of left lower extremity Surgical History H/O colonoscopy (~04/19/18) S/P appendectomy S/P cholecystectomy S/P tubal ligation Status post carpal tunnel release of both wrists Family History Mother , age 69 Heart disease Lung cancer Father No problems noted. Sister , age 58 Depression Hyperlipidemia Bone cancer Sister Depression Sister No problems noted. Brother Heart disease Daughter Asthma Daughter No problems noted. Social History Smoking/Tobacco Use Status: Never Second Hand Exposure: No Alcohol Intake: former Drug use: Never Substance use type: does not use Caregiver/Support person: No Household members: none Housing: apartment Number of Children: 2 Communication Needs: None Pets and animals: Yes Pets and animals: cat(s) Sexually active: Yes Do you think of yourself as: straight/heterosexual Current gender identity: male What is your relationship status?: How often do you talk on the phone with friends or family?: three or more times per week How often do you get together with friends or relatives?: three or more times per week How often do you attend muslim or denominational services?: 1-3 times per year Do you belong to any clubs or organized social groups?: no Panel score (0-1 are the most socially isolated patients): 1 What type of physical activity do you participate in: walking Duration: < 15 minutes/day Frequency: 3-4 times per week Lizzy/Tenriism: None Special lizzy needs: No Seatbelt use: always Helmet use: Yes Helmet use: always Drive intox or ride w/intox corrugated fastener driver: No Do you feel safe at home: Yes Do you feel safe in your relationship?: Yes Exam Const General: cooperative, healthy appearing and no acute distress HENMT Head: normal to inspection Face and sinus: normal facial exam Eyes General: appearance normal, both eyes and all related structures EOM: EOM intact bilaterally Neck Neck: normal visual inspection and No submandibular swelling Lymphatic: no lymphadenopathy noted Chest Chest: normal inspection of the chest and no tenderness Resp Effort & Inspection: normal respiratory effort and able to speak in complete sentences Auscultation: clear to auscultation bilaterally Cardio Rate: regular rate Rhythm: regular rhythm GI Inspection: normal to inspection Palpation: soft, not firm, not rigid and nontender Auscultation: normal bowel sounds Back/Spine/Pelvis Thoracic/Lumbar Spine: thoracic and lumbar spine normal to inspection Pelvis: no pain with anterior-posterior compression Skin General skin exam: no rashes or lesions noted Neuro General: patient alert, patient awake and patient oriented x3 Cognition: normal cognition Speech: speech normal Motor: muscle tone normal throughout Sensory Exam: no sensory deficits noted Extrem General: normal to inspection, full ROM, capillary refill normal, no calf tenderness bilaterally and no edema Psych Appearance: grossly normal Mental Status: mental status grossly normal Speech and Movement: speech and movement normal Affect: normal affect Course Vital Signs Vital signs: Vital Signs Temperature 98.1 F 02/21/20 11:16 Pulse 60 02/21/20 11:16 Respiratory Rate 16 02/21/20 11:16 Blood Pressure 143/70 H 02/21/20 11:16 Pulse Oximetry 97 02/21/20 11:16 Temperature 98.1 F 02/21/20 11:16 Temperature Source Skin 02/21/20 11:16 Pulse 60 02/21/20 11:16 Respiratory Rate 16 02/21/20 11:16 Respiratory Effort 02/21/20 11:20 Blood Pressure 143/70 H 02/21/20 11:16 Blood Pressure Position Supine 02/21/20 11:16 Pulse Oximetry 97 02/21/20 11:16 Oxygen Delivery Method Room Air 02/21/20 11:16 Oxygen Flow Rate 0 02/21/20 11:16 Pain Level 6 02/21/20 11:16
[2020-02-21 11:39] LABS: Abs Immature Grans 0.02 10^3/uL (0.0-0.06); Absolute Basophil Count 0.04 10^3/uL (0.0-0.2); Absolute Eosinophil Count 0.27 10^3/uL (0.0-0.7); Absolute Lymphocyte Count 2.24 10^3/uL (1.2-3.4); Absolute Monocyte Count 0.66 10^3/uL (0.1-0.8); Absolute Neutrophil Count 4.94 10^3/uL (1.2-6.7); Basophils % 0.5; Eosinophils % 3.3; HCT 41.2 % (36.0-46.0); HGB 13.5 g/dL (11.2-15.7); Immature Grans % 0.2; Lymphocytes % 27.4; MCHC 32.8 % (32.0-36.0); MCV 88.4 fL (80-95); MPV 9.6 fL (8.0-11.0); Monocytes % 8.1; Neutrophils % 60.5; Nucleated RBC 0 %; Platelet Count 341 10^3/uL (130-400); RBC 4.66 10^6/uL (3.93-5.22); RDW 12.8 % (11.7-14.6); RDW-SD 41.1 fL; WBC 8.17 10^3/uL (4.4-10.8)
--- NOTE | 2020-02-21 11:45 | DI.RAD_ITS ---
EXAM: XR CHEST 2V PA LATERAL CLINICAL HISTORY: sob, chest pain, r/o acute disease TECHNIQUE: 2D digital imaging was performed. COMPARISON: CR XR CHEST 2V PA LATERAL from 02/06/2020 FINDINGS: The lungs are suboptimally inflated on the PA view. Heart size is normal. The lungs appear clear. There are mild degenerative changes in the spine. IMPRESSION: No acute abnormality.
[2020-02-21 11:54] LABS: PTT Activated 22.4 sec (21.0-31.4); Prothrombin Time 9.9 sec (9.3-11.0)
[2020-02-21 12:02] LABS: ALT 49 U/L (14-59); AST 36 U/L (15-37); Albumin 4.3 g/dL (3.4-5.0); Alkaline Phosphatase 106 U/L (46-116); Anion Gap 9.7 mmol/L (3-11); BUN 13 mg/dL (7-18); Bilirubin, Total 0.5 mg/dL (0.2-1.0); CO2 25.3 mmol/L (21.0-32.0); CREATININE 0.91 mg/dL (0.55-1.02); Calcium 9.2 mg/dL (8.5-10.1); Chloride 104 mmol/L (98-107); Glucose 115 mg/dL (74-106); Magnesium 1.9 mg/dL (1.8-2.4); Potassium 3.4 mmol/L (3.5-5.1); Sodium 139 mmol/L (136-145); Troponin I < 0.05 ng/mL (<0.06)
[2020-02-21] MEDS: LORazepam 2 MG/ML VIAL 0.5 MG IVP (12:05)
[2020-02-21] MEDS: Aspirin 81 MG CHEW 243 MG CH (12:05)
[2020-02-21] MEDS: Normal Saline 1,000 ML 1000 ML IV (12:05)
[2020-02-21] MEDS: Potassium Chloride 20 MEQ TABCR PO (12:45)
[2020-02-21] MEDS: nitroGLYcerin 0.4 MG TAB SL ×2 (12:46→12:52)
[2020-02-21] MEDS: Acetaminophen 325 MG TAB (13:00)
[2020-02-21] MEDS: Normal Saline 1,000 ML 125 ML IV (13:19)
--- NOTE | 2020-02-21 14:15 | RT.EKG_ITS ---
APPROVED REPORT Exam: Resting ECG Patient Location: E HR:63 bpm ECG Measurements Heart Rate 63 AXIS [place] 166 P 50 QRSd 95 QRS -32 QT 446 T 15 QTc 457 Conclusion Sinus rhythm...normal P axis, V-rate 60- 99 Left axis deviation...QRS axis (-30,-90) Low voltage, precordial leads...precordial leads <1.0mV
[2020-02-21 14:51] LABS: Troponin I < 0.05 ng/mL (<0.06)
[2020-02-21] MEDS: Isosorbide Mononitrate 30 MG TABCR PO (15:37)
--- NOTE | 2020-02-22 10:59 | NUR.NOTE ---
Nursing Note: Patient called stating a stress test @ [facility] tomorrow, and one in [place] Thursday. There was suppposed to be another test, but what?? Per discharge instructions she is to call Dr. Nuñez office to schedule coronary CTA. She was told and will follow up on this. Graciela Miranda
== END 2020-02-21 16:35 | disposition home or self-care (01) ==
PROVIDERS: Emergency Provider Physician Assistant; PCP Nurse Practitioner
DX: R07.89 Other chest pain (principal); G89.29 Other chronic pain; I10 Essential (primary) hypertension; I20.1 Angina pectoris with documented spasm
CPT/HCPCS: 36415; 80053; 93005; 96361; 96374; 99285; 71046; 83735; 84484; 85025; 85610; 85730; 93010; J2060

== ENCOUNTER 2020-02-23 01:30 | Outpatient (CLI) | payer MEDICARE, MEDICAID, SELFPAY ==
--- NOTE | 2020-02-23 14:30 | ETT_ITS ---
APPROVED REPORT Exam: Exercise Treadmill Patient Location: Out-Patient Room/Bed: Stress Nurse: Kylie Brown RN BMI: 27.43 Baseline Rhythm: Sinus Bradycardia Comment: occasional PVC Indications: Recurring left sided 8/10 throbbing chest pain, radiating down left arm, lasting less th an a half hour, and resolved with nitroglycerin use. Medical History Medical History: HTN. HLD. Prinzmetal angina. Bradycardia. Cardiac Medications: Nitroglycerin, Omeprazole, Amlodipine, Atorvastatin, Lisinopril, Aspirin, Isosor bide Mononitrate, Magnesium Supplement Allergies: No known drug allergies Cardiac Risk Factors: FHX of CAD, HTN, Hyperlipidemia Previous Cardiac Procedures: None. Pretest Chest Pain Characteristics: No chest pain Exercise History: Sedentary Lung Sounds: Clear to auscultation Heart Sounds: Regular Stress Test Details Test: Exercise stress testing was performed using a Michael protocol. Rest Stress HR Resting HR Supine: 52 bpm Max Heart Rate (APMHR): 166 bpm Resting HR Standin bpm Target HR (85% APMHR): 141 bpm Max HR Achieved: 152 bpm % of APMHR: 91 Recovery HR: 75 bpm HR response to stress: Normal HR response to stress BP Resting BP Supine: 138/90 mmHg Resting BP Standin/82 mmHg Max BP: 160/82 mmHg Recovery BP: 128/80 mmHg BP response to stress: Normal blood pressure response to stress. ECG Resting ECG: Sinus Bradycardia, Poor R-wave progression Ectopy: occasional PVC Stress ECG: Sinus Tachycardia, Poor R-wave progression ST Change: Horizontal ST depression Lead(s): II, V3, V4, V5, V6 Stage: [address] Deviation: 1.5 mm Arrhythmia: None Recovery ECG: Sinus Rhythm Recovery ST Change: Horizontal ST depression Lead(s): II, V4, V5, V6 Recovery ST Deviation: 1 mm Recovery Arrhythmia: None Comment: one missed beat noted during recovery period. Clinical Reason for Termination: Dyspnea Stress Symptoms: Chest pain, Dyspnea Exercise duration: 6 min59 sec Highest Stage Reached: Stage 3: 3.4 mph at 14% grade. Exercise capacity: 8.58 METs Stress ECG Conclusion 1. Patient exercised for 7 minutes (9 METS). Exercise was stopped due to dyspnea. 2. This was a maximal exertion stress test as her heart rate was above 85% of maximum predicted heart rate. 3. There were 1.[address] depressions in the lateral leads at peak exercise which resolved w ithin 1 to 2 minutes of exercise cessation. 4. The Carrasco Score ( -5) estimates an annual cardiovascular mortality of 2% and a five year survival o f 88%. Using the Carrasco Score there is an intermediate probability of angiographic coronary disease. Stress Test Summary STAGE Time (mins) Speed (mph) Grade (%) HR BP SYMPTOMS METS Supine 52 138/90 Standing 63 118/82 1 3 1.7 10 108 130/82 4.6 2 6 2.5 12 143 150/90 SOB. 4/10 chest pressure 7 1 min recovery 135 160/82 SOB. 4/10 chest pressure 3 min recovery 78 148/70 3/10 chest pressure 6 min recovery 75 128/80 symptoms resolved
== END 2020-02-23 01:50 ==
PROVIDERS: PCP Nurse Practitioner; Visit Provider Physician Assistant
DX: R07.9 Chest pain, unspecified (principal); I10 Essential (primary) hypertension; E78.5 Hyperlipidemia, unspecified; Z82.49 Family history of ischemic heart disease and other diseases of the circulatory system
CPT/HCPCS: 93016; 93018; 93017

== ENCOUNTER 2020-04-02 00:48 | Outpatient (CLI) | payer MEDICARE, MEDICAID, SELFPAY ==
--- NOTE | 2020-04-02 07:00 | DI.MAMMO_ITS ---
EXAM: MG MAMMO SCREENING CLINICAL HISTORY: screening,Z12.39. TECHNIQUE: Bilateral full field digital CC and MLO mammographic images were obtained with 3D tomosyn thesis and utilizing computer aided detection (CAD). COMPARISON: Prior mammograms dating back to 2011, the most recent being March 2019. FINDINGS: In the left breast there is a lateral of center noncalcified 6 x 5 millimeter nodule located 10 centi meters in from the nipple on the 3D MLO view which is more evident than on prior studies although agrawal s have the appearance of a probable benign intramammary lymph node on 3D imaging. Other nodule which is well defined anteriorly located in the left breast is unchanged.. A few benign microcalcificatio ns posteriorly in the right breast are unchanged. No new significant findings in the right breast. There is no new architectural distortion nor skin thickening-retraction. IMPRESSION: 1. No radiographic evidence of malignancy in the right breast. 2. Left breast nodule. Spot compression views recommended. BI-RADS Category 0 - Assessment Incomplete: Need additional imaging evaluation Breast Density - Category B - Scattered areas of fibroglandular density Breast density Category C or D implies that the patient has dense breast tissue. Dense breast tissue can make it harder to find cancer on a mammogram. Dense breast tissue is also associated with an incr eased risk of breast cancer. This information about the result of the mammogram report was provided to the patient to raise their awareness. Use this report when you speak with the patient about their risks for breast cancer, which includes their family history. At that time, you may recommend additional screening tests (Ultrasoun d or MRI) as these tests may add significant information. A negative radiographic report should not delay biopsy if a dominant or clinically suspicious mass is present. Up to ten percent of cancers are not identified on mammography. A negative report may reinforce clinical impression. Adenosis and dense breasts may obscure an underlying neoplasm. False positive reports average 6 to 10%. Patient will receive a letter notifying them of these results.
== END 2020-04-02 01:08 ==
PROVIDERS: PCP Nurse Practitioner; Visit Provider Nurse Practitioner
DX: Z12.31 Encounter for screening mammogram for malignant neoplasm of breast (principal); N63.20 Unspecified lump in the left breast, unspecified quadrant
CPT/HCPCS: 77063; 77067

== ENCOUNTER → 2020-04-04 11:38 | Outpatient (BNVA) | payer MEDICARE, MEDICAID, SELFPAY | PROVIDERS: PCP Nurse Practitioner; Referring Provider Nurse Practitioner; Visit Provider Orthopaedic Surgery | DX: M70.51 Other bursitis of knee, right knee (principal); I10 Essential (primary) hypertension | CPT/HCPCS: 20610; 99213; J1040 ==

== ENCOUNTER 2020-04-06 03:57 | Outpatient (CLI) | payer MEDICARE, MEDICAID, SELFPAY ==
--- NOTE | 2020-04-06 | DI.MAMMO_ITS ---
EXAM: MG MAMMO SCREEN CALL BACK UNI CLINICAL HISTORY: F/U MAMMO, NODULE, ? LYMPH NODE TECHNIQUE: Spot compression views and tomographic imaging were performed. COMPARISON: 2011 through 2018 FINDINGS: The breasts are composed of scattered fibroglandular densities, Breast Density category B. No suspicious masses or suspicious microcalcifications are seen. Spot compression view with tomography was performed. There is a persistent 6 millimeter circumscribe d nodule with central fatty hilum, consistent with a benign intramammary lymph node. It was seen on previous exams. There are no suspicious features. IMPRESSION: BI-RADS Category 2 - Benign Findings Yearly screening mammography is recommended. Breast Density - Category B, scattered fibroglandular densities.
== END 2020-04-06 04:17 ==
PROVIDERS: PCP Nurse Practitioner; Visit Provider Nurse Practitioner
DX: N63.0 Unspecified lump in unspecified breast (principal); R92.8 Other abnormal and inconclusive findings on diagnostic imaging of breast; R92.2 Inconclusive mammogram
CPT/HCPCS: 77063; 77067

== ENCOUNTER 2021-03-01 03:26 | Outpatient (CLI) | payer MEDICARE, MEDICAID, SELFPAY ==
[2021-03-01 09:45] LABS: ALT 45 U/L (14-59); AST 22 U/L (15-37); Albumin 4.2 g/dL (3.4-5.0); Alkaline Phosphatase 100 U/L (46-116); Anion Gap 7.1 mmol/L (3-11); BUN 13 mg/dL (7-18); Bilirubin, Total 0.6 mg/dL (0.2-1.0); CO2 27.9 mmol/L (21.0-32.0); CREATININE 0.8 mg/dL (0.55-1.02); Calcium 9.3 mg/dL (8.5-10.1); Chloride 107 mmol/L (98-107); Glucose 86 mg/dL (74-106); Potassium 4.1 mmol/L (3.5-5.1); Sodium 142 mmol/L (136-145); Total Protein 7.4 g/dL (6.4-8.2); Vitamin B12 245 pg/mL (193-986)
== END 2021-03-01 03:27 | disposition home or self-care (01) ==
LOC: LBO 03:26
PROVIDERS: PCP Family Medicine; Visit Provider Family Medicine
DX: I10 Essential (primary) hypertension (principal); E53.8 Deficiency of other specified B group vitamins
CPT/HCPCS: 36415; 80053; 82607